=== PATIENT | female | born 1955 | race Caucasian/White ===

== ENCOUNTER 2020-07-25 12:25 | Outpatient (CLI) | payer MEDICARE, SELFPAY ==
--- NOTE | ~2020-07-25 | MM_ITS ---
EXAMINATION: MM screening [facility] BI w brodie HISTORY: Screening mammogram TECHNIQUE: Craniocaudal and mediolateral oblique 3-D tomosynthesis images were obtained and synthetic 2-D images were generated. CAD analysis was submitted and interpreted. COMPARISON: 04/14/2019, 12/02/2017, 11/19/2015 BREAST PARENCHYMAL COMPOSITION: There are scattered areas of fibroglandular density. FINDINGS: There is no evidence of suspicious mass, calcification, or architectural distortion to sugg est malignancy in either breast. There has been no suspicious interval change. IMPRESSION: 1. No mammographic evidence of malignancy. 2. Recommend routine screening mammography in one year. BI-RADS Category 1: Negative Reviewed, dictated and finalized at location A.
== END 2020-07-25 12:26 | disposition home or self-care (01) ==
LOC: ANHIMG 12:30
PROVIDERS: PCP Family Medicine; Visit Provider Family Medicine
DX: Z12.31 Encounter for screening mammogram for malignant neoplasm of breast (principal)
CPT/HCPCS: 77063; 77067

== ENCOUNTER 2020-09-10 09:03 | Outpatient (NON) | payer MEDICARE, SELFPAY ==
[2020-09-10 23:00] LABS: SARS-CoV-2 RNA PCR Negative
== END 2020-09-10 09:04 ==
LOC: ANHCOVIDDT 09:04
PROVIDERS: PCP Family Medicine; Visit Provider Family Medicine
DX: Z20.828 Contact with and (suspected) exposure to other viral communicable diseases (principal); J20.9 Acute bronchitis, unspecified
CPT/HCPCS: 87635; C9803; U0003

== ENCOUNTER 2020-10-11 10:29 | Outpatient (CLI) | payer MEDICARE, SELFPAY ==
--- NOTE | 2020-10-11 10:33 | EST_ITS ---
Patient Info Name: Shefali Wyman Age: 65 years : 1955 Gender: Female Ht: 62 in Wt: 183 lbs BSA: 1.94 m2 Exam Date: 10/11/2020 10:42 AM Exam Location: [facility] Stress Patient Status: Outpatient Admit Date: 10/11/2020 Staff Ordering Physician: En Muñiz MD Attending Provider: En Muñiz MD Exercise Technologist: Gretchen Helms RD Exercise Physician: Hong Luna DO Exam Type: CA stress test treadmill Study Info Indications R07.9 - Chest pain, unspecified A treadmill exercise stress test was performed. Summary 1. 1. Negative Darin exercise stress test for ischemic ST changes by ECG criteria. 2. 2. Poor functional capacity, achieving 4 METs of workload. 3. 3. Rapid HR response to exercise achieving 85% MPHR in first 30 seconds of exercise. 4. 4. Appropriate HR recovery at 1 minute post exercise. 5. 5. No imaging with stress testing. 6. 6. Patient informed of the above results. Protocol: Darin Stress ECG Details Stage: REST Duration (min): 4 min : 44 sec Speed (mph): 0.0 Grade (%): 0 HR (bpm): 87 SBP (mmHg): 139 DBP (mmHg): 75 METS: --- Stage: REST Duration (min): 9 min : 53 sec Speed (mph): 0.0 Grade (%): 0 HR (bpm): 83 SBP (mmHg): 139 DBP (mmHg): 75 METS: --- Stage: STAGE 1 Duration (min): 1 min : 0 sec Speed (mph): 1.7 Grade (%): 10 HR (bpm): 140 SBP (mmHg): 139 DBP (mmHg): 75 METS: --- Stage: STAGE 1 Duration (min): 2 min : 0 sec Speed (mph): 1.7 Grade (%): 10 HR (bpm): 148 SBP (mmHg): 139 DBP (mmHg): 75 METS: --- Stage: STAGE 1 Duration (min): 3 min : 0 sec Speed (mph): 1.7 Grade (%): 10 HR (bpm): 148 SBP (mmHg): 183 DBP (mmHg): 93 METS: --- Stage: RECOVERY Duration (min): 0 min : 59 sec Speed (mph): 0.0 Grade (%): 0 HR (bpm): 115 SBP (mmHg): 183 DBP (mmHg): 87 METS: --- Stage: RECOVERY Duration (min): 1 min : 59 sec Speed (mph): 0.0 Grade (%): 0 HR (bpm): 100 SBP (mmHg): 183 DBP (mmHg): 87 METS: --- Stage: RECOVERY Duration (min): 2 min : 59 sec Speed (mph): 0.0 Grade (%): 0 HR (bpm): 83 SBP (mmHg): 147 DBP (mmHg): 80 METS: --- Stage: RECOVERY Duration (min): 3 min : 59 sec Speed (mph): 0.0 Grade (%): 0 HR (bpm): 87 SBP (mmHg): 147 DBP (mmHg): 80 METS: --- Stage: RECOVERY Duration (min): 4 min : 49 sec Speed (mph): 0.0 Grade (%): 0 HR (bpm): 89 SBP (mmHg): 138 DBP (mmHg): 78 METS: --- Rest HR: 83 bpm Peak HR: 154 bpm Rest Sys BP: 139 mmHg Peak Sys BP: 183 mmHg Max Pred HR: 154 bpm % Max Pred HR: 100 % Target HR: 131 bpm Max RPP: 28,182 bpm*mmHg Carrera Score: -2 Target HR Summary: Test terminated after reaching maximum heart rate Termination Reason: Reached target heart rate or workload Cardiac Symptoms: Shortness of breath Max ST Seg Deviation: -0.90 mm Total Time: 3 min : 0 sec Rest Di
== END 2020-10-11 10:30 | disposition home or self-care (01) ==
PROVIDERS: PCP Family Medicine; Visit Provider Family Medicine
DX: R07.9 Chest pain, unspecified (principal)
CPT/HCPCS: 93017

== ENCOUNTER 2020-10-29 00:24 | Outpatient (CLI) | payer MEDICARE, SELFPAY ==
[2020-10-29 17:34] LABS: SARS-CoV-2 RNA PCR Negative
== END 2020-10-29 00:25 | disposition home or self-care (01) ==
LOC: ANHCOVIDDT 00:24
PROVIDERS: Family Provider Family Medicine; PCP Family Medicine; Visit Provider Internal Medicine Gastroenterology
DX: Z01.812 Encounter for preprocedural laboratory examination (principal); Z20.822 Contact with and (suspected) exposure to COVID-19
CPT/HCPCS: C9803; U0003; U0005

== ENCOUNTER 2020-10-30 12:17 | Outpatient (RCR) | payer MEDICARE, SELFPAY ==
--- NOTE | 2020-10-30 13:27 | PTOPEVAL ---
Thank you for referring Shefali Wyman to [facility].?Pt seen for initial evaluation today due to left shoulder pain. She is pain free without limitations since her injection on 10/18/20. She demonstrates shoulder and scapular weakness. She was provided as home exercise program at this time. She does not wish to return for additional f/u visits due to no restrictions reported. Will keep chart open for 30 days for possible change in symptoms or need to progress HEP. Please review, sign, date and return this plan of care MAGALIE. I agree with and certify that the following plan of care is medically necessary. Referring Physician Date Attending Provider: Lalo Astudillo MD Referring Provider: Lalo Astudillo MD Physical Therapy Evaluation Problem Diagnosis left shoulder pain Onset begin Oscar Cause unknown Subjective Information Reports she was having Query Text:As Reported By Patient/ shooting pain of the left Family shoulder region, but has improved significantly following the injection. Injection was on 10/18/20. Since the injection she denies any pain with reaching overhead, carrying objects or UE activities. She has mild discomfort with reaching behind her back. She is performing a leg bike 20-30 min a day, but does not perform stretching. She does not perform stretching program. X-Rays For This Problem Yes: moderate AC joint degenerative changes and mild glenohumeral arthritic emery Pain Assessment Self Report Pain Level 0/10 Upper Extremity Range of Motion Scapular/ Shoulder Range of Motion Right Shoulder Flexion - Active 165 Shoulder Extension - Active 50 Shoulder Abduction - Active 166 Shoulder Medial Rotation - Active 75 Shoulder Medial Rotation - Active T7 Query Text:Reach Behind the Back Shoulder Lateral Rotation - Active 80 Shoulder Lateral Rotation - Active T1 Query Text:Reach Behind the Head Left Shoulder Flexion - Active 165 Shoulder Extension - Active 45 Shoulder Abduction - Active 155 Shoulder Medial Rotation - Active 80 Shoulder Medial Rotation - Active T7 Query Text:Reach Behind the Back Shoulder Lateral Rotation - Active 85 Shoulder Lateral Rotation - Active T1 Query Text:Reach Behind the Head Scapular/Shoulder Range of Motion rotation measured with GH abd Comments 90 dg Upper Extremity Muscle Strength Testing Scapular/Shoulder Right Scapular Retraction - Middle Trapezius 2 Poor Shoulder Fl
== END 2021-01-14 10:30 | disposition home or self-care (01) ==
LOC: ANHPT 12:17
PROVIDERS: Family Provider Family Medicine; PCP Family Medicine; Referring Provider Orthopaedic Surgery; Visit Provider Orthopaedic Surgery
DX: M25.512 Pain in left shoulder (principal)
CPT/HCPCS: 97110

== ENCOUNTER 2021-01-03 11:12 | Outpatient (CLI) | payer MEDICARE, SELFPAY | END 2021-01-03 11:13 | disposition home or self-care (01) | LOC: ANHCOVIDVC 11:12 | PROVIDERS: PCP Family Medicine | DX: Z23 Encounter for immunization (principal) | CPT/HCPCS: 0001A; 91300 ==

== ENCOUNTER 2021-01-24 11:15 | Outpatient (CLI) | payer MEDICARE, SELFPAY | END 2021-01-24 11:16 | disposition home or self-care (01) | LOC: ANHCOVIDVC 11:16 | PROVIDERS: PCP Family Medicine | DX: Z23 Encounter for immunization (principal) | CPT/HCPCS: 0002A; 91300 ==

== ENCOUNTER 2021-02-08 14:20 | Emergency (ER) | payer MEDICARE, SELFPAY ==
[2021-02-08] VITALS (15 sets, daily range): BP systolic 154–210; BP diastolic 70–86; PULSE 58–86; RESP 10–30; TEMP 36.5; O2SAT 96–100
--- NOTE | ~2021-02-08 | XR_ITS ---
EXAMINATION: XR chest 2V EXAM DATE: 02/08/2021 15:07 INDICATION: Chest pressure, high blood pressure, lightheadedness. TECHNIQUE: Frontal and lateral projections of the chest obtained and reviewed. There is no prior alex dy for comparison. FINDINGS: The lungs are clear. There are no pleural effusions. The cardiomediastinal silhouette is within normal limits. There is no pneumothorax suspected. The bones and soft tissues are unremarkab le. There are cholecystectomy clips. IMPRESSION: No acute cardiopulmonary findings. Reviewed, dictated and finalized at location A.
--- NOTE | 2021-02-08 14:22 | ECG_ITS ---
Measurements Intervals [place] Rate: 70 P: 59 KS: 151 QRS: -4 QRSD: 103 T: 85 QT: 423 QTc: 458 Interpretive Statements SINUS RHYTHM BORDERLINE R WAVE PROGRESSION, ANTERIOR LEADS BORDERLINE T WAVE ABNORMALITY- HIGH LATERAL LEADS BASELINE ARTIFACT- V4-V5 BORDERLINE ECG Electronically Signed On 02-08-2021 17:29:01 CDT by Hong Luna D.O.
[2021-02-08 14:33] LABS: Basophils Absolute Auto 0.1 K/mm3 (0.0-0.1); Basophils Percent Auto 1.4 % (0.2-1.2); Eosinophils Absolute Auto 0.1 K/mm3 (0-0.3); Eosinophils Percent Auto 1.8 % (0-4.4); Hematocrit 47.5 % (37.0-47.0); Hemoglobin 15.8 g/dL (12.0-15.0); Immature Granulocyte Absolute 0.02 K/mm3 (0.00-0.031); Immature Granulocyte Percent A 0.3 % (0-0.5); Lymphocytes Absolute Auto 3.39 K/mm3 (0.9-3.2); Lymphocytes Percent Auto 45.9 % (18.3-44.2); Mean Corpuscular HGB Conc 33.3 g/dl (32-36); Mean Corpuscular Hemoglobin 29.3 pg (26-34); Monocytes Absolute Auto 0.7 K/mm3 (0.1-0.6); Monocytes Percent Auto 9.3 % (2.6-8.5); Neutrophils Absolute Auto 3.1 K/mm3 (1.3-6.7); Neutrophils Percent Auto 41.3 % (45.5-73.1); Platelet Count Result 235 k/mm3 (150-375); Red Cell Distribution Width 12.7 % (11.5-14.5); White Blood Count 7.4 K/mm3 (4.5-10.0)
[2021-02-08 14:42] LABS: Anion Gap 7 mmol/L (8-16); Blood Urea Nitrogen 10 mg/dL (7-17); Calcium 9.5 mg/dL (8.4-10.2); Carbon Dioxide 30 mmol/L (22-30); Chloride 105 mmol/L (98-107); Estimated CRCL calculation 54 ml/min; Estimated Glomerular Filt Rate > 60; Glucose 94 mg/dL (65-105); Sodium 142 mmol/L (137-145)
[2021-02-08 14:43] LABS: INR 0.9; Partial Thromboplastin Time 30.9 SECONDS (22.3-36.8); Prothrombin Time 12.7 Seconds (11.1-14.7)
[2021-02-08 15:01] LABS: Troponin I < 0.012 ng/mL (0.000-0.034)
--- NOTE | 2021-02-08 16:04 | ED.RECABL ---
HPI - Recheck/Abnormal Lab/Rx General Chief Complaint: Recheck/Abnormal Lab/Rx Stated Complaint: high blood pressure Time Seen by Provider: 02/08/21 16:01 History of Present Illness HPI narrative: 65 yo female w/ h/o htn presents to the ED for the same. She says that she has been having frequent frontal headaches for at least a few weeks. Because of this she has been checking her blood pressure. Today when she got the headache she checked and it was about 180 systolic. She called her PCP's office they told her to come to the ED. She continues to have a mild frontal headache. She reports that she did have a brief episode of chest pain a few days ago. Related Data Home Medications Medication Instructions Recorded Confirmed cyclobenzaprine 10 mg tablet 10 mg PO TID PRN 03/06/20 02/07/21 cholecalciferol (vitamin D3) 125 5,000 unit PO DAILY tablet 10/09/20 02/07/21 mcg (5,000 unit) tablet magnesium 250 mg PO DAILY 10/25/20 02/07/21 Allergies Allergy/AdvReac Type Severity Reaction Status Date / Time morphine Allergy Unknown Itching Verified 02/08/21 14:25 poison ifeoma extract Allergy Unknown Rash Verified 02/08/21 14:25 Review of Systems Review of Systems: All systems reviewed & are unremarkable except as noted in HPI and below Constitutional: Constitutional: Denies chills, Denies fever(s) and Denies weakness Eyes: Eyes: Reports no additional eye complaints ENT: Reports system reviewed and no additional complaints, except as documented Cardiovascular: Cardiovascular: Reports as per HPI Respiratory: Respiratory: Denies dyspnea Gastrointestinal: Gastrointestinal: Denies nausea and Denies vomiting Genitourinary: Genitourinary: Reports no additional female genitourinary complaints Neurologic: Reports as per HPI [facility] Past Medical History Medical History Acute bronchitis Acute sinusitis, unspecified BMI 33.0-33.9,adult Breast cancer screening by mammogram Chest pain Chronic bilateral low back pain with bilateral sciatica Chronic constipation Chronic depression (~10/30/20) Chronic left shoulder pain Colon cancer screening Essential (primary) hypertension Gastro-esophageal reflux disease without esophagitis Lipoma of shoulder Mixed hyperlipidemia Moderate persistent asthma, uncomplicated Vitamin B12 deficiency anemia Vitamin D insufficiency Surgical History Surgical History History of cholecystectomy Family History Family History Mother Patient's mother is , Onset Age: 79 Father Acute myocardial infarction, Onset Age: 58 Sibling Acute myocardial infarction, Onset Age: 75 Grandparent Family history of malignant neoplasm Family history of malignant neoplasm of breast Social History Social History Smoking packs per day: 2 Smoking cigarettes per day: 40.0 Years smoked: 30 Smoking pack-years: 60.00 Smoking status: Former smoker Tobacco type: cigarettes Alcohol intake: never Substance use: never Substance use type: does not use Gender identity (if verbalized by the patient): Female Spiritual care concerns: No Exam Const: General: no acute distress and alert Orientation/consciousness: patient oriented x3 HENMT: Head: normal to inspection Ears: external ears normal, TM's normal bilaterally and EAC's normal Eyes: Conjunctivae: conjunctivae normal Pupils: Equal, round and reactive pupils present EOM: EOMs intact bilaterally Resp: Effort & Inspection: normal respiratory effort Auscultation: clear to auscultation bilaterally Cardio: Rate: regular rate Rhythm: regular rhythm GI: GI Palp: Yes Soft to palpation and No Tenderness to palpation present (GI) Skin: General skin exam: normal color Neuro: Genera
[2021-02-08] MEDS: KETOROLAC 30 MG/ML VIAL (*BKC) IV PUSH (17:53)
[2021-02-08] MEDS: hydrALAZINE HCL 20 MG/ML VIAL IV PUSH (17:53)
[2021-02-08] MEDS: METOCLOPRAMIDE HCL INJ 10 MG/2 ML VIAL IV PUSH (17:54)
[2021-02-08 18:07] LABS: Troponin I < 0.012 ng/mL (0.000-0.034)
== END 2021-02-08 18:57 | disposition home or self-care (01) ==
PROVIDERS: Emergency Provider Emergency Medicine; PCP Family Medicine
DX: I10 Essential (primary) hypertension (principal); K21.9 Gastro-esophageal reflux disease without esophagitis; E78.2 Mixed hyperlipidemia; J45.40 Moderate persistent asthma, uncomplicated; D51.9 Vitamin B12 deficiency anemia, unspecified; E55.9 Vitamin D deficiency, unspecified; R94.31 Abnormal electrocardiogram [ECG] [EKG]; R07.9 Chest pain, unspecified
CPT/HCPCS: 36415; 71046; 80048; 84484; 85025; 85610; 85730; 93005; 96374; 96375; 99284; J0360; J1885; J2765

== ENCOUNTER → 2021-10-14 14:04 | Outpatient (CLI) | payer MEDICARE, SELFPAY ==
--- NOTE | ~2021-10-14 | XR_ITS ---
XR chest 2V DATE: 10/14/2021 14:22 INDICATION: Cough. Acute bronchitis. TECHNIQUE: 2 views COMPARISON: 02/08/2021 2 view chest FINDINGS: Normal heart size. Aortic arch calcification. No hilar or mediastinal enlargement. Moderate bilateral hyperinflation. No pulmonary infiltrate or consolidation, pleural effusion or pulm onary vascular congestion or pneumothorax. Status post cholecystectomy. IMPRESSION: No active cardiopulmonary disease Aortic atherosclerosis Status post cholecystectomy Reviewed, dictated and finalized at location A. 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
== END ==
PROVIDERS: PCP Family Medicine; Visit Provider Family Medicine
DX: J20.9 Acute bronchitis, unspecified (principal); I70.0 Atherosclerosis of aorta; Z90.49 Acquired absence of other specified parts of digestive tract
CPT/HCPCS: 71046

== ENCOUNTER 2022-07-17 14:47 | Outpatient (CLI) | payer MEDICARE, SELFPAY ==
--- NOTE | ~2022-07-17 | DEXA_ITS ---
Bone Density Report Name: BECCA HICKS Age: 66 Sex: Female Ethnicity: Garo Date of : 1955 Indication: postmenopausal; screening for osteoporosis; asthma or emphysema; hysterectomy; Referring Provider: ROSA, SACHI Lopez Study: Bone densitometry was performed. Exam Date: July 17, 2022 Accession number: [id number] Bone Density: Region BMD T-score Z-score Classification AP Spine(L1-L4) 0.811 -2.1 -0.2 Osteopenia Femoral Neck (Left) 0.623 -2.0 -0.4 Osteopenia Total Hip (Left) 0.745 -1.6 -0.2 Osteopenia Femoral Neck (Right) 0.655 -1.7 -0.1 Osteopenia Total Hip (Right) 0.820 -1.0 0.4 Normal Total Hip Mean 0.783 -1.3 0.1 Osteopenia World Health Organization criteria for BMD impression classify patients as: Normal (T-score at or above -1.0), Osteopenia (T-score between -1.0 and -2.5), or Osteoporosis (T-score at or below -2.5). 10-year Fracture Risk(1): Major Osteoporotic Fracture 11% Hip Fracture 1.8% Reported Risk Factors: [place] (), Neck BMD=0.623, BMI=32.7 (1) FRAX(R) Version 3.08. Fracture probability calculated for an untreated patient. Fracture probability may be lower if the patient has received treatment. Clinical Information Provided by Patient: Has used the following medications: Vitamin D Has the following medical conditions: Asthma or Emphysema, Hysterectomy Patient maximum height was 62.5 Menopause Age: 49 No regular weight bearing exercise Drinks caffeinated beverages Onset of menses at age 11 Number of children 2 Impression: The patient has low bone mass, based on the Total Spine T-score. The patient has an estimated ten-year risk of hip fracture of 1.8% and an estimated ten-year risk of major fracture of 11%, based on the WHO FRAX algorithm. Discussion: BONE DENSITY IS LOW AT ONE OR MORE SKELETAL SITES. This patient's lowest T-score is low at one or more skeletal sites. It meets the World Health Organization's (WHO) criteria for ?low bone mass? (T-score between -1.0 and -2.5). The patient's 10-year risk of fracture as calculated by FRAX is less than the threshold where pharmacological therapy is recommended by the National Osteoporosis Foundation (NOF). However, all treatment decisions require clinical judgment and consideration of individual patient factors, including patient preferences, comorbidities, previous drug use, risk factors not captured in the FRAX model (e.g., frailty, falls, vitamin D deficiency, increased bone turnover, interval significant decline in bone density) and possible under or overestimation of fracture risk by FRAX. The patient should follow a healthful lifestyle (good nutrition with adequate calcium and vitamin D, and appropriate weight-bearing exercise). Follow-Up: Consider repeating this study in 2 to 3 years
--- NOTE | ~2022-07-17 | MM_ITS ---
EXAMINATION: MM screening [facility] BI w brodie HISTORY: Screening TECHNIQUE: Craniocaudal and mediolateral oblique 3-D tomosynthesis images were obtained and synthetic 2-D images were generated. CAD analysis was submitted and interpreted. COMPARISON: Comparison to multiple prior studies sequentially, with oldest reviewed study dated 05/11. BREAST PARENCHYMAL COMPOSITION: There are scattered areas of fibroglandular density. FINDINGS: There is no evidence of suspicious mass, calcification, or architectural distortion to sugg est malignancy in either breast. There has been no suspicious interval change. IMPRESSION: 1. No mammographic evidence of malignancy. 2. Recommend routine screening mammography in one year. BI-RADS Category 1: Negative Reviewed, dictated and finalized at location A.
== END 2022-07-17 14:48 | disposition home or self-care (01) ==
PROVIDERS: PCP Family Medicine; Visit Provider Nurse Practitioner Obstetrics & Gynecology
DX: Z12.31 Encounter for screening mammogram for malignant neoplasm of breast (principal); M85.88 Other specified disorders of bone density and structure, other site; M85.852 Other specified disorders of bone density and structure, left thigh; M85.851 Other specified disorders of bone density and structure, right thigh
CPT/HCPCS: 77063; 77067; 77080

== ENCOUNTER 2022-12-09 12:16 | Day surgery (SDC) | payer MEDICARE, SELFPAY ==
[2022-08-19 14:27] VITALS: BMI 32.4
[2022-09-25 10:38] VITALS: BMI 33.0
--- NOTE | 2022-09-25 11:13 | SUR.PREOP ---
PRE-OPERATIVE [address] [address] 1. Report to the Surgery Center Waiting Room, the entrance is the first door on the right after passing through the automatic sliding doors, at time 0900_on date__10/06/21____. OR Time:____1030 . - You and your visitor will be asked to self-screen and do not enter if you have any COVID symptoms. - Two visitors over, age 16 and older, are allowed.? NO children visitors are allowed at this time. - Masking is based on community transmissions levels [facility].? When the community transmission level is HIGH, masking will be required.? Signage will be posted indicating if masking is required the day of your procedure.? 2. Patients may have clear liquids (water, carbonated beverages, clear teas, apple juice) until 3 hours prior to surgery with a maximum of 20 ounces. - No food from midnight until time of surgery. - Infants may have breast milk until 4 hours before surgery, formula 6 hours prior to surgery. - Children will be allowed to drink immediately following surgery. If applicable, please bring a bottle or sippy cup to assist with drinking. Juice, water, soda, and popsicles are readily available. For infants on formula, please bring formula the day of surgery. Pacifiers are allowed. 3. Take the following medications with a SIP of water the morning of surgery: 1. amlodipine 2. duloxetine 3. pantoprazole Medications to discontinue per physician order: 1. date to discontinue: 4. No make-up, nail ukrainian, hairspray, perfume, deodorant, or body powder the day of surgery. No jewelry (including any body piercings) or valuables the day of surgery. Please take a shower or bath the night before, or the morning of, surgery with an antibacterial soap. Wear comfortable, loose fitting clothing. Children are encouraged to wear pajamas. - Jewelry must be removed prior to entering the operating room. Rings and piercings that are not removed will be cut off. The center will not accept responsibility for valuables. Please leave all valuables, including medications, at home the day of surgery. 5. When going home after surgery, a licensed reach lift truck driver must drive you home. NO public transportation without another adult. We recommend someone to stay with you, no alcoholic beverages, driving or important decision making for 24 hours after surgery. For pediatric surgeries, we recommend two adults to accompany a child home. (Only one will be allowed into the building with the patient) 6. If you or anyone in your household have experienced Covid symptoms in the past week, please notify your surgeon or surgery center at phone number below for possible testing. 7. Follow any additional instructions given by your physician. Telephone instructions given to: patient and asked if any additional questions and then verbalized understanding. Patient advised to call surgeon office or the surgery center at [phone] if any additional questions.
[2022-12-01 13:47] VITALS: BMI 32.2
[2022-12-09 12:41] VITALS: BP 137/78; PULSE 70; RESP 15; TEMP 37.2; O2SAT 99; BMI 33.7
[2022-12-09] MEDS: LACTATED RINGERS 1,000 ML 150 ML IV CONT (12:52)
--- NOTE | 2022-12-09 13:59 | PM.HPGS ---
History of Present Illness History of Present Illness Consent: Risks, benefits, and alternatives have been discussed and questions answered. Patient agrees to proceed with procedure. Chief complaint: History of Colon Polyps Narrative: Shefali Wyman is a 67 year old female Presents for screening colonoscopy. Patient has a distant history of colon polyps in 2002. Several recent colonoscopy subsequently of revealed no evidence recurrent polyps. Patient reports her current weight appetite bowel movements are normal. Patient denies abdominal pain. She has had no bleeding. Review of Systems Review of Systems: Review of systems noncontributory. [facility] Past Medical History Medical History (Updated 11/26/22 @ 12:06 by En Muñiz MD) Acute bronchitis chest x-ray on 10/14/2021 Was negative except for hyperinflation. 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 Essential (primary) hypertension Gastro-esophageal reflux disease without esophagitis Lipoma of shoulder Mixed hyperlipidemia total cholesterol 267, triglycerides 137, HDL 70, LDL 170 on 11/19/2021 Moderate persistent asthma, uncomplicated Obesity (BMI 30.0-34.9) Seasonal allergic rhinitis UTI (urinary tract infection) Vitamin B12 deficiency anemia 940 on 11/19/2021 Vitamin D insufficiency Surgical History Surgical History History of cholecystectomy Family History Family History Mother Patient's mother is , Onset Age: 79 Father Acute myocardial infarction, Onset Age: 58 Sibling Acute myocardial infarction, Onset Age: 75 Grandparent Family history of malignant neoplasm Family history of malignant neoplasm of breast Social History Social History (Updated 11/26/22 @ 11:30 by Milvia Nolen MA) Smoking packs per day: 2 Smoking cigarettes per day: 40.0 Years smoked: 30 Smoking pack-years: 60.00 Smoking status: Former smoker Tobacco type: cigarettes Alcohol intake: never Substance use: never Substance use type: does not use Lack of Transportation: No Lack of Food: Never True Current Housing: I Do Not Have Housing Concerned About Future Housing: No Difficulty Paying Gas/Electric Bills: No Difficulty Paying for Meds: No Currently Unemployed: No Education: High School Diploma/GED Difficulty w/ Childcare or Family Care: No Living arrangements: with family Occupation/Education: retired Gender identity (if verbalized by the patient): Female Spiritual care concerns: No Meds Home Medications and Allergies Home Medications Medication Instructions Recorded Confirmed Type albuterol sulfate 90 mcg/actuation 2 inhalation inhalation Q4H PRN 03/06/20 12/09/22 Rx aerosol inhaler (ProAir HFA) shortness of breath #54 grams cyclobenzaprine 10 mg tablet 10 mg PO TID PRN muscle spasm 03/06/20 12/09/22 History budesonide-formoterol HFA 160 2 puff inhalation Q12H #30.6 grams 10/09/20 12/09/22 Rx mcg-4.5 mcg/actuation aerosol inhaler (Symbicort) cholecalciferol (vitamin D3) 125 5,000 unit PO DAILY 10/09/20 12/09/22 History mcg (5,000 unit) tablet cyanocobalamin (vitamin B-12) 2,500 mcg PO DAILY #30 tabs 10/09/20 12/09/22 Rx 2,500 mcg tablet cetirizine 10 mg tablet (Zyrtec) 10 mg PO DAILY PRN Nasal Congestion 04/08/21 12/09/22 History fluticasone propionate 50 1 spray intranasal Q12H PRN 04/08/21 12/09/22 History mcg/actuation nasal Allerg
--- NOTE | 2022-12-09 14:43 | WPDANESEPPF ---
Anes - Initial Pre Proc Eval Procedure: Operation Date: 12/09/22 14:00 Proposed Procedures p Screening Colonoscopy - Edouard Snyder MD Date/Time: 12/09/22 14:43 Surgeon: Edouard Snyder MD Pre Op Diagnosis: History of Colon Polyps Patient Data Age: 67 Gender: F Height: 1.57 m Weight: 83.7 kg Last Vital Signs Temp 37.2 C 12/09/22 12:41 Pulse 70 12/09/22 12:41 Resp 15 12/09/22 12:41 BP 137/78 12/09/22 12:41 Pulse Ox 99 12/09/22 12:41 O2 Del Method Room Air 12/09/22 12:41 Allergies Allergy/AdvReac Type Severity Reaction Status Date / Time morphine Allergy Unknown Itching Verified 12/09/22 12:35 poison ifeoma extract Allergy Unknown Rash Verified 12/09/22 12:35 Home Medications Medication Instructions Recorded Confirmed Type albuterol sulfate 90 mcg/actuation 2 inhalation inhalation Q4H PRN 03/06/20 12/09/22 Rx aerosol inhaler (ProAir HFA) shortness of breath #54 grams cyclobenzaprine 10 mg tablet 10 mg PO TID PRN muscle spasm 03/06/20 12/09/22 History budesonide-formoterol HFA 160 2 puff inhalation Q12H #30.6 grams 10/09/20 12/09/22 Rx mcg-4.5 mcg/actuation aerosol inhaler (Symbicort) cholecalciferol (vitamin D3) 125 5,000 unit PO DAILY 10/09/20 12/09/22 History mcg (5,000 unit) tablet cyanocobalamin (vitamin B-12) 2,500 mcg PO DAILY #30 tabs 10/09/20 12/09/22 Rx 2,500 mcg tablet cetirizine 10 mg tablet (Zyrtec) 10 mg PO DAILY PRN Nasal Congestion 04/08/21 12/09/22 History fluticasone propionate 50 1 spray intranasal Q12H PRN 04/08/21 12/09/22 History mcg/actuation nasal Allergy Symptoms spray,suspension ibuprofen 800 mg tablet 800 mg PO TID PRN pain #90 tabs 05/02/21 12/09/22 Rx montelukast 10 mg tablet 10 mg PO DAILY #90 tabs 05/01/22 12/09/22 Rx pantoprazole 40 mg tablet,delayed 40 mg PO QAM #90 tabs 05/01/22 12/09/22 Rx release (Protonix) sodium,potassium,mag sulfates 17.5 See Rx Instructions PO .COMPLEX 08/29/22 11/26/22 Rx gram-3.13 gram-1.6 gram oral soln #354 mL (Suprep Bowel Prep Kit) duloxetine 30 mg capsule,delayed 30 mg PO DAILY #90 caps 10/02/22 12/09/22 Rx release (Cymbalta) amlodipine 5 mg tablet 5 mg PO DAILY #90 tabs 11/07/22 12/09/22 Rx irbesartan 300 mg tablet 300 mg PO DAILY #90 tabs 11/07/22 12/09/22 Rx Patient hx anesthesia problems: none Family hx anesthesia problems: none Results Review: All pre-operative results and documents have been reviewed as part of the pre-operative evaluation. [facility] Past Medical History Medical History Acute bronchitis chest x-ray on 10/14/2021 Was negative except for hyperinflation. Acute sinusitis, unspecified BMI 32.0-32.9,adult BMI 33.0-33.9,adult BMI 34.0-34.9,adult Breast cancer screening by mammogram Chest pain Chronic bilateral low back pain with bilateral sciatica Chronic constipation Chronic depression (~10/30/20) Chronic left shoulder pain Colon cancer screening Encounter for HCV screening test for low risk patient (10/10/22) screening by house calls advanced advanced practice registered nurse 10/10/2022 was negative for hepatitis C. Essential (primary) hypertension Gastro-esophageal reflux disease without esophagitis Lipoma of shoulder Mixed hyperlipidemia total cholesterol 267, triglycerides 137, HDL 70, LDL 170 on 11/19/2021 Moderate persistent asthma, uncomplicated Obesity (BMI 30.0-34.9) Seasonal allergic rhinitis UTI (urinary tract infection) Vitamin B12 deficiency anemia 940 on 11/19/2021 Vitamin D insufficiency Surgical History Surgical History (Updated 12/09/22 @ 14:43 by Fili Robertson MD) H/O: hysterectomy History of cholecystectomy Family History Family History Mother Patient's mother is , Onset Age: 79 Father Acute myocardial infarction, Onset Age: 58 Sibling Acute myocardial infarction, Onset Age: 75 Grandp
[2022-12-09 15:22] VITALS: BP 131/69; PULSE 78; RESP 15; O2SAT 98
[2022-12-09 15:32] VITALS: BP 142/76; PULSE 78; RESP 15; O2SAT 99
--- NOTE | 2022-12-09 15:32 | WPDANESPN ---
Anes - Prog Note Post-Op Date/Time: 12/09/22 15:32 Cardiovascular status: normal Respiratory status: normal Airway patency: baseline Mental status: baseline Vital Signs: Last Vital Signs Temp 37.2 C 12/09/22 12:41 Pulse 78 12/09/22 15:22 Resp 15 12/09/22 15:22 BP 131/69 12/09/22 15:22 Pulse Ox 98 12/09/22 15:22 O2 Del Method Room Air 12/09/22 15:22 Pain Score (VAS): 0/10 I/O: Intake & Output 12/08/22 12/09/22 12/09/22 23:59 07:59 15:59 Intake Total 800 Balance 800 Patient Feedback: Patient satisfied with anesthetic care.
[2022-12-09 15:42] VITALS: BP 148/83; PULSE 66; RESP 15; O2SAT 100
== END 2022-12-09 16:06 | disposition home or self-care (01) ==
PROVIDERS: PCP Family Medicine; Visit Provider Internal Medicine Gastroenterology
PROC: 0DJD8ZZ Inspection of Lower Intestinal Tract, Via Natural or Artificial Opening Endoscopic (ICD-10-PCS; CPT 45378; principal; 2022-12-09 14:00)
DX: Z12.11 Encounter for screening for malignant neoplasm of colon (principal)
CPT/HCPCS: 45378

== ENCOUNTER 2023-04-06 13:36 | Outpatient (CLI) | payer MEDICARE, SELFPAY ==
--- NOTE | ~2023-04-06 | XR_ITS ---
EXAMINATION: XR chest 2V DATE: 04/06/2023 14:05 INDICATION: Acute bronchitis TECHNIQUE: Frontal and lateral views of the chest are obtained COMPARISON: 10/14/2021 FINDINGS: The lungs are free of acute opacities. No pleural effusion or pneumothorax. The cardiomedia stinal silhouette is normal. There is mild thoracic spondylosis. Surgical clips in the upper abdomen on the lateral view are likely from prior cholecystectomy. IMPRESSION: 1. No acute cardiopulmonary abnormality. Reviewed, dictated and finalized at location B.
== END 2023-04-06 13:37 | disposition home or self-care (01) ==
PROVIDERS: PCP Family Medicine; Visit Provider Family Medicine
DX: J20.9 Acute bronchitis, unspecified (principal)
CPT/HCPCS: 71046

== ENCOUNTER 2023-04-23 11:27 | Emergency (ER) | payer MEDICARE, SELFPAY ==
[2023-04-23 11:38] VITALS: BP 147/85; PULSE 85; RESP 16; TEMP 35.9; O2SAT 97
[2023-04-23 11:40] VITALS: BP 147/85; PULSE 85; RESP 16; TEMP 35.9; O2SAT 97
--- NOTE | 2023-04-23 11:50 | ED.SKABFB ---
HPI - Skin/Abscess/Foreign Bdy General Chief complaint: Skin/Abscess/Foreign Body Stated complaint: RASH Time Seen by Provider: 04/23/23 11:50 Source: patient Mode of arrival: ambulatory Limitations: no limitations History of Present Illness HPI narrative: 67 yo F presents with c/o itchy rash to L forearm for 2 wks. has tried benadryl cream and hydrocortisone with no relief. Pt states she set bags full of clothes on side of road in some weeds to be picked up. No one came so she carried bags into her garage. Unsure if she was exposed to posion ifeoma. No other complaints today. All systems reviewed and negative except as noted above. Related Data Home Medications Medication Instructions Recorded Confirmed fluticasone propionate 50 1 spray intranasal Q12H PRN 04/08/21 04/23/23 mcg/actuation nasal Allergy Symptoms spray,suspension Allergies Allergy/AdvReac Type Severity Reaction Status Date / Time morphine Allergy Unknown Itching Verified 04/23/23 11:38 poison ifeoma extract Allergy Unknown Rash Verified 04/23/23 11:38 Review of Systems Review of Systems: CONSTITUTIONAL: Denies fever, chills, or sweats. EYES: Denies visual changes, redness, or discharge. ENT: Denies rhinorrhea, congestion, sore throat, or otalgia. CARDIOVASCULAR: Denies chest pain, palpitations, or edema. RESPIRATORY: Denies cough or dyspnea. GASTROINTESTINAL: Denies abdominal pain, nausea, vomiting, or diarrhea. GENITOURINARY: Denies dysuria or hematuria. SKIN: Reports rash, itching. MUSCULOSKELETAL: Denies back pain, joint pain, or myalgia. NEUROLOGIC: Denies headache, numbness, or weakness. PSYCHIATRIC: Denies anxiety or depression. All other systems reviewed are negative, except as documented in HPI. [facility] Past Medical History Medical History (Updated 04/23/23 @ 11:58 by Monika Christianson NP) Acute bronchitis chest x-ray on 10/14/2021 Was negative except for hyperinflation. chest x-ray 04/06/2023 with no active lung disease. Acute sinusitis, unspecified Acute thoracic back pain (~02/2023) spondylosis of the thoracic spine on chest x-ray 04/06/2023. BMI 32.0-32.9,adult BMI 33.0-33.9,adult BMI 34.0-34.9,adult Breast cancer screening by mammogram Chest pain Chronic bilateral low back pain with bilateral sciatica Chronic constipation Chronic depression (~10/30/20) Chronic left shoulder pain Colon cancer screening history of colon polyps 2002 with normal subsequent colonoscopies. Colonoscopy 12/09/2022 was normal with recheck in 10 years. Encounter for HCV screening test for low risk patient (10/10/22) screening by house calls advanced state appellate clerk 10/10/2022 was negative for hepatitis C. Essential (primary) hypertension Gastro-esophageal reflux disease without esophagitis Lipoma of shoulder Mixed hyperlipidemia total cholesterol 267, triglycerides 137, HDL 70, LDL 170 on 11/19/2021 Moderate persistent asthma, uncomplicated Obesity (BMI 30.0-34.9) Seasonal allergic rhinitis UTI (urinary tract infection) Vitamin B12 deficiency anemia 940 on 11/19/2021 Vitamin D insufficiency Surgical History Surgical History (Updated 12/09/22 @ 14:43 by Fili Robertson MD) H/O: hysterectomy History of cholecystectomy Family History Family History Mother Patient's mother is , Onset Age: 79 Father Acute myocardial infarction, Onset Age: 58 Sibling Acute myocardial infarction, Onset Age: 75 Grandparent Family history of malignant neoplasm Family history of malignant neoplasm of breast Social History Social History Smoking packs per day: 2 Smoking cigarettes per day: 40.0 Years smoked: 30 Smoking pack-years: 60.00 Smoking status: Former smoker Tobacco type: cigarettes Alcohol intake: never Substance use: never Substance use type: does not use Lack of Transp
== END 2023-04-23 12:03 | disposition home or self-care (01) ==
PROVIDERS: Emergency Provider Nurse Practitioner Family; PCP Family Medicine
DX: L25.5 Unspecified contact dermatitis due to plants, except food (principal); Z87.891 Personal history of nicotine dependence; I10 Essential (primary) hypertension; K21.9 Gastro-esophageal reflux disease without esophagitis; E78.2 Mixed hyperlipidemia; J45.909 Unspecified asthma, uncomplicated; E66.9 Obesity, unspecified; Z68.32 Body mass index [BMI] 32.0-32.9, adult
CPT/HCPCS: 99213; G0463

== ENCOUNTER 2023-07-31 07:56 | Outpatient (CLI) | payer MEDICARE, SELFPAY ==
--- NOTE | 2023-08-01 06:07 | WPDPFTINT ---
PFT Procedure Performed PFT Procedure Performed Spirometry with Pre/Post Bronchodilator Plethysmography (Lung Vol) Diffusing Cap (DLCO) Flow Vol Loop PFT Interpretation This is a pulmonary function test with pre and post-bronchodilator spirometry, plethysmography and diffusing capacity. The test was performed and results interpreted in accordance with the 2019 and 2005 ATS/ERS Task Force guidelines respectively using the Global Lung Function Initiative-2012 reference equations. Patient demonstrated good effort and cooperation. Reproducibility criteria were met. The quality of the pre bronchodilator spirometry maneuver was Grade A and post bronchodilator spirometry maneuver was Grade A. Findings: Spirometry: There is decreased maximal expiratory airflow at all lung volumes with concave expiratory flow tracing. The contour the inspiratory flow tracing is normal. The pre bronchodilator FVC is 2.44 L, 90% predicted. The pre bronchodilator FEV1 is 1.07 L, 51% predicted. The pre bronchodilator FEV1: FVC ratio is 44%. The post bronchodilator FVC is 2.82 L, representing a 16% increase. The post bronchodilator FEV1 is 1.24 L, representing a 16% increase. The post bronchodilator FEV1: FVC ratio is 44%. Plethysmography: The total lung capacity is 5.17 L, 109% predicted. The functional residual capacity is 3.00 L, 112% predicted. The residual volume is 2.73 L, 134% predicted. Diffusing capacity: The diffusing capacity unadjusted for hemoglobin and carboxyhemoglobin is 10.0, 50% predicted. The diffusing capacity adjusted for alveolar volume is 2.81, 64% predicted. Impression: There is a moderately severe obstructive abnormality with significant improvement after inhaling a single dose of albuterol. Lung volumes are normal. The diffusing capacity unadjusted for hemoglobin and carboxyhemoglobin is moderately decreased and remains mildly decreased when adjusted for alveolar volume. There are no prior studies for comparison
== END 2023-07-31 07:57 | disposition home or self-care (01) ==
PROVIDERS: PCP Family Medicine; Visit Provider Physician Assistant
DX: J45.909 Unspecified asthma, uncomplicated (principal); R05.3 Chronic cough; R94.2 Abnormal results of pulmonary function studies
CPT/HCPCS: 94060; 94726; 94729

== ENCOUNTER 2023-10-13 13:18 | Outpatient (CLI) | payer MEDICARE, SELFPAY ==
--- NOTE | ~2023-10-13 | CT_ITS ---
EXAMINATION:CT diagnostic chest wo con DATE: 10/13/2023 13:53 INDICATION: Chronic cough. Unspecified asthma. TECHNIQUE: Computed tomography (CT) of the chest was performed without intravenous contrast. Automate d exposure control and iterative reconstruction technique were employed. The dose-length product (DLP ) was 294.39 mGy-cm. COMPARISON: Chest 2 views 04/06/2023 FINDINGS: The lungs demonstrate mild atelectasis. There is a 6 mm nodule at minor fissure, likely suzanne ign. There is moderate emphysema. No pleural effusion. The heart size is normal. There are coronary a rtery calcifications. No pericardial effusion. There is a small sliding hiatal hernia. There are emery ges of cholecystectomy. There is severe cervical and thoracic spondylosis. There is chronic height lo ss of multiple vertebral bodies. IMPRESSION: 1. Moderate emphysema. Reviewed, dictated and finalized at location E. [facility] [employer] IMPRESSION: 1. Moderate emphysema.
== END 2023-10-13 13:19 | disposition home or self-care (01) ==
PROVIDERS: PCP Family Medicine; Visit Provider Physician Assistant
DX: R94.2 Abnormal results of pulmonary function studies (principal); R05.3 Chronic cough; J45.909 Unspecified asthma, uncomplicated; J43.9 Emphysema, unspecified
CPT/HCPCS: 71250

== ENCOUNTER 2024-01-21 09:07 | Outpatient (CLI) | payer MEDICARE, SELFPAY ==
[2024-01-21 10:21] LABS: Alanine Aminotransferase 16 U/L (6-35); Albumin Level 4.4 g/dL (3.5-5.1); Alkaline Phosphatase 89 U/L (38-126); Anion Gap 4 mmol/L (4-12); Aspartate Amino Transferase 24 U/L (14-36); Bilirubin,Total 0.5 mg/dL (0.2-1.3); Blood Urea Nitrogen 14 mg/dL (7-17); Calcium 9.4 mg/dL (8.4-10.2); Carbon Dioxide 32 mmol/L (22-30); Chloride 107 mmol/L (98-107); Cholesterol 236 mg/dL (0-200); Estimated Glomerular Filt Rate > 60; Glucose 95 mg/dL (65-110); HDL Direct 54 mg/dL; Potassium 3.9 mmol/L (3.4-5.0); Sodium 143 mmol/L (137-145); Triglycerides 154 mg/dL (<150)
[2024-01-21 10:32] LABS: LDL Cholesterol Direct 140 mg/dL
== END 2024-01-21 09:08 | disposition home or self-care (01) ==
LOC: ANHLAB 09:10
PROVIDERS: PCP Family Medicine; Visit Provider Internal Medicine Cardiovascular Disease
DX: E78.2 Mixed hyperlipidemia (principal)
CPT/HCPCS: 36415; 80053; 80061

== ENCOUNTER 2024-03-25 08:29 | Outpatient (CLI) | payer MEDICARE, SELFPAY ==
[2024-03-25 09:59] LABS: Alanine Aminotransferase 18 U/L (6-35); Albumin Level 4.1 g/dL (3.5-5.1); Alkaline Phosphatase 96 U/L (38-126); Anion Gap 6 mmol/L (4-12); Aspartate Amino Transferase 29 U/L (14-36); Bilirubin,Total 0.4 mg/dL (0.2-1.3); Blood Urea Nitrogen 7 mg/dL (7-17); Calcium 8.8 mg/dL (8.4-10.2); Carbon Dioxide 27 mmol/L (22-30); Chloride 108 mmol/L (98-107); Cholesterol 161 mg/dL (0-200); Estimated Glomerular Filt Rate > 60; Glucose 93 mg/dL (65-110); HDL Direct 42 mg/dL; Potassium 3.7 mmol/L (3.4-5.0); Sodium 141 mmol/L (137-145); Triglycerides 289 mg/dL (<150)
[2024-03-25 10:10] LABS: LDL Cholesterol Direct 86 mg/dL
== END 2024-03-25 08:30 | disposition home or self-care (01) ==
PROVIDERS: PCP Family Medicine; Visit Provider Internal Medicine Cardiovascular Disease
DX: E78.2 Mixed hyperlipidemia (principal)
CPT/HCPCS: 36415; 80053; 80061

== ENCOUNTER 2024-05-25 10:54 | Emergency (ER) | payer MEDICARE, SELFPAY ==
[2024-05-25 11:04] VITALS: BP 145/89; PULSE 96; RESP 16; TEMP 36.2; O2SAT 98
--- NOTE | 2024-05-25 11:05 | ED.URI ---
HPI - URI/Sore Throat General Chief Complaint: Upper Respiratory Infection Stated Complaint: SINUS HEADACHE/L NECK/SHOULDER PAIN WITH KNOT Time Seen by Provider: 05/25/24 11:08 Source: patient and RN notes reviewed Mode of arrival: ambulatory Limitations: no limitations History of Present Illness HPI Narrative: 68 year old female who presents to [facility] care with complaints of sinus pressure and frontal headache for the past 2 days. Patient reports that she got an antibiotic from Dr Muñiz about 2 weeks ago and took it for her sinuses and cough and did seen to get better till she started with headache a couple of days ago. Patient reports that she has no fevers, chills or sweats, denies any cough or chest congestion. Patient reports that she also has some pressure to her left neck and shoulder, denies any fevers, Patient reports that she has been taking some Ibuprofen for her symptoms and did take some Sudafed. MD elicited complaint: cough, rhinorrhea, nasal congestion and other (headache) Onset (ago): day(s) (2) Severity: mild Able to tolerate fluids by mouth: Yes Treatments prior to arrival: ibuprofen and other (Sudafed) Related Data Home Medications Medication Instructions Recorded Confirmed Alpha Brain 1 cap PO DAILY 05/25/24 05/25/24 B Complex Plus Vitamin C 1 tab-cap PO DAILY 05/25/24 05/25/24 azithromycin 250 mg tablet mg 05/25/24 Allergies Allergy/AdvReac Type Severity Reaction Status Date / Time morphine Allergy Unknown Itching Verified 05/25/24 11:03 poison ifeoma extract Allergy Unknown Rash Verified 05/25/24 11:03 Review of Systems Review of Systems: CONSTITUTIONAL: Denies malaise, chills, sweats, or fever. EYES: Denies visual changes, redness, or discharge. ENT: Reports rhinorrhea, congestion, sinus pain,no otalgia and no sore throat. CARDIOVASCULAR: Denies chest pain, palpitations, or edema. RESPIRATORY: Reports no cough.? Denies dyspnea. GASTROINTESTINAL: Denies abdominal pain, nausea, vomiting, diarrhea SKIN: Denies rash or itching. MUSCULOSKELETAL: Denies myalgia. NEUROLOGIC: Reports some frontal headache. All systems reviewed & are unremarkable except as noted in HPI and below PMFSH Past Medical History Medical History Acute bronchitis chest x-ray on 10/14/2021 Was negative except for hyperinflation. chest x-ray 04/06/2023 with no active lung disease. Acute sinusitis, unspecified Acute thoracic back pain (~02/2023) spondylosis of the thoracic spine on chest x-ray 04/06/2023. At low risk for fall BMI 32.0-32.9,adult BMI 33.0-33.9,adult BMI 34.0-34.9,adult Breast cancer screening by mammogram Chest pain Chronic bilateral low back pain with bilateral sciatica Chronic bilateral thoracic back pain (07/07/17) MRI of the thoracic spine on 07/10/2023 with degenerative changes. Spondylosis of the thoracic spine on chest x-ray 07/04/2023. Chronic constipation Chronic cough CT of the chest on 10/13/2023 with moderate Emphysema, coronary artery calcifications, severe spondylosis of cervical thoracic spine. Chronic depression (~10/30/20) Chronic left shoulder pain Colon cancer screening history of colon polyps 2002 with normal subsequent colonoscopies. Colonoscopy 12/09/2022 was normal with recheck in 10 years. Coronary artery calcification seen on CAT scan (10/13/23) calcifications noted on CT of the chest 10/13/2023. Encounter for HCV screening test for low risk patient (10/10/22) screening by house calls advanced speech clinician 10/10/2022 was negative for hepatitis C. Essential (primary) hypertension Gastro-esophageal reflux disease without esophagitis Lipoma of shoulder Mixed hyperlipidemia total cholesterol 267, triglycerides 137, HDL 70, LDL 170 on 11/19/2021. Cholesterol 277, triglycerides 147, HDL excellent at 60, LDL 188 with ratio 4.6 on 06/23/2023. Cholesterol 236, triglycerides 154, HDL 54, LDL 140 on 01/21/2024.
[2024-05-25 11:08] VITALS: BP 145/89; PULSE 96; RESP 16; TEMP 36.2; O2SAT 98
== END 2024-05-25 11:26 | disposition home or self-care (01) ==
PROVIDERS: Emergency Provider Registered Nurse; PCP Family Medicine
DX: R51.9 Headache, unspecified (principal); J34.89 Other specified disorders of nose and nasal sinuses; Z87.891 Personal history of nicotine dependence; I10 Essential (primary) hypertension; K21.9 Gastro-esophageal reflux disease without esophagitis; E78.2 Mixed hyperlipidemia; J45.909 Unspecified asthma, uncomplicated; E66.9 Obesity, unspecified; Z68.32 Body mass index [BMI] 32.0-32.9, adult
CPT/HCPCS: 99213; G0463

== ENCOUNTER 2024-10-12 08:37 | Outpatient (CLI) | payer MEDICARE, SELFPAY ==
--- NOTE | ~2024-10-12 | CT_ITS ---
EXAMINATION: CT diagnostic chest wo con DATE: 10/12/2024 09:11 INDICATION: R91.1 - Solitary pulmonary nodule TECHNIQUE: Computed tomography (CT) of the chest was performed without intravenous contrast. Addition al 3D reconstructions utilizing coronal maximum intensity projection (MIP) were performed. Automated exposure control and iterative reconstruction technique were employed. The dose-length product was 10 0.19 mGy-cm. COMPARISON: 10/13/2023 FINDINGS: Moderate emphysema. Unchanged discoid atelectasis/scarring at the lingula. No interval change in a 12 x 3 x 3 mm flat triangular likely benign mairann fissural lymph node along the right minor fissure. The re is a second 3 mm triangular likely mariann fissural lymph node more caudally along the minor fissure. No pneumonia, pulmonary edema or pleural effusion. Heart size is normal. Atherosclerotic coronary ar blayne calcification is. No pericardial effusion. Thoracic aorta is normal in caliber. No pathologicall y enlarged thoracic lymphadenopathy. Cholecystectomy clips the gallbladder fossa. Small sliding-type hiatal hernia. Severe thoracic and lower cervical spondylosis. Again seen is chronic mild anterior we dging of a few thoracic and upper lumbar vertebral bodies. IMPRESSION: 1. Moderate emphysema with no interval change in the previously noted likely mariann fissural lymph node along the minor fissure. Reviewed, dictated and finalized at location B. TEACHER IMPRESSION: 1. Moderate emphysema with no interval change in the previously noted likely pe ri fissural lymph node along the minor fissure.
== END 2024-10-12 08:38 | disposition home or self-care (01) ==
PROVIDERS: PCP Family Medicine; Visit Provider Physician Assistant
DX: R91.1 Solitary pulmonary nodule (principal); J43.9 Emphysema, unspecified
CPT/HCPCS: 71250

== ENCOUNTER 2024-10-20 13:58 | Inpatient (IN) | payer MEDICARE, SELFPAY ==
[2024-10-20] VITALS (22 sets, daily range): BP systolic 114–154; BP diastolic 64–105; PULSE 77–121; RESP 12–37; TEMP 36.4; O2SAT 88–97; BMI 32.3
--- NOTE | ~2024-10-20 | CT_ITS ---
EXAMINATION: CT brain wo con DATE: 10/22/2024 11:13 INDICATION: Confusion TECHNIQUE: Computed tomography (CT) of the head was performed without intravenous contrast. Sagittal and coronal reconstructions were performed. The mA was adjusted according to patient size. Iterative reconstruction technique was employed. The dose-length product was 605.33 mGy-cm. COMPARISON: None FINDINGS: No acute intracranial hemorrhage, acute infarction or abnormal extra axial fluid collection. There is moderate to severe scattered white matter hypoattenuation consistent with chronic small vessel ische vikas disease. Symmetric prominence of the sulci consistent with mild age-appropriate diffuse cerebral volume loss. Ventricles are normal and symmetric. No mass/mass effect. The orbits, paranasal sinuses and mastoid air cells are normal. IMPRESSION: 1. No acute intracranial process. 2. Age-related changes including mild diffuse volume loss and moderate to severe scattered white hanny er hypoattenuation consistent with chronic small vessel ischemic disease. Reviewed, dictated and finalized at location A. MOTIVE ACCESSORY INSTALLER IMPRESSION: 1. No acute intracranial process. 2. Age-related changes including mild diffuse volume loss and moderate to sever e scattered white matter hypoattenuation consistent with chronic small vessel i schemic disease.
--- NOTE | ~2024-10-20 | CT_ITS ---
EXAMINATION: CT abdomen pelvis wo con DATE: 10/20/2024 14:29 INDICATION: Diarrhea. TECHNIQUE: Computed tomography (CT) of the abdomen and pelvis was performed without intravenous contr ast. Automated exposure control and iterative reconstruction technique were employed. The dose-length product was 484.49 mGy-cm. COMPARISON: CT abdomen 06/18/2004, chest CT 10/12/2024 FINDINGS: The visualized portions of lung bases demonstrate mild atelectasis. There are new centrilob ular nodules and groundglass opacities in basilar right lower lobe, consistent with mild pneumonia. N o pleural effusion. The heart size is normal. There are coronary artery calcifications. No pericardia l effusion. There is a small sliding hiatal hernia. There are changes of cholecystectomy. The liver, spleen, pancreas, adrenal glands, and kidneys are normal. There is no urolithiasis. There are no dila chandu loops of bowel. The appendix is normal. There is calcified atherosclerosis of the aorta and many of the other arteries. There are no pathologically enlarged lymph nodes. There is no free intraperito meng fluid. There is severe thoracic spondylosis and moderate lumbar spondylosis. There is a chronic compression fracture of L1. IMPRESSION: 1. Mild right lower lobe pneumonia. Reviewed, dictated and finalized at location B. SIT OPERATOR
--- NOTE | ~2024-10-20 | XR_ITS ---
EXAMINATION: XR chest 2V DATE: 10/20/2024 14:35 INDICATION: Wheezing. TECHNIQUE: Frontal and lateral views of the chest were obtained. COMPARISON: Chest 2 view 04/06/2023, CT abdomen and pelvis 10/20/2024 FINDINGS: There is mild atelectasis in lingula. No pleural effusion or pneumothorax. The heart size i s normal. Surgical clips in the right upper quadrant are likely from cholecystectomy. There is mild c hronic anterior wedging of multiple mid thoracic vertebral bodies. IMPRESSION: 1. Mild atelectasis in lingula. Reviewed, dictated and finalized at location B. ADMINISTRATIVE TECH
--- NOTE | 2024-10-20 14:06 | ED_ITS ---
HPI - Nausea/Vomiting/Diarrhea General Chief complaint: Nausea/Vomiting/Diarrhea <Gail Freed, PERSONAL INJURY LEGAL ASSISTANT - Last Filed: 10/20/24 14:08> Stated complaint: diarrhea <Gail Freed, PERSONAL INJURY LEGAL ASSISTANT - Last Filed: 10/20/24 14:08> Time Seen by Provider: 10/20/24 16:58 <Gail Freed, PERSONAL INJURY LEGAL ASSISTANT - Last Filed: 10/20/24 14:08> Focused HPI: Patient is a 69-year-old female who presents to the ER with 2 week history of diarrhea and black tarry stools. She reports she had a ?virus right after [place] and her primary care provider put her on antibiotics. Patient reports her diarrhea ?got worse after she recovered from a virus. She denies any abdominal pain, nausea, vomiting. Patient endorses decreased p.o. intake. She reports this morning she had a black tardy stool, but the color of her stool has now turned back to ?brown. Patient denies any use of blood thinners. She endorses a history COPD and high blood pressure. GENERAL: Well-appearing, well-nourished, and in no acute distress. HEAD: Normocephalic, atraumatic. CHEST: Wheezing lower bases upon auscultation. ?No respiratory distress. HEART: Regular rate and rhythm.? NEURO: ?Alert and oriented x3. Patient screened in triage and initial orders placed.? ?Additional care and disposition to be based upon?diagnostic testing and treatment. <Gail Freed, PERSONAL INJURY LEGAL ASSISTANT - Last Filed: 10/20/24 14:08> Focused HPI: Patient is a 69-year-old female who presents to the ER with 2 week history of diarrhea and black tarry stools. She reports she had a ?virus right after and her primary care provider put her on antibiotics. Patient reports her diarrhea ?got worse after she recovered from a virus. She denies any abdominal pain, nausea, vomiting. Patient endorses decreased p.o. intake. She reports this morning she had a black tardy stool, but the color of her stool has now turned back to ?brown. Patient denies any use of blood thinners. She endorses a history COPD and high blood pressure. GENERAL: Well-appearing, well-nourished, and in no acute distress. HEAD: Normocephalic, atraumatic. CHEST: Wheezing lower bases upon auscultation. ?No respiratory distress. HEART: Regular rate and rhythm.? NEURO: ?Alert and oriented x3. Patient screened in triage and initial orders placed.? ?Additional care and disposition to be based upon?diagnostic testing and treatment. <Kathya Evans PA-C - Last Filed: 10/21/24 02:11> Source: patient <Kathya Evans PA-C - Last Filed: 10/21/24 02:11> Mode of arrival: ambulatory <Kathya Evans PA-C - Last Filed: 10/21/24 02:11> Limitations: no limitations <Kathya Evans PA-C - Last Filed: 10/21/24 02:11> History of Present Illness HPI Narrative: Agree with above HPI. Patient is somewhat a poor historian. States she has had cough and SOB for past 1 month. Is bringing up phlegm. Denies CP. Reports having diarrhea intermittently over past 1-2 weeks. States she has been taking pepto bismol and has noticed dark stools. Denies fevers, ABD pain, N/V. <Kathya Evans PA-C - Last Filed: 10/21/24 02:11> Related Data Home medications: Home Medications ?Medication ?Instructions ?Recorded ?Confirmed ?Last Taken ?Type Alpha Brain 1 cap PO DAILY 05/25/24 10/20/24 10/19/24 History B Complex Plus Vitamin C 1 tab-cap PO DAILY 05/25/24 10/20/24 10/20/24 History budesonide 160 mcg-glycopyr 9 2 inh inhalation BID 09/26/24 10/20/24 10/20/24 History mcg-formot 4.8 mcg/actuation HFA inhaler (Breztri [email or web address].comphere) <Gail Freed APRN - Last Filed: 10/20/24 14:08> Allergies/Adverse reactions: Allergies Allergy/AdvReac Type Severity Reaction Status Date / Time morphine Allergy Unknown Itching Verified 07/20/24 12:53 poison ifeoma extract Allergy Unknown Rash Verified 07/20/24 12:53 doxycycline AdvReac Intermediate difficulty Verified 10/10/24 15:33 swallowing <Gail Freed APRN - Last Filed: 10/20/24 14:08> Review of Systems 2 Review of Systems: All systems reviewed & are unremarkable except as noted in HPI. <Kathya Evans PA-C - Last Filed: 10/21/24 02:11> All systems reviewed & are unremarkable except as noted in HPI and below < Kathya Evans PA-C - Last Filed: 10/21/24 02:11> [facility] Past Medical History Medical History: Medical History COPD (chronic obstructive pulmonary disease) moderate emphysema on CT of the chest 10/13/2023. diagnostic CT of the chest on 10/12/2024 with moderate emphysema. Functional memory problem (~2023) Osteopenia after menopause T-score -2.1 at the spine, -2.0 left hip, -1.7 right hip on 07/17/2022. Coronary artery calcification seen on CAT scan (10/13/23) calcifications noted on CT of the chest 10/13/2023. Asthma Chronic bilateral thoracic back pain (07/07/17) MRI of the thoracic spine on 07/10/2023 with degenerative changes. Spondylosis of the thoracic spine on chest x-ray 07/04/2023. At low risk for fall Chronic cough CT of the chest on 10/13/2023 with moderate Emphysema, coronary artery calcifications, severe spondylosis of cervical thoracic spine. Acute thoracic back pain (~02/2023) spondylosis of the thoracic spine on chest x-ray 04/06/2023. BMI 34.0-34.9,adult Obesity (BMI 30.0-34.9) Encounter for HCV screening test for low risk patient (10/10/22) screening by house calls advanced advanced practice nurse psychotherapist 10/10/2022 was negative for hepatitis C. UTI (urinary tract infection) BMI 32.0-32.9,adult Seasonal allergic rhinitis Chronic depression (~10/30/20) Breast cancer screening by mammogram mammogram normal on 07/17/2022. Colon cancer screening history of colon polyps 2002 with normal subsequent colonoscopies. Colonoscopy 12/09/2022 was normal with recheck in 10 years. Chronic left shoulder pain Lipoma of shoulder BMI 33.0-33.9,adult Chest pain Acute bronchitis chest x-ray on 10/14/2021 Was negative except for hyperinflation. chest x- ray 04/06/2023 with no active lung disease. Vitamin D insufficiency Level normal at 50 on 06/23/2023. Vitamin B12 deficiency anemia 940 on 11/19/2021. Level normal at 562 with hemoglobin 15.4 on 06/23/2023. Mixed hyperlipidemia total cholesterol 267, triglycerides 137, HDL 70, LDL 170 on 11/19/2021. Cholesterol 277, triglycerides 147, HDL excellent at 60, LDL 188 with ratio 4.6 on 06/23/2023. Cholesterol 236, triglycerides 154, HDL 54, LDL 140 on 01/21/2024. Cholesterol 161, triglycerides 289, HDL 62, LDL 86 on 03/25/2024. Gastro-esophageal reflux disease without esophagitis Essential (primary) hypertension Chronic bilateral low back pain with bilateral sciatica Chronic constipation Moderate persistent asthma, uncomplicated PFT on 07/31/2023 with moderate to severe obstructive defect with response to bronchodilator therapy. Acute sinusitis, unspecified <Gail Freed, PERSONAL INJURY LEGAL ASSISTANT - Last Filed: 10/20/24 14:08> Surgical History Surgical History: Surgical History H/O: hysterectomy History of cholecystectomy <Gail Freed APRN - Last Filed: 10/20/24 14:08> Family History Family History: Family History Mother Patient's mother is , Onset Age: 79 Father Acute myocardial infarction, Onset Age: 58 Sibling Acute myocardial infarction, Onset Age: 75 Grandparent Family history of malignant neoplasm Family history of malignant neoplasm of breast <Gail Freed APRN - Last Filed: 10/20/24 14:08> Social History Social History: Social History Smoking packs per day: 2 Smoking cigarettes per day: 40.0 Years smoked: 30 Smoking pack-years: 60.00 Smoking status: Former smoker Tobacco type: cigarettes Alcohol intake: never Substance use: never Substance use type: does not use Do You Feel Safe in your Home?: Yes Lack of Transportation: No Lack of Food: Never True Current Housing: I Have Housing Concerned About Future Housing: No Difficulty Paying Gas/Electric Bills: No Difficulty Paying for Meds: No Currently Unemployed: No Education: High School Diploma/GED Difficulty w/ Childcare or Family Care: No Living arrangements: with family Occupation/Education: retired Gender identity (if verbalized by the patient): Female Spiritual care concerns: No <Gail Freed APRN - Last Filed: 10/20/24 14:08> Exam 2 Narrative: GENERAL: Elderly but well appearing, obese with BMI of 32.3, non-toxic, in no acute distress. HEAD: Normocephalic, atraumatic. RESPIRATORY: Airway patent, respirations nonlabored. Frequent coughing on exam. Diffuse expiratory wheezing bilaterally, rhonchi in right middle to lower lung zones. No tachypnea or distress. CARDIOVASCULAR: Regular rate and rhythm without murmurs, rubs, or gallops. ABDOMINAL: Soft, no tenderness throughout abdomen. Nondistended. Normoactive BS. MUSCULOSKELETAL: Moves all extremities. No gross deformities. No edema or calf tenderness. SKIN: Warm, dry, normal color. NEURO: A&O X3. Speech clear. Cranial nerves II-XII grossly intact. Steady gait. No ataxic movements. PSYCHIATRIC: Appropriate mood and affect. Normal interaction. <Kathya Evans PA-C - Last Filed: 10/21/24 02:11> Course DIRECTOR OF ADVERTISING SALES/PA Physician Supervision For this patient encounter, I reviewed the DIRECTOR OF ADVERTISING SALES or PA documentation, treatment plan, and medical decision making and had [id number] time with this patient. I performed all aspects of the MDM as documented. <Anny Kearns MD - Last Filed: 10/21/24 06:11> Vital Signs Vital signs: Vital Signs Temperature 97.5 F L 10/20/24 13:59 Pulse Rate 106 H 10/20/24 13:59 Respiratory Rate 20 10/20/24 13:59 Blood Pressure 154/90 H 10/20/24 13:59 Pulse Oximetry 97 10/20/24 13:59 Oxygen Delivery Room Air 10/20/24 13:59 Temperature 97.9 F 10/21/24 05:36 Pulse Rate 106 H 10/21/24 05:36 Respiratory Rate 16 10/21/24 05:36 Blood Pressure 143/80 H 10/21/24 05:36 Pulse Oximetry 92 10/21/24 05:36 Oxygen Delivery Room Air 10/20/24 22:12 <Gail Freed APRN - Last Filed: 10/20/24 14:08> Vital Signs Temperature 97.5 F L 10/20/24 13:59 Pulse Rate 106 H 10/20/24 13:59 Respiratory Rate 20 10/20/24 13:59 Blood Pressure 154/90 H 10/20/24 13:59 Pulse Oximetry 97 10/20/24 13:59 Oxygen Delivery Room Air 10/20/24 13:59 Temperature 97.9 F 10/21/24 05:36 Pulse Rate 106 H 10/21/24 05:36 Respiratory Rate 16 10/21/24 05:36 Blood Pressure 143/80 H 10/21/24 05:36 Pulse Oximetry 92 10/21/24 05:36 Oxygen Delivery Room Air 10/20/24 22:12 <Kathya Evans PA-C - Last Filed: 10/21/24 02:11> Vital Signs Temperature 97.5 F L 10/20/24 13:59 Pulse Rate 106 H 10/20/24 13:59 Respiratory Rate 20 10/20/24 13:59 Blood Pressure 154/90 H 10/20/24 13:59 Pulse Oximetry 97 10/20/24 13:59 Oxygen Delivery Room Air 10/20/24 13:59 Temperature 97.9 F 10/21/24 05:36 Pulse Rate 106 H 10/21/24 05:36 Respiratory Rate 16 10/21/24 05:36 Blood Pressure 143/80 H 10/21/24 05:36 Pulse Oximetry 92 10/21/24 05:36 Oxygen Delivery Room Air 10/20/24 22:12 <Anny Kearns MD - Last Filed: 10/21/24 06:11> MDM - Nausea/Vomiting/Diarrhea MDM Narrative Medical decision making narrative: Patient presented to ED with multiple complaints, 1 month history of cough, upper respiratory symptoms, 1-2 week history of diarrhea. Patient was initially tachycardic upon arrival. This was resolved by the time of my evaluation. She is afebrile here. Cbc is unremarkable. Normal white blood cell count. H&H is stable. CMP with potassium 3.2. Oral replacement given. Otherwise stable electrolytes. Stable kidney function. UA with possible infection, 2+ leuk esterase, 6-10 white blood cell count. Moderate squamous cells noted. Sent for culture. Initial chest x-ray is clear. CT scan of abdomen/pelvis was obtained and without intra-abdominal findings. Does show a right lower lobe pneumonia. Given prolonged nature of symptoms with underlying asthma/COPD, will treat for pneumonia with antibiotics. Patient's influenza testing did result positive. Consistent with clinical picture. Patient given hour long nebulizer in the ED in addition to K replacement and dose of steroids. Patient was ambulated throughout the ED and unfortunately did drop her oxygen saturation down to 87%. No previous oxygen requirement. Given this, will admit for further evaluation and management of influenza, pneumonia, continue nebulizer treatments. Blood cultures were obtained. Will start antibiotics for community-acquired pneumonia. Discussed case with Hawk Salmeron NP hospitalist, accepted patient for admission. Recommended to start tamiflu. Patient and family in agreement with plan and need for admission. <Kathya Evans PA-C - Last Filed: 10/21/24 02:11> Medical Records Attestation: I reviewed the patient's medical records. <Kathya Evans PA-C - Last Filed: 10/21/24 02:11> Lab Data Attestation: I reviewed the patient's lab results. <Kathya Evans PA-C - Last Filed: 10/21/24 02:11> Result diagrams: 10/20/24 15:15 10/20/24 15:15 <Gail Freed APRN - Last Filed: 10/20/24 14:08> Labs: Lab Results 10/20/24 Range/Units 15:15 WBC 6.9 (4.5-10.0) K/mm3 RBC 5.54 H (4.2-5.4) M/mm3 Hgb 16.1 H (12.0-15.0) g/dL Hct 48.0 H (37.0-47.0) % MCV 86.6 (80-100) fl MCH 29.1 (26-34) pg MCHC 33.5 (32-36) g/dl RDW 13.2 (11.5-14.5) % Plt Count 199 (150-375) k/mm3 MPV 11.7 H (7.4-10.4) fl Immature Gran % (Auto) 0.3 (0-0.5) % Neut % (Auto) 51.1 (45.5-73.1) % Lymph % (Auto) 40.1 (18.3-44.2) % Hood % (Auto) 6.9 (2.6-8.5) % Eos % (Auto) 1.2 (0-4.4) % Baso % (Auto) 0.4 (0.2-1.2) % Lymph # (Auto) 2.77 (0.9-3.2) K/mm3 Hood # (Auto) 0.5 (0.1-0.6) K/mm3 Eos # (Auto) 0.1 (0-0.3) K/mm3 Baso # (Auto) 0.0 (0.0-0.1) K/mm3 Abs Immat Gran (auto) 0.02 (0.00-0.031) K/mm3 Absolute Neuts (auto) 3.5 (1.3-6.7) K/mm3 Absolute Nucleated RBC 0.000 (0.0-0.012) K/mm3 Nucleated RBC % 0.0 (0.0-0.2) % Sodium 136 L (137-145) mmol/L Potassium 3.2 L (3.4-5.0) mmol/L Chloride 96 L (98-107) mmol/L Carbon Dioxide 30 (22-30) mmol/L Anion Gap 10 (4-12) mmol/L BUN 3 L (7-17) mg/dL Creatinine 0.69 L (0.7-1.0) mg/dL Estim Creat Clear Calc 61 ml/min Estimated GFR > 60 (59 - ) Glucose 110 (65-110) mg/dL Calcium 9.0 (8.4-10.2) mg/dL Magnesium 2.1 (1.6-2.3) mg/dL Total Bilirubin 0.6 (0.2-1.3) mg/dL AST 35 (14-36) U/L ALT 25 (6-35) U/L Alkaline Phosphatase 109 (38-126) U/L Total Protein 8.0 (6.3-8.2) g/dL Albumin 4.2 (3.5-5.1) g/dL Lipase 113 (23-300) U/L Urine Color Yellow (Yellow) Urine Appearance Clear (Clear) Urine pH 6.5 (5.0-9.0) Ur Specific Zephyr 1.003 (1.001-1.035) Urine Protein Negative (Negative) mg/dL Urine Glucose (UA) Negative (Negative) mg/dL Urine Ketones Negative (Negative) mg/dL Ur Blood (Man) 1+ H (Negative) Urine Nitrate Negative (Negative) Urine Bilirubin Negative (Negative) Urine Urobilinogen 0.2 (<2.0) mg/dL Add Ur Microanalysis Reviewed Leukocyte Esterase Rfl 2+ H (Negative) HAILY/UL Urine RBC 0-2 (0-2) /hpf Urine WBC 6-10 H (0-3) /hpf Ur Squamous Epith Cells Moderate (Few) /hpf Ur Transition Epith Cell Moderate H (None Seen) /hpf Urine Bacteria None seen /hpf Urine Casts 0-2 Influenza A (RT-PCR) Positive A (Negative) Influenza B (RT-PCR) Negative (Negative) RSV (RT-PCR) Negative (Negative) SARS-CoV-2 RNA (RT-PCR) Negative (Negative) <Gail Freed, PERSONAL INJURY LEGAL ASSISTANT - Last Filed: 10/20/24 14:08> Lab Results 10/20/24 Range/Units 15:15 WBC 6.9 (4.5-10.0) K/mm3 RBC 5.54 H (4.2-5.4) M/mm3 Hgb 16.1 H (12.0-15.0) g/dL Hct 48.0 H (37.0-47.0) % MCV 86.6 (80-100) fl MCH 29.1 (26-34) pg MCHC 33.5 (32-36) g/dl RDW 13.2 (11.5-14.5) % Plt Count 199 (150-375) k/mm3 MPV 11.7 H (7.4-10.4) fl Immature Gran % (Auto) 0.3 (0-0.5) % Neut % (Auto) 51.1 (45.5-73.1) % Lymph % (Auto) 40.1 (18.3-44.2) % Hood % (Auto) 6.9 (2.6-8.5) % Eos % (Auto) 1.2 (0-4.4) % Baso % (Auto) 0.4 (0.2-1.2) % Lymph # (Auto) 2.77 (0.9-3.2) K/mm3 Hood # (Auto) 0.5 (0.1-0.6) K/mm3 Eos # (Auto) 0.1 (0-0.3) K/mm3 Baso # (Auto) 0.0 (0.0-0.1) K/mm3 Abs Immat Gran (auto) 0.02 (0.00-0.031) K/mm3 Absolute Neuts (auto) 3.5 (1.3-6.7) K/mm3 Absolute Nucleated RBC 0.000 (0.0-0.012) K/mm3 Nucleated RBC % 0.0 (0.0-0.2) % Sodium 136 L (137-145) mmol/L Potassium 3.2 L (3.4-5.0) mmol/L Chloride 96 L (98-107) mmol/L Carbon Dioxide 30 (22-30) mmol/L Anion Gap 10 (4-12) mmol/L BUN 3 L (7-17) mg/dL Creatinine 0.69 L (0.7-1.0) mg/dL Estim Creat Clear Calc 61 ml/min Estimated GFR > 60 (59 - ) Glucose 110 (65-110) mg/dL Calcium 9.0 (8.4-10.2) mg/dL Magnesium 2.1 (1.6-2.3) mg/dL Total Bilirubin 0.6 (0.2-1.3) mg/dL AST 35 (14-36) U/L ALT 25 (6-35) U/L Alkaline Phosphatase 109 (38-126) U/L Total Protein 8.0 (6.3-8.2) g/dL Albumin 4.2 (3.5-5.1) g/dL Lipase 113 (23-300) U/L Urine Color Yellow (Yellow) Urine Appearance Clear (Clear) Urine pH 6.5 (5.0-9.0) Ur Specific Zeph[place] 1.003 (1.001-1.035) Urine Protein Negative (Negative) mg/dL Urine Glucose (UA) Negative (Negative) mg/dL Urine Ketones Negative (Negative) mg/dL Ur Blood (Man) 1+ H (Negative) Urine Nitrate Negative (Negative) Urine Bilirubin Negative (Negative) Urine Urobilinogen 0.2 (<2.0) mg/dL Add Ur Microanalysis Reviewed Leukocyte Esterase Rfl 2+ H (Negative) HAILY/UL Urine RBC 0-2 (0-2) /hpf Urine WBC 6-10 H (0-3) /hpf Ur Squamous Epith Cells Moderate (Few) /hpf Ur Transition Epith Cell Moderate H (None Seen) /hpf Urine Bacteria None seen /hpf Urine Casts 0-2 Influenza A (RT-PCR) Positive A (Negative) Influenza B (RT-PCR) Negative (Negative) RSV (RT-PCR) Negative (Negative) SARS-CoV-2 RNA (RT-PCR) Negative (Negative) <Kathya Evans PA-C - Last Filed: 10/21/24 02:11> Lab Results 10/20/24 Range/Units 15:15 WBC 6.9 (4.5-10.0) K/mm3 RBC 5.54 H (4.2-5.4) M/mm3 Hgb 16.1 H (12.0-15.0) g/dL Hct 48.0 H (37.0-47.0) % MCV 86.6 (80-100) fl MCH 29.1 (26-34) pg MCHC 33.5 (32-36) g/dl RDW 13.2 (11.5-14.5) % Plt Count 199 (150-375) k/mm3 MPV 11.7 H (7.4-10.4) fl Immature Gran % (Auto) 0.3 (0-0.5) % Neut % (Auto) 51.1 (45.5-73.1) % Lymph % (Auto) 40.1 (18.3-44.2) % Hood % (Auto) 6.9 (2.6-8.5) % Eos % (Auto) 1.2 (0-4.4) % Baso % (Auto) 0.4 (0.2-1.2) % Lymph # (Auto) 2.77 (0.9-3.2) K/mm3 Hood # (Auto) 0.5 (0.1-0.6) K/mm3 Eos # (Auto) 0.1 (0-0.3) K/mm3 Baso # (Auto) 0.0 (0.0-0.1) K/mm3 Abs Immat Gran (auto) 0.02 (0.00-0.031) K/mm3 Absolute Neuts (auto) 3.5 (1.3-6.7) K/mm3 Absolute Nucleated RBC 0.000 (0.0-0.012) K/mm3 Nucleated RBC % 0.0 (0.0-0.2) % Sodium 136 L (137-145) mmol/L Potassium 3.2 L (3.4-5.0) mmol/L Chloride 96 L (98-107) mmol/L Carbon Dioxide 30 (22-30) mmol/L Anion Gap 10 (4-12) mmol/L BUN 3 L (7-17) mg/dL Creatinine 0.69 L (0.7-1.0) mg/dL Estim Creat Clear Calc 61 ml/min Estimated GFR > 60 (59 - ) Glucose 110 (65-110) mg/dL Calcium 9.0 (8.4-10.2) mg/dL Magnesium 2.1 (1.6-2.3) mg/dL Total Bilirubin 0.6 (0.2-1.3) mg/dL AST 35 (14-36) U/L ALT 25 (6-35) U/L Alkaline Phosphatase 109 (38-126) U/L Total Protein 8.0 (6.3-8.2) g/dL Albumin 4.2 (3.5-5.1) g/dL Lipase 113 (23-300) U/L Urine Color Yellow (Yellow) Urine Appearance Clear (Clear) Urine pH 6.5 (5.0-9.0) Ur Specific Zephyr 1.003 (1.001-1.035) Urine Protein Negative (Negative) mg/dL Urine Glucose (UA) Negative (Negative) mg/dL Urine Ketones Negative (Negative) mg/dL Ur Blood (Man) 1+ H (Negative) Urine Nitrate Negative (Negative) Urine Bilirubin Negative (Negative) Urine Urobilinogen 0.2 (<2.0) mg/dL Add Ur Microanalysis Reviewed Leukocyte Esterase Rfl 2+ H (Negative) HAILY/UL Urine RBC 0-2 (0-2) /hpf Urine WBC 6-10 H (0-3) /hpf Ur Squamous Epith Cells Moderate (Few) /hpf Ur Transition Epith Cell Moderate H (None Seen) /hpf Urine Bacteria None seen /hpf Urine Casts 0-2 Influenza A (RT-PCR) Positive A (Negative) Influenza B (RT-PCR) Negative (Negative) RSV (RT-PCR) Negative (Negative) SARS-CoV-2 RNA (RT-PCR) Negative (Negative) <Anny Kearns MD - Last Filed: 10/21/24 06:11> Imaging Data Attestation: I personally reviewed and interpreted this imaging study as follows: < Kathya Evans PA-C - Last Filed: 10/21/24 02:11> Radiologist's impression: ITS Impressions Abdomen/Pelvis CT 10/20/24 14:31 IMPRESSION: 1. Mild right lower lobe pneumonia. Chest X-Ray 10/20/24 14:35 IMPRESSION: 1. Mild atelectasis in lingula. <Kathya Evans PA-C - Last Filed: 10/21/24 02:11> Discharge Plan Discharge Clinical Impression: Influenza A, Acute hypoxic respiratory failure, Abnormal urinalysis Right lower lobe pneumonia Qualifiers: Pneumonia type: due to unspecified organism Qualified Code(s): J18.9 - Pneumonia, unspecified organism Asthma exacerbation Qualifiers: Asthma severity: unspecified severity Asthma persistence: unspecified Qualified Code(s): J45.901 - Unspecified asthma with (acute) exacerbation Diarrhea Qualifiers: Diarrhea type: unspecified type Qualified Code(s): R19.7 - Diarrhea, unspecified <Gail Freed APRN - Last Filed: 10/20/24 14:08> Patient Disposition: Still a Patient <Gail Freed APRN - Last Filed: 10/20/24 14:08> Condition: Stable <Gail Freed APRN - Last Filed: 10/20/24 14:08>
[2024-10-20] MEDS: IPRATROPIUM 0.5 MG/ALBUTEROL SULFATE 2.5 MG AMPUL.NEB 3 ML INHALATION (14:53)
[2024-10-20 15:23] LABS: Basophils Percent Auto 0.4 % (0.2-1.2); Eosinophils Absolute Auto 0.1 K/mm3 (0-0.3); Eosinophils Percent Auto 1.2 % (0-4.4); Hemoglobin 16.1 g/dL (12.0-15.0); Immature Granulocyte Absolute 0.02 K/mm3 (0.00-0.031); Immature Granulocyte Percent A 0.3 % (0-0.5); Lymphocytes Absolute Auto 2.77 K/mm3 (0.9-3.2); Lymphocytes Percent Auto 40.1 % (18.3-44.2); Mean Corpuscular HGB Conc 33.5 g/dl (32-36); Mean Corpuscular Hemoglobin 29.1 pg (26-34); Mean Corpuscular Volume 86.6 fl (80-100); Mean Platelet Volume 11.7 fl (7.4-10.4); Monocytes Absolute Auto 0.5 K/mm3 (0.1-0.6); Monocytes Percent Auto 6.9 % (2.6-8.5); Neutrophils Absolute Auto 3.5 K/mm3 (1.3-6.7); Neutrophils Percent Auto 51.1 % (45.5-73.1); Platelet Count Result 199 k/mm3 (150-375); Red Blood Count 5.54 M/mm3 (4.2-5.4); Red Cell Distribution Width 13.2 % (11.5-14.5); White Blood Count 6.9 K/mm3 (4.5-10.0)
[2024-10-20 15:34] LABS: Alanine Aminotransferase 25 U/L (6-35); Albumin Level 4.2 g/dL (3.5-5.1); Alkaline Phosphatase 109 U/L (38-126); Anion Gap 10 mmol/L (4-12); Aspartate Amino Transferase 35 U/L (14-36); Bilirubin,Total 0.6 mg/dL (0.2-1.3); Blood Urea Nitrogen 3 mg/dL (7-17); Carbon Dioxide 30 mmol/L (22-30); Chloride 96 mmol/L (98-107); Estimated CRCL calculation 61 ml/min; Estimated Glomerular Filt Rate > 60; Glucose 110 mg/dL (65-110); Lipase 113 U/L (23-300); Potassium 3.2 mmol/L (3.4-5.0); Sodium 136 mmol/L (137-145)
[2024-10-20 15:48] LABS: Add Urine Microscopic? YES; Appearance Urine Clear (Clear); Bacteria Urine None Seen /hpf; Bilirubin Urine Negative (Negative); Blood Urine 1+ (Negative); Color Urine Yellow (Yellow); Glucose Urine UA Negative (Negative); Ketones Urine Negative (Negative); Leukocyte Esterase Ur 2+ LEU/UL (Negative); Need Manual Microscopic Reviewed; Nitrate Urine Negative (Negative); Non Pathogenic Casts 0-2; Protein Urine Negative (Negative); RBC Urine 0-2 /hpf (0-2); Specific Grav Ur 1.003 (1.001-1.035); Squamous Epithelial Cell Urine Moderate /hpf (Few); Urobilinogen Urine 0.2 mg/dL (<2.0); pH Urine 6.5 (5.0-9.0)
[2024-10-20 15:50] LABS: Transitional Epi Cells Urine Moderate /hpf (None Seen)
[2024-10-20 16:00] LABS: Influenza A QL RT-PCR Positive (Negative); Influenza B QL RT-PCR Negative (Negative); RSV RNA, RT-PCR Negative (Negative); SARS-CoV-2 RNA PCR Negative (Negative)
[2024-10-20] MEDS: SODIUM CHLORIDE 0.9% IV 1,000 ML 999 ML IV CONT (16:25)
[2024-10-20] MEDS: LEVALBUTEROL NEB 1.25 MG/3 ML 2.5 MG INHALATION (17:50)
[2024-10-20] MEDS: IPRATROPIUM BR 0.02% INH SOLN 0.5 MG/2.5 ML VIAL 1.5 MG INHALATION (17:51)
[2024-10-20 19:03] LABS: Magnesium 2.1 mg/dL (1.6-2.3)
[2024-10-20] MEDS: methylPREDNISolone SOD SUCC 125 MG VIAL IV PUSH (19:40)
[2024-10-20] MEDS: POTASSIUM CHLORIDE 20 MEQ ER TABLET 40 MEQ PO (19:40)
--- NOTE | 2024-10-20 19:47 | PC.NURSE ---
pt walking pulse ox did drop to 88% at the 20ft amadeo. Pt took 2 minutes of sitting back on the stretcher before bouncing back up into the 90% range.
[2024-10-20] MEDS: AZITHROMYCIN 500 MG/NS 250 ML 500 MG/250 ML BAG 250 MG IVPB (21:23)
[2024-10-20] MEDS: OSELTAMIVIR PHOSPHATE 75 MG CAPSULE PO (21:24)
--- NOTE | 2024-10-20 22:12 | ADMGEN ---
This patient, Shefali Wyman, was admitted to Medical Room 241-01. Patient/family oriented to hospital policies and general routines including ID bracelet, bed and alarms, visiting hours, pain management, procedures, bathroom and other care routines, personal items, smoking policy, room service/diet, and visiting hours. Information on how to activate the Rapid Response Team has been discussed. Patient/Family are encouraged to report perceived risks to care and to ask questions if they do not understand what they are told or what they should do.
[2024-10-21] VITALS (17 sets, daily range): BP systolic 139–150; BP diastolic 63–80; PULSE 78–115; RESP 16–20; TEMP 36.3–36.6; O2SAT 92–93
[2024-10-21 00:32] LABS: Glucose Point of Care 179 mg/dl (65-105)
[2024-10-21] MEDS: IPRATROPIUM 0.5 MG/ALBUTEROL SULFATE 2.5 MG AMPUL.NEB 3 ML INHALATION ×4 (03:17→19:46)
--- OUTSIDE RECORDS SUMMARY | 2024-10-21 05:27 | XMS_ITS | Data Portability ---
Author Organization [facility] Address [address] [place] [place] [address] [place] [address] Care Team Providers Care Radio Communications Superintendent Name Role Phone ROSENDA LYNN Primary Care Provider Assessment Encounter Date Assessment Date Assessment LastModified by Organization Details LastModified Time 05/01/2022 05/01/2022 Annual gynecological exam performed. Patient will come back in a year unless there are new symptoms. Not available 05/01/2022 14:43:55 05/05/2023 05/05/2023 Annual gynecological exam performed. Patient will come back in a year unless there are new symptoms. Not available 05/05/2023 12:18:34 Plan of Treatment Reminders Order Date Submit Date Provider Last Modified By Organization Details Last Modified Time Details Appointments None recorded. Lab None recorded. Referral gastroenter ologist referral - Screening Colonoscopy Please refer this patient to Gastroenter ology in the patients insurance network.Att ached are the patients demographic s and most recent office visit notes.If you have any questions, please contact me at [phone].Thank you,Monika, Referral's 2021 022 sheila [email or web address] [facility], [address], [address], [place], [address], 13:13:47 Procedures None recorded. Surgeries None recorded. Imaging DEXA, axial skeleton + vertebral fracture assessment 2021 022 oss8 [facility], [address], [address], [place], [address], 2 14:43:22 MAMMO, screening, bilateral [address], [address], [address], [place], [address], 3 12:36:50 DEXA, axial skeleton + vertebral fracture assessment [address], [address], [address], [place], [address], 4 10:32:00 Medication Orders None recorded. Patient TargetsNo targets recorded. Patient InstructionsNo instructions recorded. Reason for Referral Groutman Referral for Screening for malignant neoplasm of colon This patient has an HMO insurance and our office can not refer her to specialists. Screening ColonoscopyPlease refer this patient to Gastroenterology in the patients insurance network.Attached are the patients demographics and most recent office visit notes.If you have any questions, please contact me at [phone].Thank you,Rosario Frank's Referring Physician: Riana Colon, ELECTRICAL AND INSTRUMENT MECHANIC, Encounter Date: 05/01/2022 Results Created Date Observation Date Name Description Value Unit Range Abnormal Flag Note LastModifiedBy Organization Detail LastModifiedTime 07/18/20 22 07/17/2022 MAMMO , scree vikas, bilat eral No observ ation record ed. [address], [place], [address], 07/23/2022 21:43:53 Result Notes None recorded. Problems Name Problem SNOMED Code Status Onset Date Resolution Date Notes Provider Name and Address Organization Details Recorded Time Screenin g for malignan t neoplasm of rectum Completed 201804/18/2022 Encounter for screening for malignant neoplasm of rectum;Pr actice ID: 0001 Mari Angelo [facility] 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 2 13:05:[address] Concept Completed 201704/18/2022 Encntr for general adult medical exam w/o abnormal findings; Practice ID: 0001 Mari betancourt [facility] 2 13:05:29 Vaginola bial hernia Completed 201604/18/2022 Other specified noninflam matory disorders of vagina;Pr actice ID: 0001 Mari betancourt [facility] 2 13:05:29 Elevated blood-pr essure reading without diagnosi s of hyperten ruma [id number] Completed 201604/18/2022 Elevated blood-pre ssure reading, w/o diagnosis of htn;Pract ice ID: 0001 Mari betancourt [facility] 2 13:05:29 Acute vaginiti s [id number] Completed 201604/18/2022 Acute vaginitis ;Practice ID: 0001 Mari betancourt [facility] 2 13:05:29 Screenin g for malignan t neoplasm of cervix Completed 201104/18/2022 Pap Smear;Pra ctice ID: 0001 Mari betancourt [facility] 2 13:05:29 Adult health examinat ion Completed 201204/18/2022 Routine general medical examinati on at a health care facility; Practice ID: 0001 Mari betancourt [facility] 2 13:05:29 Speciali zed medical examinat ion Completed 201204/18/2022 Routine gynecolog ical examinati on;Practi ce ID: 0001 Mari betancourt [facility] 2 13:05:29 Vaginiti s and vulvovag initis Completed 201404/18/2022 Vaginitis and vulvovagi nitis, unspecifi ed;Practi ce ID: 0001 Mari Angelo [facility] 2 13:05:29 Menopaus al symptom [id number] Completed 201404/18/2022 Menopausa l or female climacter ic states;Pr actice ID: 0001 Mari Angelo [facility] 2 13:05:29 Spasm [id number] Completed 201404/18/2022 Spasm of muscle;Pr actice ID: 0001 Mari Angelo [facility] 2 13:05:29 Carbuncl e of groin [id number] Completed 201504/18/2022 Carbuncle of groin;Pra ctice ID: 0001 Mari Angelo [facility] 2 13:05:[address] Concept Completed 201504/18/2022 Well woman check w/ abnormal finding;R ecorded Elsewhere : No Locati on: [facility] So urce: EHR Chron ic: N Practic e ID: 0001 Bill able Time: 01:00:00 PM Mari Angelo [facility] 2 13:05:29 Carbuncl e [id number] Completed 201504/18/2022 Carbuncle ;Recorded Elsewhere : No Locati on: [facility] So urce: EHR Chron ic: N Practic e ID: 0001 Bill able Time: 01:00:00 PM Mari Angelo [facility] 2 13:05:29 Screenin g for malignan t neoplasm of colon Completed 201004/18/2022 Special screening for malignant neoplasms , colon;Pra ctice ID: 0001 Mari Angelo [facility] 13:05:29 Problem Notes None recorded. Procedures Surgical History Date Name Laterality Status Provider Name and Address Organization Details Recorded Time 022 Date of Last Mammogram completed [facility] 05/05/2023 12:20:47 018 Date of Last Pap Smear completed [facility] 05/05/2023 12:20:01 016 Colonoscopy completed [facility] 05/01/2022 14:51:41 010 Colonoscopy completed Riana Colon [facility]- [address], [place], [address], [facility] 05/05/2023 12:42:59 009 [facility] 05/01/2022 14:51:25 008 [facility] 05/01/2022 14:51:14 Imaging Results Imaging Date Name Status LastModified by Organiz ation Details LastModified Time 07/17/2022 MAMMO, screening, bilateral completed [address], [place], [address], 07/23/2022 21:43:53 Procedure Notes None recorded. Medical Equipment None Reported. Allergies Allergen ID Allergen Name Allergen Category Reaction Reaction Severity Criticality Documentation Date Start Date Code Code System Note Provider Name and Address Organization Details Recorded Time 83031 morphine medicatio n Not available Not available Not available 09/14/2020 7052 RxNorm Comme nt: Locat [facility]: [facility]; Not Available [facility] 0 14:14:53 Medications Name Sig Start Date Stop Date Status Note LastModified by Organization Details LastModified Time cyclobenz aprine 10 mg tablet TAKE 1 TABLET BY MOUTH THREE TIMES DAILY NEEDED FOR MUSCLE SPASM 05/05 completed Not Available Not Available Not Available azithromy yosvany 250 mg tablet TAKE 2 TABLETS BY MOUTH FOR 1 DAY THEN TAKE 1 TABLET BY MOUTH DAILY FOR 4 DAYS 05/05 completed Not Available Not Available Not Available ibuprofen 800 mg tablet TAKE 1 TABLET BY MOUTH THREE TIMES DAILY NEEDED FOR PAIN active Not Available Not Available No t Available Claritin 10 mg tablet take 1 tablet by oral route every day 05/01 completed Prescrib ed Elsewher e: Yes [facility] odify By: maritza Maria ncounter DateTime : 04/13/20 01:30:00 PM Not Available Not Available Not Available prednison e 20 mg tablet TAKE 1 TABLET BY MOUTH DAILY. HOLD ALL NSAIDS WHILE TAKING PREDNISO NE 05/05 completed Not Available Not Available Not Available Diflucan 150 mg tablet take 1 tablet (150MG) by oral route once daily 11/16 completed Prescrib ed Elsewher e: No [facility]at [facility]: [facility] odify By: emmett colunga DateTime : 05/11/20 13 01:30:00 PM Not Available Not Available Not Available amlodipin e 5 mg tablet active Not Available Not Available Not Available triamcino lone acetonide 0.1 % topical cream APPLY TOPICALL Y TO THE AFFECTED AREA TWICE DAILY FOR POISON THEODORE 05/05 completed Not Available Not Available Not Available pantopraz ole 20 mg tablet,de layed release take 2 tablet by oral route every day 05/01 completed Prescrib ed Elsewher e: Yes [facility]oca [facility] odify By: maritza chaconunter DateTime : 04/13/20 19 01:30:00 PM Not Available Not Available Not Available Vitamin B-12 50 mcg tablet 05/05 completed Prescrib ed Elsewher e: Yes Loca [facility]ion: [facility] odify By: maritza chaconunter DateTime : 04/13/20 19 01:30:00 PM Not Available Not Available Not Available Metrogel Vaginal 0.75 % (37.5 mg/5 gram) insert 1 applicat orful by vaginal route every day at bedtime for 5 nights 06/24 completed Prescrib ed Elsewher e: No Locat ion: [facility] odify By: lani Smith r DateTime : 10/23/19 17 09:01:39 AM Not Available Not Available Not Available Prilosec 10 mg capsule,d elayed release take 2 capsule by oral route every day before a meal 04/13 completed Prescrib ed Elsewher e: Yes Loca tion: [facility] odify By: maritza Maria ncounter DateTime : 06/24/20 17 03:30:00 PM Not Available Not Available Not Available betametha sone valerate 0.1 % topical cream apply by topical route every day a thin layer to the affected area(s) 05/30 completed Prescrib ed Elsewher e: No Locat ion: [facility] odify By: talisha Chaney nter DateTime : 12/03/19 18 01:00:00 PM Not Available Not Available Not Available pantopraz ole 40 mg tablet,de layed release active Not Available Not Available Not Available Cipro 500 mg tablet take 1 tablet by oral route every 12 hours 10/21 completed Prescrib ed Elsewher e: No Locat ion: [facility] odify By: lani Smith r DateTime : 11/19/19 16 01:00:00 PM Not Available Not Available Not Available Neurontin 100 mg capsule take 1 capsule by oral route 3 times every day 11/19 completed Prescrib ed Elsewher e: No Locat ion: [facility] odify By: abeba Maria ncounter DateTime : 05/24/20 15 11:15:00 AM Not Available Not Available Not Available monteluka st 10 mg tablet active Not Available Not Available Not Available irbesarta n 150 mg tablet take 1 tablet by oral route every day 05/01 completed Prescrib ed Elsewher e: Yes Loca tion: [facility] odify By: maritza Maria ncounter DateTime : 04/13/20 19 01:30:00 PM Not Available Not Available Not Available levofloxa yosvany 500 mg tablet TAKE 1 TABLET BY MOUTH DAILY 05/05 completed Not Available Not Available Not Available Vitamin D2 1,250 mcg (50,000 unit) capsule take 1 capsule ([id number] ITS) by oral route every week 11/16 completed Prescrib ed Elsewher e: No Locat ion: [facility] odify By: emmett colunga DateTime : 06/07/20 13 03:47:17 PM Not Available Not Available Not Available cefdinir 300 mg capsule TAKE 1 CAPSULE BY MOUTH EVERY 12 HOURS 05/05 completed Not Available Not Available Not Available irbesarta n 300 mg tablet active Not Available Not Available Not Available Bactrim DS 800 mg-160 mg tablet take 1 tablet by oral route every 12 hours 11/19 completed Prescrib ed Elsewher e: No Locat ion: [facility] odify By: abeba bryan DateTime : 06/13/20 15 08:20:53 AM Not Available Not Available Not Available magnesium 200 mg tablet 05/05 completed Prescrib ed Elsewher e: Yes Loca tion: [facility] odify By: maritza bryan DateTime : 04/13/20 19 01:30:00 PM Not Available Not Available Not Available Singulair 4 mg oral granules in packet 10/21 completed Prescrib ed Elsewher e: Yes Loca tion: [facility] odify By: lani schuler DateTime : 05/11/20 13 01:30:00 PM Not Available Not Available Not Available duloxetin e 30 mg capsule,d elayed release active Not Available Not Available Not Available Acid Relief (cimetidi ne) 200 mg tablet take 1 tablet by oral route 2 times every day 30 minutes before meals 05/11 completed Prescrib ed Elsewher e: Yes Loca tion: [facility] odify By: nicolás chaconuntjaleel DateTime : 02/11/20 12 03:00:00 PM Not Available Not Available Not Available Symbicort 160 mcg-4.5 mcg/actua tion HFA aerosol inhaler inhale 2 puff by inhalati on route 2 times every day in the morning and evening 2018 active Prescrib rober Retana e: Yes Loca tion: [facility] odify By: maritza chaconunter DateTime : 04/13/20 01:30:00 PM Not Available Not Available Not Available ProChambe r USE FOUR TIMES DAILY WITH INHALER 05/05 completed Not Available Not Available Not Available sodium,po tassium,m ag sulfates 17.5 gram-3.13 gram-1.6 gram oral soln MIX AND DRINK DIRECTED 05/05 completed Not Available Not Available Not Available Diurex 162.5 mg-50 mg tablet Take by oral route. 05/05 completed Not Available Not Available Not Available vitamin B12 2,500 mcg-folic acid 400 mcg disintegr ating tablet Take by oral route. 05/05 completed Not Available Not Available Not Available vitamin D3 1,250 mcg (50,000 unit)-vit mortensen K2 200 mcg capsule Take by oral route. active Not Available Not Available No t Available Vitals Date Recorded Body height Body mass index (BMI) Body weight Provider Name and Address Organization Details Last Updated DateTime 05/01/2022 157.48 cm 32.4 kg/m2 98955.85 g Mari Angelo [facility] 05/01/2022 14:44:53 Date Recorded Systolic blood pressure Diastolic blood pressure Provider Name and Address Organization Details Last Updated DateTime 05/01/2022 132 mm[Hg] 80 mm[Hg] Riana Colon, [facility]- [address], [place], [address], [facility] 05/01/2022 15:09:23 Date Recorded Body height Body mass index (BMI) Body weight Systolic blood pressure Diastolic blood pressure Provider Name and Address Organization Details Last Updated DateTime 05/05/2023 157.48 cm 33.8 kg/m2 28557.59 g 119 mm[Hg] 75 mm[Hg] Rosette Matute [facility] 12:18:55 Social History Question Answer Notes LastModified by Organizat ion Details LastModified Time Tobacco Smoking Status Former Smoker Mari Angelo [facility] 05/01/2022 14:50:46 What Is Your Level Of Alcohol Consumption? Occasional Information not available 05/01/2022 Are You Blind Or Do You Have Difficulty Seeing? No Information not available 05/01/2022 What Is Your Level Of Caffeine Consumption? Occasional Information not available 05/01/2022 In The 14 Days Before Symptom Onset, Have You Had Close Contact With A Laboratory-confir med COVID-19 While That Case Was Ill? No Information not available 05/05/2023 In The 14 Days Before Symptom Onset, Have You Had Close Contact With A Person Who Is Under Investigation For COVID-19 While That Person Was Ill? No Information not available 05/05/2023 Have You Been To An Area Known To Be High Risk For COVID-19? No Information not available 05/05/2023 Are You Deaf Or Do You Have Serious Difficulty Hearing? No Information not available 05/01/2022 What Type Of Diet Are You Following? REGULAR Information not available 05/01/2022 Do You Use Your Seat Belt Or Car Seat Routinely? Yes Information not available 05/01/2022 Do You Have Smoke And Carbon Monoxide Detectors In Your Home? Yes Information not available 05/01/2022 Do You Feel Stressed (tense, Restless, Nervous, Or Anxious, Or Unable To Sleep At Night)? [id number] Information not available 05/01/2022 Do You Use Any Illicit Or Recreational Drugs? No Information not available 05/01/2022 Do You Use Sunscreen Routinely? Yes Information not available 05/01/2022 Sex: Unknown Functional Status Question Answer Note LastModified by Organizat ion Details LastModified Time Do you have difficulty walking or climbing stairs? No Information not available 05/01/2022 Are you able to walk? YESWOREST Information not available 05/01/2022 Are you able to care for yourself? Yes Information not available 05/01/2022 Do you have difficulty dressing or bathing? No Information not available 05/01/2022 What is your exercise level? Occasional Information not available 05/01/2022 Mental Status None recorded. Family History Relationship Description Onset Age of this Age Resolved Age Notes LastModified by Organization Details LastModified Time Maternal Aunt Diabetes mellitus Not available 2021 14:49:09 Paternal Grandmother Malignant tumor of breast Not available 2021 14:49:18 Paternal Grandfather Metastatic malignant neoplasm Not available 2021 14:49:46 Father Heart disease Not available 2021 14:50:14 Father Hypertensive disorder Not available 2021 14:50:21 Brother Heart disease Not available 2021 14:50:14 Paternal Aunt Heart disease Not available 2021 14:50:14 Paternal Uncle Heart disease Not available 2021 14:50:14 Medical History Condition Response Acid Reflux (GERD) Y Hypertension Y Asthma Y Gynecological History Statement/Question Response Abnormal Pap N Date of Last Mammogram 07/17/2022 STIs/STDs N HPV Vaccine Y Current Control Method Hysterectom y Sexually Active? N Menses Monthly N Date of DEXA bone scan 05/13/2013 Age of first menstrual cycle 13 Date of Last Pap Smear 12/02/2017 Sexual Problems? N Desired Control Method Hysterectom y LMP Unknown Obstetrics History GPAL:G 2 P 0 0 0 2 Type Value Living 2 Total 2 Past Encounters Encounter ID Performer Location Encounter Start Date Encounter Closed Date Diagnosis/Indication Diagnosis SNOMED-CT Code Diagnosis ICD10 Code Diagnosis Note [id number] Riana Colon , [facility] [address] [address] 05/01/2022 14:25:42 05/01/2022 15:13:55 Gynecologic examination 26740446 Z01.419 Take Calcium with Vitamin D 12-1500mg daily. Do monthly self breast exams. It is advised to get annual flu shot in the fall and she could obtain at [facility] or [facility] clinic. If you haven't received the Tdap vaccine in the last 10 years you should obtain one as well. Have mammogram yearly, bone density every 2-3 years and colonoscop y every 5-10 years depending on findings and history. Engage in daily exercise of low impact aerobic exercise 45-60 minutes 4-5 times weekly. Avoid tobacco and illicit drugs as well as using moderation with alcohol intake less than 1-2 8 oz beverages daily. This lifestyle behavior pattern will lead to less health conditions and longer life span. If BMI greater than 25 weight watchers or dietary consult advised. Questions have been answered. Patient appears to understand instructio ns, but if you have any further questions call or respond to this email Pap/hpv USPSTF recommends against screening for cervical cancer in women older than 65yo, those who've had a hysterecto my for non-cancer indication s, & who have had adequate prior screening & are not otherwise at high risk for cervical cancer. STD Screen declined Genetic Screen discussed Colon Screen ordered screening Dexa Screen ordered Routine Labs UTD PCPMammo ordered Postmenopa usal osteopenia [id number] M85.80 Screening for malignant neoplasm of colon 154258495 Z12.11 [id number] Riana Colon [facility] [address] [address] 05/05/2023 11:48:09 05/05/2023 12:44:39 Gynecologic examination 64336235 Z01.419 Take Calcium with Vitamin D 12-1500mg daily. Do monthly self breast exams. It is advised to get annual flu shot in the fall and she could obtain at [facility] or [facility] care clinic. If you haven't received the Tdap vaccine in the last 10 years you should obtain one as well. Have mammogram yearly, bone density every 2-3 years and colonoscop y every 5-10 years depending on findings and history. Engage in daily exercise of low impact aerobic exercise 45-60 minutes 4-5 times weekly. Avoid tobacco and illicit drugs as well as using moderation with alcohol intake less than 1-2 8 oz beverages daily. This lifestyle behavior pattern will lead to less health conditions and longer life span. If BMI greater than 25 weight watchers or dietary consult advised. Questions have been answered. Patient appears to understand instructio ns, but if you have any further questions call or respond to this email Pap/hpv USPSTF recommends against screening for cervical cancer in women older than 65yo, those who've had a hysterecto my for non-cancer indication s, & who have had adequate prior screening & are not otherwise at high risk for cervical cancer. STD Screen declinedGe netic Screen discussedC olon Screen PCP exa Screen orderedRou rip Labs UTD PCPMammo ordered Screening mammography 24 831389 Z12.31 Postmenopa usal osteopenia 916296511 M85.80 Health Concerns Section Related Observation LastModified by Organization Detai ls LastModified Time None Recorded Concern Status LastModified by Organization Details LastModified Time None Recorded Advance Directives Directive None Recorded Payers Encounter Date Sequence Insurance Name Policy Number Policy [place] Covered Member ID [place] Member ID Guarantor Name 05/01/2022 1 [facility] (MEDICARE REPLACEMENT/A DVANTAGE - HMO) [id number] Shefali Wyman [id number] Shefali Wyman 05/05/2023 1 [facility] (MEDICARE REPLACEMENT/A DVANTAGE - HMO) [id number] Shefali Wyman [id number] Shefali Wyman Notes Date Note Type Note Provider Name and Address Organization Details Recorded Time 05/01/2022 text/html 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 Post-MenopausalRe ported bypatient.Menopau josefina Symptoms:no menopausal symptoms; normal vaginal lubrication Vaginal Bleeding:history of menopause having occurred; no history of post menopausal bleeding Urinary Symptoms:no hematuria; no incontinence; no nocturia; no urinary frequency Vulva:no genital lesion; no vulvar atrophy Vagina:normal vaginal discharge; no vaginal atrophy Breast:no breast lump; no nipple discharge; no breast pain Sexual Complaints:no sexual complaints Psychological Symptoms:no depression; no anxiety Preventive Measures:encourag e regular mammograms starting age 40; encourage self breast examination; encourage regular exercise; encourage no tobacco use; needs to schedule mammogram; needs to schedule colonoscopy; needs to schedule bone density Riana Colon LAZ- [address], [place], [address], [facility] 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 Post-MenopausalRe ported bypatient.Menopau josefina Symptoms:no menopausal symptoms; normal vaginal lubrication Vaginal Bleeding:history of menopause having occurred; no history of post menopausal bleeding Urinary Symptoms:no hematuria; no incontinence; no nocturia; no urinary frequency Vulva:no genital lesion; no vulvar atrophy Vagina:normal vaginal discharge; no vaginal atrophy Breast:no breast lump; no nipple discharge; no breast pain Sexual Complaints:no sexual complaints Psychological Symptoms:no depression; no anxiety Preventive Measures:encourag e regular mammograms starting age 40; encourage self breast examination; encourage regular exercise; encourage no tobacco use; needs to schedule mammogram; history of recent colonoscopy; needs to schedule bone density Riana Colon [facility]- [address], [place], [address], [place] [facility] 05/05/2023 12:44:31 OBGyn Episode Ob Episode Information Episode Created Date Number of Fetuses Patient Bloodtype Patient rh Status Prepregnancy Weight lbs Domestic Partner Domestic Partner Phone Father Name Furniture Technician Status 05/01/20 22 1 CLOSED Fetus Data First Name Last Name Admitted to NICU Weight (g) Sex Living Outcome Pediatric Complications Fetus ID Race Codes Race Delivery Type F [id number] Vaginal Delivery Bipin Calculation Initial Bipin Date Initial Exam Date Initial Exam Provider Initial Ultrasound Date Last Menstrual Period Date Ultra Sound Weeks Gestation 0 Eighteen To Twenty Week Bipin Update Ultra Sound Date Fundal Height At Umbil Quickening Date Ultra Sound Latest Weeks Gestation Final Bipin Confirmed By Final Bipin Confirmed Date Final Bipin Date Ultra Sound Latest Days Gestation 0 0 Menstrual History Last Menstrual Date Menses Monthly On Bcp Conception Prior Menses Frequency Hcg Plus Date Menarche Onset Age Delivery Information Delivery Date Delivery Type Labor Anesthesia Weeks Gestation Incision Type Labor Labor Length Hrs Delivered By Post Complications Tubal Sterilization Discharge Date Comments 5 Discharge Information Feeding Method Contraceptive Method Maternal HG B and HCT Levels Ob Episode Information Episode Created Date Number of Fetuses Patient Bloodtype Patient rh Status Prepregnancy Weight lbs Domestic Partner Domestic Partner Phone Father Name Furniture Technician Status 05/01/20 22 1 CLOSED Fetus Data First Name Last Name Admitted to NICU Weight (g) Sex Living Outcome Pediatric Complications Fetus ID Race Codes Race Delivery Type M [id number] Vaginal Delivery Bipin Calculation Initial Bipin Date Initial Exam Date Initial Exam Provider Initial Ultrasound Date Last Menstrual Period Date Ultra Sound Weeks Gestation 0 Eighteen To Twenty Week Bipin Update Ultra Sound Date Fundal Height At Umbil Quickening Date Ultra Sound Latest Weeks Gestation Final Bipin Confirmed By Final Bipin Confirmed Date Final Bipin Date Ultra Sound Latest Days Gestation 0 0 Menstrual History Last Menstrual Date Menses Monthly On Bcp Conception Prior Menses Frequency Hcg Plus Date Menarche Onset Age Delivery Information Delivery Date Delivery Type Labor Anesthesia Weeks Gestation Incision Type Labor Labor Length Hrs Delivered By Post Complications Tubal Sterilization Discharge Date Comments 2 Discharge Information Feeding Method Contraceptive Method Maternal HG B and HCT Levels
--- OUTSIDE RECORDS SUMMARY | 2024-10-21 05:27 | XMS_ITS | Patient Health Summary ---
Author Organization [facility] Address [address] [place] [address] Care Team Providers Care Security Developer Name Role Phone En Muñiz MD Primary Care Provider [phone] [facility],non-owned Affiliates and Associated Physician Practices is amultiple site organization consisting of ambulatory clinics and hospital sitesin [place], [place], [place] and [place]. This disclosure is being madepursuant to the Care Everywhere program and may not contain all information available regarding this patient. Last updated 18.[facility] Allergies * Morphine(Urticaria) -Medium Criticality Medications * Be aware that medications may not be up to date on this document. Alwaysverify current medications with the patient. * irbesartan (AVAPRO) 150 MG tablet Take 150 mg by mouth once daily * montelukast (SINGULAIR) 10 MG tablet Take 10 mg by mouth at bedtime * pantoprazole EC (PROTONIX) 20 MG tablet Take 20 mg by mouth once daily * Pyridoxine HCl (VITAMIN B-6 PO) * Cyanocobalamin (VITAMIN B12) 100 MCG * budesonide-formoterol (SYMBICORT) 160-4.5 MCG/ACT inhaler Inhale 2 puffs by mouth 2 times daily * docusate sodium (COLACE) 100 MG capsule Take 100 mg by mouth once daily * cetirizine (ZYRTEC) 10 MG tablet Take 10 mg by mouth once daily * Ohwrikatnhego-CU-EH-APAP (MUCINEX SINUS-MAX) 2-22-798-325 MG Social History Tobacco Use Types Packs/Day Years Used Date Smoking Tobacco: Former Cigarettes Q uit: 2003 Smokeless Tobacco: Never Sex and Gender Information Value Date Recorded Sex Assigned at Not on file Gender Identity Not on file Sexual Orientation Not on file Last Filed Vital Signs Vital Sign Reading Time Taken Comments Blood Pressure 130/72 06/14/2019 12:15 PM CDT Pulse 62 06/14/2019 12:15 PM CDT Temperature 36.5 ??C (97.7 ??F) 06/14/2019 12:15 PM C DT Respiratory Rate 16 06/14/2019 12:15 PM CDT Oxygen Saturation 95% 06/14/2019 12:15 PM CDT Inhaled Oxygen Concentration - - Weight 69.9 kg (154 lb) 06/14/2019 12:15 PM CDT Height 158.8 cm (5' 2.5 ) 06/14/2019 12:15 PM CD T Body Mass Index 27.72 06/14/2019 12:15 PM CDT Care Teams Security Developer Relationship Specialty Start Date End Date En Muñiz MD PCP - General Family Medicine 06/14/19
--- OUTSIDE RECORDS SUMMARY | 2024-10-21 05:27 | XMS_ITS | Referral Summary ---
Author Organization [facility] Address [address] [place] [address] Care Team Providers Care Translator Name Role Phone En Muñiz MD Primary Care Provider [phone] Source Comments [facility],non-owned Affiliates and Associated Physician Practices is amultiple site organization consisting of ambulatory clinics and hospital sitesin [place], [place], [place] and [place]. This disclosure is being madepursuant to the Care Everywhere program and may not contain all information available regarding this patient. Last updated 18.[facility] Allergies Active Allergy Reactions Criticality Noted Date Comments Morphine Urticaria Medium 06/14/2019 Medications * Be aware that medications may not be up to date on this document. Alwaysverify current medications with the patient. Medication Sig Dispensed Refills Start Date End Date Status irbesartan (AVAPRO) 150 MG tablet Take 150 mg by mouth once daily Active montelukast (SINGULAIR) 10 MG tablet Take 10 mg by mouth at bedtime Active pantoprazole EC (PROTONIX) 20 MG tablet Take 20 mg by mouth once daily Active Pyridoxine HCl (VITAMIN B-6 PO) Active Cyanocobalamin (VITAMIN B12) 100 MCG Act osmar budesonide-formoterol (SYMBICORT) 160-4.5 MCG/ACT inhaler Inhale 2 puffs by mouth 2 times daily Active docusate sodium (COLACE) 100 MG capsule Take 100 mg by mouth once daily Active cetirizine (ZYRTEC) 10 MG tablet Take 10 mg by mouth once daily Active Ayreikdfpyern-LK-FV-AP AP (MUCINEX SINUS-MAX) 9-59-209-325 MG Active Social History Tobacco Use Types Packs/Day Years [...] Mass Index 27.72 06/14/2019 12:15 PM CDT Plan of Treatment Not on file Care Teams Translator Relationship Specialty Start Date End Date En Muñiz MD PCP - General Family Medicine 06/14/19
--- OUTSIDE RECORDS SUMMARY | 2024-10-21 05:27 | XMS_ITS | Clinical Summary ---
Author Organization [facility] Address [address] [place] [address] Care Team Providers Care Brick Burner Head Name Role Phone En Muñiz MD Primary Care Provider [phone] Source Comments [facility],non-owned Affiliates and Associated Physician Practices is amultiple site organization consisting of ambulatory clinics and hospital sitesin [place], [place], [place] and [place]. This disclosure is being madepursuant to the Care Everywhere program and may not contain all information available regarding this patient. Last updated 18.[facility] Allergies Active Allergy Reactions Criticality Noted Date [...] 10 mg by mouth once daily Active Zdlydjmyoyqzd-MA-VT-AP AP (MUCINEX SINUS-MAX) 3-14-619-325 MG Active Social History Tobacco Use Types [...] 06/14/2019 12:15 PM CDT Plan of Treatment Health Maintenance Due Date Last Done Comments BONE DENSITY TESTING 1954 COLOGUARD (AGES 45-75) - COL ON CA SCREENING 1954 COLON MONITORING 1954 COLONOSCOPY - COLON CA SCREENING 1954 CT COLONOGRAPHY - COLON CA SCREENING 1954 Colorectal Cancer Screening 1954 FIT - COLON CA SCREENING 1954 FLEX SIG - COLON CA SCREENING 1954 LIPID TESTING 1954 MAMMOGRAM 1954 HEPATITIS C SCREENING 07/31/1972 DTAP/TDAP/TD VACCINES (1 - Tdap) 1973 PNEUMOCOCCAL VACCINE 50+ (1 of 1 - PCV) 2004 ZOSTER VACCINE (1 of 2) 2004 SCREENING FOR DIABETES 06/14/2019 COVID-19 VACCINE ( - 2023-2 5 season) 2024 INFLUENZA VACCINE (#1) 2024 DEPRESSION SCREENING 09/28/2024 Respiratory Syncytial Virus (RSV) Vaccine Pt: or over 60 yrs (1 - 1-dose 75+ series) 2029 HEPATITIS B VACCINE Aged Out No longe r eligible based on patient's age to complete this topic HIB VACCINE Aged Out No longer eligi ble based on patient's age to complete this topic HPV VACCINE Aged Out No longer eligi ble based on patient's age to complete this topic MENINGOCOCCAL (Group B) VACCINE Aged Out No longer eligible based on patient's age to complete this topic MENINGOCOCCAL VACCINE Aged Out No ignacio alaina eligible based on patient's age to complete this topic Care Teams Brick Burner Head Relationship Specialty Start Date End Date En Muñiz MD PCP - General Family Medicine 06/14/19
--- OUTSIDE RECORDS SUMMARY | 2024-10-21 05:27 | XMS_ITS | Continuity of Care Document ---
Author Organization [facility] Address [address] [place] [address] Phone Care Team Providers Care Maitre D' Name Role Phone Tai Eli MD, FACS Unavailable Unavailab le Advance Directives Directive Yes / No Effective Date File Name No Information Encounters Encounter Description Practice Location Reason(s) For Visit Diagnoses Date Provider Providers Copied on Encounter [facility], [address], [place], [place], [id number], [place] tel:[phone] No Information Sep- 4-200 0 Sreedhar Lujan. [address], [address], [place], [place], [id number], [place]. tel:[phone] Family History Family Member Type Diagnosis Age At Onset No Information Payers Payer name Insurance type Covered alliance party ID Authoriza tinilam(s) [facility] CI [id number] Social History Type Description Quantity Date Captured Comments Sex Female Smoking Status No Information Chief Complaint And Reason For Visit No Information Reason For Referral Reason For Referral No Information History Of Present Illness Encounter Date Complaint History Of Prese nt Illness No Information Functional Status Date Functional Assessmen t No Information Instructions Date Instruction Additional Infor mation No Information Assessments Type Assessment Date No Information Patient Care Teams Name Effective Dates (start - stop) Status Members No Information
--- OUTSIDE RECORDS SUMMARY | 2024-10-21 05:35 | XMS_ITS | Continuity of Care Document ---
Author Organization [facility] Address [address] [place] [address] Phone Care Team Providers Care Pot Washer Name Role Phone Tai Eli MD, FACS Unavailable Unavailab le Advance Directives Directive Yes / No Effective Date File Name No Information Encounters Encounter Description Practice Location Reason(s) For Visit Diagnoses Date Provider Providers Copied on Encounter [facility], [address], [place], [place], [id number], [place] tel:[phone] [address] [facility] [address] [address] No Information Sep- 4-200 0 Sreedhar Lujan. [address], [address], [place], [place], [id number], [place]. tel:[phone] Family History Family Member Type Diagnosis Age At Onset No Information Payers Payer name Insurance type Covered alliance party ID Authoriza tinilam(s) [facility] CI [id number] Social History Type Description Quantity Date Captured [...]
[2024-10-21 06:20] LABS: Hematocrit 41.5 % (37.0-47.0); Immature Granulocyte Absolute 0.01 K/mm3 (0.00-0.031); Immature Granulocyte Percent A 0.5 % (0-0.5); Lymphocytes Absolute Auto 0.69 K/mm3 (0.9-3.2); Lymphocytes Percent Auto 33.2 % (18.3-44.2); Mean Corpuscular HGB Conc 33.7 g/dl (32-36); Mean Corpuscular Volume 85.9 fl (80-100); Mean Platelet Volume 11.9 fl (7.4-10.4); Monocytes Absolute Auto 0.1 K/mm3 (0.1-0.6); Monocytes Percent Auto 2.4 % (2.6-8.5); Neutrophils Absolute Auto 1.3 K/mm3 (1.3-6.7); Neutrophils Percent Auto 63.9 % (45.5-73.1); Platelet Count Result 181 k/mm3 (150-375); Red Blood Count 4.83 M/mm3 (4.2-5.4); White Blood Count 2.1 K/mm3 (4.5-10.0)
[2024-10-21 06:34] LABS: Alanine Aminotransferase 20 U/L (6-35); Albumin Level 3.8 g/dL (3.5-5.1); Alkaline Phosphatase 86 U/L (38-126); Anion Gap 8 mmol/L (4-12); Aspartate Amino Transferase 28 U/L (14-36); Bilirubin,Total 0.4 mg/dL (0.2-1.3); Calcium 8.8 mg/dL (8.4-10.2); Carbon Dioxide 28 mmol/L (22-30); Chloride 104 mmol/L (98-107); Estimated CRCL calculation 87 ml/min; Estimated Glomerular Filt Rate > 60; Glucose 179 mg/dL (65-110); Potassium 3.4 mmol/L (3.4-5.0); Sodium 140 mmol/L (137-145)
[2024-10-21 06:52] LABS: Blood Urea Nitrogen < 2 mg/dL (7-17); Procalcitonin 0.1 ng/mL
[2024-10-21 06:56] LABS: Atypical Lymphocytes Present; Platelet Estimate Adequate (Adequate); Schistocytes None Seen
[2024-10-21] MEDS: FLUTICASONE/UMECLIDIN/VILANTER 100-62.5-25 MCG ELLIPTA 1 PUFF INHALATION (07:53)
--- NOTE | 2024-10-21 07:59 | P.HP_ITS ---
H&P: HPI History of Present Illness Date/Time: 10/21/24 07:59 Chief Complaint: Nausea, vomiting, diarrhea Narrative: This is a 69 year old female with a past medical history of COPD, osteopenia, asthma, depression, hyperlipidemia, hypertension, GERD, former smoker who presented to the hospital with nausea, vomiting, diarrhea. Patient states she started feeling bad the Thursday after [place] with sinus infection. She called her PCP who prescribed her Doxycycline which caused her to have nausea and vomiting. She called back and they switched her to Cefdinir which she finished the entire course. Her symptoms were still not relieved and she presented to the hospital for further evaluation of her symptoms. She denies any fever, chills, nausea, vomiting, chest pain or shortness of breath. She endorses a sore throat, tight raspy cough, and wheezing. Work up in the hospital included an abdomen/pelvis CT which shown mild right lower lobe pneumonia. Chest x-ray shown mild atelectasis in lingula. Initial labs shown a WBC 6.9, Na+ 136, K+ 3.2, Chl 96, BG ranging 110-179, Lipase and procalcitonin were WNL. UA shown 1+ blood, 2+ leukocytes, 6-10 urine WBC. Respiratory panel was positive for Influenza A. C-di ff and Norovirus PCR still pending. Stool culture pending. Patient was given 1L NS, duo-neb, potassium, Solu-Medrol, Rocephin, Azithromycin, and Zofran while in the ER. Review of Systems Review of Systems: All systems reviewed & are unremarkable except as noted in HPI and below Constitutional: Constitutional: Reports as per HPI and Reports no additional constitutional complaints Eyes: Eyes: Reports as per HPI and Reports no additional eye complaints ENT: Reports system reviewed and no additional complaints, except as documented and Reports as per HPI Cardiovascular: Cardiovascular: Reports as per HPI and Reports no additional cardiovascular complaints Respiratory: Respiratory: Reports as per HPI and Reports no additional respiratory complaints Gastrointestinal: Gastrointestinal: Reports as per HPI and Reports no additional gastrointestinal complaints Genitourinary: Genitourinary: Reports no additional female genitourinary complaints and Reports as per HPI Musculoskeletal: Musculoskeletal: Reports no additional musculoskeletal complaints and Reports as per HPI Integumentary/Breasts: Skin/Breast: Reports system reviewed and no additional complaints, except as docu and Reports as per HPI Neurologic: Reports system reviewed and no additional complaints, except as documented and Reports as per HPI Psychiatric: Psychiatric: Reports no additional psychiatric complaints and Reports as per HPI [facility] Past Medical History Medical History COPD (chronic obstructive pulmonary disease) moderate emphysema on CT of the chest 10/13/2023. diagnostic CT of the chest on 10/12/2024 with moderate emphysema. Functional memory problem (~2023) Osteopenia after menopause T-score -2.1 at the spine, -2.0 left hip, -1.7 right hip on 07/17/2022. Coronary artery calcification seen on CAT scan (10/13/23) calcifications noted on CT of the chest 10/13/2023. Asthma Chronic bilateral thoracic back pain (07/07/17) MRI of the thoracic spine on 07/10/2023 with degenerative changes. Spondylosis of the thoracic spine on chest x-ray 07/04/2023. At low risk for fall Chronic cough CT of the chest on 10/13/2023 with moderate Emphysema, coronary artery calcifications, severe spondylosis of cervical thoracic spine. Acute thoracic back pain (~02/2023) spondylosis of the thoracic spine on chest x-ray 04/06/2023. BMI 34.0-34.9,adult Obesity (BMI 30.0-34.9) Encounter for HCV screening test for low risk patient (10/10/22) screening by house calls advanced physician general practice 10/10/2022 was negative for hepatitis C. UTI (urinary tract infection) BMI 32.0-32.9,adult Seasonal allergic rhinitis Chronic depression (~10/30/20) Breast cancer screening by mammogram mammogram normal on 07/17/2022. Colon cancer screening history of colon polyps 2002 with normal subsequent colonoscopies. Colonoscopy 12/09/2022 was normal with recheck in 10 years. Chronic left shoulder pain Lipoma of shoulder BMI 33.0-33.9,adult Chest pain Acute bronchitis chest x-ray on 10/14/2021 Was negative except for hyperinflation. chest x-ray 04/06/2023 with no active lung disease. Vitamin D insufficiency Level normal at 50 on 06/23/2023. Vitamin B12 deficiency anemia 940 on 11/19/2021. Level normal at 562 with hemoglobin 15.4 on 06/23/2023. Mixed hyperlipidemia total cholesterol 267, triglycerides 137, HDL 70, LDL 170 on 11/19/2021. Cholesterol 277, triglycerides 147, HDL excellent at 60, LDL 188 with ratio 4.6 on 06/23/2023. Cholesterol 236, triglycerides 154, HDL 54, LDL 140 on 01/21/2024. Cholesterol 161, triglycerides 289, HDL 62, LDL 86 on 03/25/2024. Gastro-esophageal reflux disease without esophagitis Essential (primary) hypertension Chronic bilateral low back pain with bilateral sciatica Chronic constipation Moderate persistent asthma, uncomplicated PFT on 07/31/2023 with moderate to severe obstructive defect with response to bronchodilator therapy. Acute sinusitis, unspecified Surgical History Surgical History H/O: hysterectomy History of cholecystectomy Family History Family History Mother Patient's mother is , Onset Age: 79 Father Acute myocardial infarction, Onset Age: 58 Sibling Acute myocardial infarction, Onset Age: 75 Grandparent Family history of malignant neoplasm Family history of malignant neoplasm of breast Social History Social History Smoking packs per day: 2 Smoking cigarettes per day: 40.0 Years smoked: 30 Smoking pack-years: 60.00 Smoking status: Former smoker Tobacco type: cigarettes Alcohol intake: never Substance use: never Substance use type: does not use Do You Feel Safe in your Home?: Yes Lack of Transportation: No Lack of Food: Never True Current Housing: I Have Housing Concerned About Future Housing: No Difficulty Paying Gas/Electric Bills: No Difficulty Paying for Meds: No Currently Unemployed: No Education: High School Diploma/GED Difficulty w/ Childcare or Family Care: No Living arrangements: with family Occupation/Education: retired Gender identity (if verbalized by the patient): Female Spiritual care concerns: No Meds Home Medications and Allergies Home Medications ?Medication ?Instructions ?Recorded ?Confirmed ?Type atorvastatin 40 mg tablet 40 mg PO DAILY #30 tabs 01/21/24 10/20/24 Rx Alpha Brain 1 cap PO DAILY 05/25/24 10/20/24 History B Complex Plus Vitamin C 1 tab-cap PO DAILY 05/25/24 10/20/24 History fluticasone propionate 50 1 spray intranasal DAILY #16 grams 05/25/24 10/20/24 Rx mcg/actuation nasal spray,suspension (Flonase Allergy Relief) montelukast 10 mg tablet 10 mg PO DAILY #90 tabs 07/26/24 10/20/24 Rx amlodipine 5 mg tablet 5 mg PO DAILY #100 tabs 07/29/24 10/20/24 Rx duloxetine 30 mg capsule,delayed 30 mg PO DAILY #100 caps 07/29/24 10/20/24 Rx release (Cymbalta) irbesartan 300 mg tablet 300 mg PO DAILY #100 tabs 07/29/24 10/20/24 Rx pantoprazole 40 mg tablet,delayed 40 mg PO QAM #90 tabs 08/24/24 10/20/24 Rx release (Protonix) budesonide 160 mcg-glycopyr 9 2 inh inhalation BID 09/26/24 10/20/24 History mcg-formot 4.8 mcg/actuation HFA inhaler (Breztri Aerosphere) amoxicillin 500 mg-potassium 1 tablet PO Q12H #20 tabs 10/10/24 10/20/24 Rx clavulanate 125 mg tablet (Augmentin) Allergies Allergy/AdvReac Type Severity Reaction Status Date / Time morphine Allergy Unknown Itching Verified 07/20/24 12:53 poison ifeoma extract Allergy Unknown Rash Verified 07/20/24 12:53 doxycycline AdvReac Intermediate difficulty Verified 10/10/24 15:33 swallowing Vital Signs Vital Signs - 24 hr 10/20/24 13:59 10/20/24 14:53 10/20/24 16:12 Temperature 97.5 F L Pulse Rate 106 H 80 85 Respiratory Rate 20 20 19 Blood Pressure 154/90 H Pulse Oximetry 97 96 Oxygen Delivery Room Air 10/20/24 16:15 10/20/24 16:16 10/20/24 16:30 Temperature Pulse Rate 88 90 77 Respiratory Rate 12 18 14 Blood Pressure 127/72 Pulse Oximetry 90 97 Oxygen Delivery 10/20/24 16:31 10/20/24 17:10 10/20/24 17:15 Temperature Pulse Rate 79 85 86 Respiratory Rate 15 16 16 Blood Pressure 151/64 H Pulse Oximetry 94 97 91 Oxygen Delivery 10/20/24 17:16 10/20/24 17:50 10/20/24 19:31 Temperature Pulse Rate 83 85 120 H Respiratory Rate 22 H 16 19 Blood Pressure 146/105 H Pulse Oximetry 94 Oxygen Delivery 10/20/24 19:46 10/20/24 20:00 10/20/24 20:15 Temperature Pulse Rate 121 H 120 H Respiratory Rate 37 H 19 19 Blood Pressure Pulse Oximetry 88 L 93 92 Oxygen Delivery 10/20/24 20:30 10/20/24 20:43 10/20/24 20:45 Temperature Pulse Rate 119 H 115 H 118 H Respiratory Rate 20 17 24 H Blood Pressure Pulse Oximetry 94 94 94 Oxygen Delivery 10/20/24 21:00 10/20/24 21:15 10/20/24 21:30 Temperature Pulse Rate 112 H 112 H Respiratory Rate 16 21 H Blood Pressure Pulse Oximetry 94 94 Oxygen Delivery 10/20/24 21:45 10/20/24 21:45 10/20/24 22:12 Temperature Pulse Rate 108 H Respiratory Rate 22 H Blood Pressure 114/68 Pulse Oximetry 93 93 Oxygen Delivery Room Air 10/21/24 00:00 10/21/24 03:18 10/21/24 03:27 Temperature Pulse Rate 107 H 78 Respiratory Rate 20 18 Blood Pressure Pulse Oximetry Oxygen Delivery 10/21/24 04:00 10/21/24 05:36 10/21/24 07:47 Temperature 97.9 F Pulse Rate 103 H 106 H 98 Respiratory Rate 16 20 Blood Pressure 143/80 H Pulse Oximetry 92 92 Oxygen Delivery Room Air 10/21/24 07:47 10/21/24 07:57 Temperature Pulse Rate 98 95 Respiratory Rate 20 20 Blood Pressure Pulse Oximetry Oxygen Delivery Exam Narrative: General: In no acute distress, well nourished Head: atraumatic, no encephalopathy Eyes: PERRLA, sclera clear ENT: moist mucous membranes, nasal passages clear, reports sore throat today Neck: supple, no JVD, no adenopathy, trachea midline Cardiac: Normal S1 and S2. tachycardia, No murmur, gallops or friction rubs, peripheral pulses intact. Respiratory:Wheezing noted bilaterally with raspy tight cough, currently on room air Gastrointestinal: soft, non-distended, non-tender, normoactive bowel sounds. Reports diarrhea again today : voiding without difficulty. Extremities: moves all extremities well, no edema Skin: clean, dry, intact. No wounds or lesions. Neuro: Alert and oriented x4, cranial nerves intact, no neuro deficits. Psych: normal mood, normal affect, interactive H&P: Results Labs Labs: Short CBC 10/20/24 10/21/24 Range/Units 15:15 05:42 WBC 6.9 2.1 L (4.5-10.0) K/mm3 Hgb 16.1 H 14.0 (12.0-15.0) g/dL Hct 48.0 H 41.5 (37.0-47.0) % Plt Count 199 181 (150-375) k/mm3 BMP 10/20/24 10/21/24 15:15 05:42 Sodium 136 L 140 Potassium 3.2 L 3.4 Chloride 96 L 104 Carbon Dioxide 30 28 BUN 3 L < 2 L Creatinine 0.69 L 0.49 L Glucose 110 179 H Calcium 9.0 8.8 Liver Function 10/20/24 10/21/24 Range/Units 15:15 05:42 Total Bilirubin 0.6 0.4 (0.2-1.3) mg/dL AST 35 28 (14-36) U/L ALT 25 20 (6-35) U/L Alkaline Phosphatase 109 86 (38-126) U/L Albumin 4.2 3.8 (3.5-5.1) g/dL Urine 10/20/24 Range/Units 15:15 Urine Color Yellow (Yellow) Urine Appearance Clear (Clear) Urine pH 6.5 (5.0-9.0) Ur Specific [place] 1.003 (1.001-1.035) Urine Protein Negative (Negative) mg/dL Urine Glucose (UA) Negative (Negative) mg/dL Imaging abdomen/pelvis CT: Radiologist's impression: EXAMINATION: CT abdomen pelvis wo con DATE: 10/20/2024 14:29 INDICATION: Diarrhea. TECHNIQUE: Computed tomography (CT) of the abdomen and pelvis was performed without intravenous contrast. Automated exposure control and iterative reconstruction technique were employed. The dose-length product was 484.49 mGy- cm. COMPARISON: CT abdomen 06/18/2004, chest CT 10/12/2024 FINDINGS: The visualized portions of lung bases demonstrate mild atelectasis. There are new centrilobular nodules and groundglass opacities in basilar right lower lobe, consistent with mild pneumonia. No pleural effusion. The heart size is normal. There are coronary artery calcifications. No pericardial effusion. There is a small sliding hiatal hernia. There are changes of cholecystectomy. The liver, spleen, pancreas, adrenal glands, and kidneys are normal. There is no urolithiasis. There are no dilated loops of bowel. The appendix is normal. There is calcified atherosclerosis of the aorta and many of the other arteries. There are no pathologically enlarged lymph nodes. There is no free intraperitoneal fluid. There is severe thoracic spondylosis and moderate lumbar spondylosis. There is a chronic compression fracture of L1. IMPRESSION: 1. Mild right lower lobe pneumonia. Reviewed, dictated and finalized at location [facility] Chest x-ray: Radiologist's impression: EXAMINATION: XR chest 2V DATE: 10/20/2024 14:35 INDICATION: Wheezing. TECHNIQUE: Frontal and lateral views of the chest were obtained. COMPARISON: Chest 2 view 04/06/2023, CT abdomen and pelvis 10/20/2024 FINDINGS: There is mild atelectasis in lingula. No pleural effusion or pneumothorax. The heart size is normal. Surgical clips in the right upper quadrant are likely from cholecystectomy. There is mild chronic anterior wedging of multiple mid thoracic vertebral bodies. IMPRESSION: 1. Mild atelectasis in lingula. Reviewed, dictated and finalized at location [facility] Assessment and Plan Assessment and plan (1) Influenza A: Code(s): J10.1 - Influenza due to other identified influenza virus with other respiratory manifestations Status: Acute Assessment and Plan: * abdomen / pelvis CT showed mild right lower lobe pneumonia * chest x-ray showed mild atelectasis in lingula * respiratory panel positive for influenza A * continue Tamiflu (2) Pneumonia: Code(s): J18.9 - Pneumonia, unspecified organism Status: Acute Assessment and Plan: * continue Rocephin and azithromycin * abdomen/pelvis CT showed mild right lower lobe pneumonia Likely secondary to influenza A * new DuoNebs * continue prednisone * MRSA negative (3) UTI (urinary tract infection): Code(s): N39.0 - Urinary tract infection, site not specified Status: Acute Assessment and Plan: * UA showing 2+ leukocyte, 6-10 urine WBC, moderate epithelial cells, no bacteria * currently on Rocephin * urine culture ordered (4) Diarrhea: Qualifiers: Diarrhea type: unspecified type Qualified Code(s): R19.7 - Diarrhea, unspecified Code(s): R19.7 - Diarrhea, unspecified Status: Acute Assessment and Plan: likely secondary to influenza A * stool culture pending * C diff and norovirus pending (5) Hypokalemia: Code(s): E87.6 - Hypokalemia Status: Acute Assessment and Plan: likely secondary to diarrhea from influenza A * potassium initially 3.2 and was given 40 mEq of potassium in the ED * currently at 3.4 * will give an additional 40 mEq today * continue to trend (6) Essential (primary) hypertension: Code(s): I10 - Essential (primary) hypertension Status: Acute Assessment and Plan: * blood pressure ranging 114/68 to 143/80 * continue amlodipine and Irbesartan (7) Coronary artery calcification seen on CAT scan: Onset Date: 10/13/23 Code(s): I25.10 - Atherosclerotic heart disease of [place] coronary artery without angina pectoris Status: Acute Assessment and Plan: * continue atorvastatin (8) Gastro-esophageal reflux disease without esophagitis: Code(s): K21.9 - Gastro-esophageal reflux disease without esophagitis Status: Acute Assessment and Plan: * continue Protonix Quality VTE Prophylaxis VTE prophylaxis: pharmacologic ordered Hospitalist MIPS Advance Care Plan I have confirmed that the patient's Advanced Care Plan is present, code status is documented, or surrogate decision maker is listed in patient medical record.: Yes Medication Reconciliation I have utilized all available resources to obtain, update and review the patients current medications (includes all prescriptions, OTC, herbals, cannabis, and nutritional supplements).: Yes
[2024-10-21] MEDS: FLUTICASONE PROPIONATE 0.05% NA SPR 16 GM BTL (*BKC) 1 SPRAY NASAL (08:39)
[2024-10-21] MEDS: ENOXAPARIN 40 MG/0.4 ML SYRINGE SUB-Q (08:39)
[2024-10-21] MEDS: POTASSIUM CHLORIDE 20 MEQ ER TABLET 40 MEQ PO (08:39)
[2024-10-21] MEDS: predniSONE 20 MG TABLET 60 MG PO (08:40)
[2024-10-21] MEDS: DULoxetine HCL 30 MG CAPSULE.DR PO (08:40)
[2024-10-21] MEDS: ATORVASTATIN 40 MG TABLET PO (08:40)
[2024-10-21] MEDS: IRBESARTAN 150 MG TABLET 300 MG PO (08:40)
[2024-10-21] MEDS: MONTELUKAST SODIUM 10 MG TABLET PO (08:40)
[2024-10-21] MEDS: amLODIPine BESYLATE 5 MG TABLET PO (08:40)
[2024-10-21] MEDS: PANTOPRAZOLE 40 MG TABLET PO (08:40)
[2024-10-21] MEDS: OSELTAMIVIR PHOSPHATE 75 MG CAPSULE PO ×2 (08:40→20:21)
[2024-10-21] MEDS: AZITHROMYCIN 250 MG TABLET 500 MG PO (08:48)
[2024-10-21 08:57] LABS: Toxigenic C. Diff NEGATIVE (NEGATIVE)
[2024-10-21 11:50] LABS: MRSA (PCR) NOT DETECTED (NOT DETECTE)
[2024-10-22] VITALS (14 sets, daily range): BP systolic 131–148; BP diastolic 57–73; PULSE 78–136; RESP 16–20; TEMP 36.5–36.7; O2SAT 91–95
[2024-10-22] MEDS: IPRATROPIUM 0.5 MG/ALBUTEROL SULFATE 2.5 MG AMPUL.NEB 3 ML INHALATION ×4 (01:40→20:06)
[2024-10-22 05:20] LABS: Basophils Percent Auto 0.1 % (0.2-1.2); Eosinophils Percent Auto 0.1 % (0-4.4); Hematocrit 39.8 % (37.0-47.0); Hemoglobin 12.9 g/dL (12.0-15.0); Immature Granulocyte Absolute 0.02 K/mm3 (0.00-0.031); Immature Granulocyte Percent A 0.3 % (0-0.5); Lymphocytes Absolute Auto 1.76 K/mm3 (0.9-3.2); Lymphocytes Percent Auto 23.2 % (18.3-44.2); Mean Corpuscular HGB Conc 32.4 g/dl (32-36); Mean Corpuscular Hemoglobin 28.9 pg (26-34); Mean Corpuscular Volume 89.2 fl (80-100); Mean Platelet Volume 11.7 fl (7.4-10.4); Monocytes Absolute Auto 0.7 K/mm3 (0.1-0.6); Monocytes Percent Auto 9.2 % (2.6-8.5); Neutrophils Absolute Auto 5.1 K/mm3 (1.3-6.7); Neutrophils Percent Auto 67.1 % (45.5-73.1); Platelet Count Result 200 k/mm3 (150-375); Red Blood Count 4.46 M/mm3 (4.2-5.4); Red Cell Distribution Width 13.3 % (11.5-14.5); White Blood Count 7.6 K/mm3 (4.5-10.0)
[2024-10-22 05:35] LABS: Alanine Aminotransferase 19 U/L (6-35); Albumin Level 3.6 g/dL (3.5-5.1); Alkaline Phosphatase 70 U/L (38-126); Anion Gap 7 mmol/L (4-12); Aspartate Amino Transferase 32 U/L (14-36); Bilirubin,Total 0.5 mg/dL (0.2-1.3); Blood Urea Nitrogen 4 mg/dL (7-17); Calcium 8.6 mg/dL (8.4-10.2); Carbon Dioxide 25 mmol/L (22-30); Chloride 107 mmol/L (98-107); Estimated CRCL calculation 81 ml/min; Estimated Glomerular Filt Rate > 60; Glucose 111 mg/dL (65-110); Magnesium 2.3 mg/dL (1.6-2.3); Potassium 3.4 mmol/L (3.4-5.0); Sodium 139 mmol/L (137-145)
[2024-10-22 05:49] LABS: Procalcitonin 0.1 ng/mL
--- NOTE | 2024-10-22 07:26 | P.PNIM_ITS ---
Progress Note: A&P Assessment and Plan (1) Influenza A: Code(s): J10.1 - Influenza due to other identified influenza virus with other respiratory manifestations Status: Acute Assessment and Plan: * abdomen / pelvis CT showed mild right lower lobe pneumonia * chest x-ray showed mild atelectasis in lingula * respiratory panel positive for influenza A * continue Tamiflu 10/22 * Patient more confused today, will stop Tamiflu * Continue with Duo-nebs * Decrease prednisone to 50 mg today (2) Pneumonia: Code(s): J18.9 - Pneumonia, unspecified organism Status: Acute Assessment and Plan: * continue Rocephin and azithromycin * abdomen/pelvis CT showed mild right lower lobe pneumonia Likely secondary to influenza A * new DuoNebs * continue prednisone * MRSA negative 10/22 * No change to current treatment plan (3) UTI (urinary tract infection): Code(s): N39.0 - Urinary tract infection, site not specified Status: Acute Assessment and Plan: * UA showing 2+ leukocyte, 6-10 urine WBC, moderate epithelial cells, no bacteria * currently on Rocephin * urine culture ordered 10/22 * Urine culture showing gram negative bacilli isolated on preliminary read * Continue Rocephin (4) Diarrhea: Qualifiers: Diarrhea type: unspecified type Qualified Code(s): R19.7 - Diarrhea, unspecified Code(s): R19.7 - Diarrhea, unspecified Status: Acute Assessment and Plan: likely secondary to influenza A * stool culture pending * C diff and norovirus pending 10/22 * stool culture still pending * C diff negative * Norovirus pending (5) Hypokalemia: Code(s): E87.6 - Hypokalemia Status: Acute Assessment and Plan: likely secondary to diarrhea from influenza A * potassium initially 3.2 and was given 40 mEq of potassium in the ED * currently at 3.4 * will give an additional 40 mEq today * continue to trend 10/22 * K+ 3.4 * Will give 40 meq today (6) Essential (primary) hypertension: Code(s): I10 - Essential (primary) hypertension Status: Acute Assessment and Plan: * blood pressure ranging 114/68 to 143/80 * continue amlodipine and Irbesartan 10/22 * No change (7) Coronary artery calcification seen on CAT scan: Onset Date: 10/13/23 Code(s): I25.10 - Atherosclerotic heart disease of [place] coronary artery without angina pectoris Status: Acute Assessment and Plan: * continue atorvastatin 10/22 * No change (8) Gastro-esophageal reflux disease without esophagitis: Code(s): K21.9 - Gastro-esophageal reflux disease without esophagitis Status: Acute Assessment and Plan: * continue Protonix 10/22 * No change (9) Confusion: Code(s): R41.0 - Disorientation, unspecified Status: Acute Assessment and Plan: Reported confusion overnight and unable to recall events from yesterday. * Will check Apnea link tonight to assess for HUMBLE * CT of the head ordered * Tamiflu stopped Time Spent With Patient Time with patient: 25 - 35 minutes Subjective Date/time seen: 10/22/24 07:26 Interval history: Interval History: This is a 69 year old female with a past medical history of COPD, osteopenia, asthma, depression, hyperlipidemia, hypertension, GERD, former smoker who presented to the hospital with nausea, vomiting, diarrhea. Patient states she started feeling bad the Thursday after [place] with sinus infection. She called her PCP who prescribed her Doxycycline which caused her to have nausea and vomiting. She called back and they switched her to Cefdinir which she finished the entire course. Her symptoms were still not relieved and she presented to the hospital for further evaluation of her symptoms. She denies any fever, chills, nausea, vomiting, chest pain or shortness of breath. She endorses a sore throat, tight raspy cough, and wheezing. Work up in the hospital included an abd omen/pelvis CT which shown mild right lower lobe pneumonia. Chest x-ray shown mild atelectasis in lingula. Initial labs shown a WBC 6.9, Na+ 136, K+ 3.2, Chl 96, BG ranging 110-179, Lipase and procalcitonin were WNL. UA shown 1+ blood, 2+ leukocytes, 6-10 urine WBC. Respiratory panel was positive for Influenza A. C- diff and Norovirus PCR still pending. Stool culture pending. Patient was given 1L NS, duo-neb, potassium, Solu-Medrol, Rocephin, Azithromycin, and Zofran while in the ER. Subjective: Nursing called and said patient has been slightly confused overnight and this morning she couldn't remember past events from yesterday. She also is complaining of headache today. Labs and cultures reviewed. Review of Systems Review of Systems: All systems reviewed & are unremarkable except as noted in HPI and below Constitutional: Constitutional: Reports as per HPI and Reports no additional constitutional complaints Eyes: Eyes: Reports as per HPI and Reports no additional eye complaints ENT: Reports system reviewed and no additional complaints, except as documented and Reports as per HPI Cardiovascular: Cardiovascular: Reports as per HPI and Reports no additional cardiovascular complaints Respiratory: Respiratory: Reports as per HPI and Reports no additional respiratory complaints Gastrointestinal: Gastrointestinal: Reports as per HPI and Reports no additional gastrointestinal complaints Genitourinary: Genitourinary: Reports no additional female genitourinary complaints and Reports as per HPI Musculoskeletal: Musculoskeletal: Reports no additional musculoskeletal complaints and Reports as per HPI Integumentary/Breasts: Skin/Breast: Reports system reviewed and no additional complaints, except as docu and Reports as per HPI Neurologic: Reports system reviewed and no additional complaints, except as documented and Reports as per HPI Psychiatric: Psychiatric: Reports no additional psychiatric complaints and Reports as per HPI Exam Narrative: General: In no acute distress, well nourished Cardiac: Normal S1 and S2. tachycardia, No murmur, gallops or friction rubs, peripheral pulses intact. Respiratory:Wheezing noted bilaterally with raspy tight cough, currently on room air Gastrointestinal: soft, non-distended, non-tender, normoactive bowel sounds. Reports diarrhea again today : voiding without difficulty. Neuro: Alert and oriented x4 Objective Data Vital Signs Vital Signs: Vital Signs - 24 hr 10/21/24 07:47 10/21/24 07:47 10/21/24 07:57 Temperature Pulse Rate 98 98 95 Respiratory Rate 20 20 20 Blood Pressure Pulse Oximetry 92 Oxygen Delivery Room Air Fraction of Inspired Oxygen 10/21/24 08:00 10/21/24 12:00 10/21/24 14:05 Temperature Pulse Rate 105 H 115 H 87 Respiratory Rate 20 Blood Pressure Pulse Oximetry 92 Oxygen Delivery Room Air Fraction of Inspired Oxygen 10/21/24 14:05 10/21/24 14:17 10/21/24 15:53 Temperature 97.3 F L Pulse Rate 87 100 105 H Respiratory Rate 20 20 20 Blood Pressure 139/63 Pulse Oximetry 92 Oxygen Delivery Fraction of Inspired Oxygen 10/21/24 16:00 10/21/24 19:49 10/21/24 19:49 Temperature Pulse Rate 105 H 99 Respiratory Rate 20 Blood Pressure Pulse Oximetry 92 Oxygen Delivery Room Air Fraction of Inspired Oxygen 10/21/24 19:59 10/21/24 20:00 10/21/24 20:00 Temperature Pulse Rate 102 H 95 Respiratory Rate 20 Blood Pressure Pulse Oximetry Oxygen Delivery Room Air Fraction of Inspired Oxygen 10/21/24 21:02 10/22/24 00:00 10/22/24 01:40 Temperature 97.6 F Pulse Rate 94 86 80 Respiratory Rate 16 16 Blood Pressure 150/68 H Pulse Oximetry 93 Oxygen Delivery Fraction of Inspired Oxygen 10/22/24 01:50 10/22/24 04:00 10/22/24 07:24 Temperature Pulse Rate 83 78 Respiratory Rate 16 Blood Pressure Pulse Oximetry 91 Oxygen Delivery Room Air Fraction of Inspired Oxygen 10/22/24 07:24 Temperature Pulse Rate 98 Respiratory Rate 18 Blood Pressure Pulse Oximetry Oxygen Delivery Fraction of Inspired Oxygen Intake/Output Intake/Output: Intake & Output 10/19/24 10/20/24 10/21/24 10/22/24 23:59 23:59 23:59 23:59 Intake Total 1050 1170 500 Balance 1050 1170 500 Meds/Results Medications: Active Medications Generic Name Dose Route Start Last Admin Trade Name Freq PRN Reason Stop Dose Admin Acetaminophen 650 mg 10/21/24 08:36 Acetaminophen 325 Mg Tablet PO Q4H PRN Mild Pain (1-3) or Fever Albuterol/Ipratropium 3 ml 10/21/24 02:00 10/22/24 07:24 Ipratropium 0.5 Mg/Albuterol Sulfate 2.5 Mg Ampul.Neb 3 Ml INHALATION 3 ml Q6HRT [place] Administration Amlodipine Besylate 5 mg 10/21/24 09:00 10/21/24 08:40 Amlodipine Besylate 5 Mg Tablet PO 5 mg DAILY [place] Administration Atorvastatin Calcium 40 mg 10/21/24 09:00 10/21/24 08:40 Atorvastatin 40 Mg Tablet PO 40 mg DAILY [place] Administration Azithromycin 500 mg 10/21/24 09:00 10/21/24 08:48 Azithromycin 250 Mg Tablet PO 500 mg DAILY [place] Administration Benzocaine 1 lozenge 10/21/24 12:44 Benzocaine/Menthol (*Bkc) 18 Ea Lozenge PO PRN PRN Sore Throat Dextrose 12.5 gm 10/20/24 20:23 Dextrose 50% 25 Gm/50 Ml Syringe IV PUSH PRN PRN Hypoglycemia Protocol Duloxetine HCl 30 mg 10/21/24 09:00 10/21/24 08:40 Duloxetine Hcl 30 Mg Capsule.Dr PO 30 mg DAILY [place] Administration Enoxaparin Sodium 40 mg 10/21/24 09:00 10/21/24 08:39 Enoxaparin 40 Mg/0.4 Ml Syringe SUB-Q 40 mg DAILY [place] Administration Fluticasone Propionate 1 spray 10/21/24 09:00 10/21/24 08:39 Fluticasone Propionate 0.05% Na Spr 16 Gm Btl (*Bk) NASAL 1 spray DAILY [place] Administration Fluticasone/Umeclidinium/Vilanterol 1 puff 10/21/24 08:00 10/21/24 07:53 Fluticasone/Umeclidin/Vilanter 100-62.5-25 Mcg Ellipta INHALATION 1 puff DAILYRT [place] Administration Glucagon 1 mg 10/20/24 20:23 Glucagon For Inj 1 Mg Vial IM PRN PRN Hypoglycemia Protocol Glucose 15 gm 10/20/24 20:23 Glucose Oral Gel 15 Gm Of Glucse In 37.5 Gm Tube PO PRN PRN Hypoglycemia Protocol Ceftriaxone Sodium 1 gm in 50 mls @ 100 mls/hr 10/21/24 21:00 10/21/24 20:21 Rocephin 1 Gm/Ns 50 Ml IVPB 100 mls/hr Q24H [place] Administration Dextrose 1,000 mls @ 100 mls/hr 10/20/24 20:23 Dextrose 5% 1,000 Ml IVPB PRN PRN Hypoglycemia Protocol Irbesartan 300 mg 10/21/24 09:00 10/21/24 08:40 Irbesartan 150 Mg Tablet PO 300 mg DAILY [place] Administration Montelukast Sodium 10 mg 10/21/24 09:00 10/21/24 08:40 Montelukast Sodium 10 Mg Tablet PO 10 mg DAILY [place] Administration Ondansetron HCl 4 mg 10/20/24 23:12 Ondansetron Inj 4 Mg/2 Ml Vial IV PUSH Q6H PRN Nausea And Vomiting Pantoprazole Sodium 40 mg 10/21/24 09:00 10/21/24 08:40 Pantoprazole 40 Mg Tablet PO 40 mg QAM [place] Administration Prednisone 60 mg 10/21/24 08:00 10/21/24 08:40 Prednisone 20 Mg Tablet PO 60 mg DAILY@0800 [place] Administration Radiology Results: ITS Impressions Abdomen/Pelvis CT 10/20/24 14:31 IMPRESSION: 1. Mild right lower lobe pneumonia. Chest X-Ray 10/20/24 14:35 IMPRESSION: 1. Mild atelectasis in lingula. Labs Labs: Laboratory Results - last 24 hr 10/21/24 10/21/24 10/22/24 07:53 10:32 04:43 WBC 7.6 RBC 4.46 Hgb 12.9 Hct 39.8 MCV 89.2 MCH 28.9 MCHC 32.4 RDW 13.3 Plt Count 200 MPV 11.7 H Immature Gran % (Auto) 0.3 Neut % (Auto) 67.1 Lymph % (Auto) 23.2 [place] % (Auto) 9.2 H Eos % (Auto) 0.1 Baso % (Auto) 0.1 L Lymph # (Auto) 1.76 [place] # (Auto) 0.7 H Eos # (Auto) 0.0 Baso # (Auto) 0.0 Abs Immat Gran (auto) 0.02 Absolute Neuts (auto) 5.1 Absolute Nucleated RBC 0.000 Nucleated RBC % 0.0 Sodium 139 Potassium 3.4 Chloride 107 Carbon Dioxide 25 Anion Gap 7 BUN 4 L Creatinine 0.53 L Estim Creat Clear Calc 81 Estimated GFR > 60 Glucose 111 H Calcium 8.6 Magnesium 2.3 Total Bilirubin 0.5 AST 32 ALT 19 Alkaline Phosphatase 70 Total Protein 6.0 L Albumin 3.6 Procalcitonin 0.1 Nasal MRSA (PCR) Not detected C. difficile (PCR) Negative Quality VTE Prophylaxis VTE prophylaxis: pharmacologic ordered
[2024-10-22] MEDS: FLUTICASONE/UMECLIDIN/VILANTER 100-62.5-25 MCG ELLIPTA 1 PUFF INHALATION (07:30)
[2024-10-22] MEDS: IRBESARTAN 150 MG TABLET 300 MG PO (08:24)
[2024-10-22] MEDS: POTASSIUM CHLORIDE 20 MEQ ER TABLET 40 MEQ PO (08:25)
[2024-10-22] MEDS: amLODIPine BESYLATE 5 MG TABLET PO (08:25)
[2024-10-22] MEDS: AZITHROMYCIN 250 MG TABLET 500 MG PO (08:25)
[2024-10-22] MEDS: ATORVASTATIN 40 MG TABLET PO (08:25)
[2024-10-22] MEDS: MONTELUKAST SODIUM 10 MG TABLET PO (08:25)
[2024-10-22] MEDS: ENOXAPARIN 40 MG/0.4 ML SYRINGE SUB-Q (08:25)
[2024-10-22] MEDS: predniSONE 20 MG TABLET 60 MG PO (08:25)
[2024-10-22] MEDS: DULoxetine HCL 30 MG CAPSULE.DR PO (08:25)
[2024-10-22] MEDS: PANTOPRAZOLE 40 MG TABLET PO (08:25)
[2024-10-22] MEDS: FLUTICASONE PROPIONATE 0.05% NA SPR 16 GM BTL (*BKC) 1 SPRAY NASAL (08:26)
[2024-10-22] MEDS: guaiFENesin/DEXTROMETHORPHAN 10 ML UDC PO ×2 (18:41→23:15)
[2024-10-22] MEDS: BENZONATATE 100 MG CAPSULE 200 MG PO (18:41)
[2024-10-23] VITALS: BP 152/79; PULSE 88; PULSE 92; RESP 18; TEMP 36.7; O2SAT 95
[2024-10-23 04:00] VITALS: PULSE 90
[2024-10-23 05:26] LABS: Basophils Percent Auto 0.1 % (0.2-1.2); Eosinophils Percent Auto 0.1 % (0-4.4); Hematocrit 39.9 % (37.0-47.0); Hemoglobin 13.3 g/dL (12.0-15.0); Immature Granulocyte Absolute 0.09 K/mm3 (0.00-0.031); Lymphocytes Absolute Auto 2.55 K/mm3 (0.9-3.2); Lymphocytes Percent Auto 28.1 % (18.3-44.2); Mean Corpuscular HGB Conc 33.3 g/dl (32-36); Mean Corpuscular Hemoglobin 28.5 pg (26-34); Mean Corpuscular Volume 85.6 fl (80-100); Mean Platelet Volume 11.6 fl (7.4-10.4); Monocytes Absolute Auto 0.7 K/mm3 (0.1-0.6); Monocytes Percent Auto 7.8 % (2.6-8.5); Neutrophils Absolute Auto 5.7 K/mm3 (1.3-6.7); Neutrophils Percent Auto 62.9 % (45.5-73.1); Platelet Count Result 242 k/mm3 (150-375); Red Blood Count 4.66 M/mm3 (4.2-5.4); Red Cell Distribution Width 13.4 % (11.5-14.5); White Blood Count 9.1 K/mm3 (4.5-10.0)
[2024-10-23 05:46] LABS: Alanine Aminotransferase 23 U/L (6-35); Albumin Level 3.6 g/dL (3.5-5.1); Alkaline Phosphatase 77 U/L (38-126); Anion Gap 10 mmol/L (4-12); Aspartate Amino Transferase 37 U/L (14-36); Bilirubin,Total 0.5 mg/dL (0.2-1.3); Blood Urea Nitrogen 4 mg/dL (7-17); Calcium 8.5 mg/dL (8.4-10.2); Carbon Dioxide 25 mmol/L (22-30); Chloride 106 mmol/L (98-107); Estimated CRCL calculation 74 ml/min; Estimated Glomerular Filt Rate > 60; Glucose 91 mg/dL (65-110); Magnesium 2.4 mg/dL (1.6-2.3); Potassium 3.3 mmol/L (3.4-5.0); Sodium 141 mmol/L (137-145)
[2024-10-23 05:56] LABS: Procalcitonin 0.1 ng/mL
[2024-10-23] MEDS: guaiFENesin/DEXTROMETHORPHAN 10 ML UDC PO ×2 (06:25→11:45)
[2024-10-23 08:04] VITALS: BP 151/72; PULSE 82; RESP 16; TEMP 36.3; O2SAT 95
[2024-10-23 08:06] VITALS: PULSE 83
[2024-10-23] MEDS: amLODIPine BESYLATE 5 MG TABLET PO (08:06)
[2024-10-23] MEDS: DULoxetine HCL 30 MG CAPSULE.DR PO (08:06)
[2024-10-23] MEDS: IRBESARTAN 150 MG TABLET 300 MG PO (08:06)
[2024-10-23] MEDS: BENZONATATE 100 MG CAPSULE 200 MG PO (08:06)
[2024-10-23] MEDS: MONTELUKAST SODIUM 10 MG TABLET PO (08:06)
[2024-10-23] MEDS: AZITHROMYCIN 250 MG TABLET 500 MG PO (08:06)
[2024-10-23] MEDS: FLUTICASONE PROPIONATE 0.05% NA SPR 16 GM BTL (*BKC) 1 SPRAY NASAL (08:07)
[2024-10-23] MEDS: PANTOPRAZOLE 40 MG TABLET PO (08:07)
[2024-10-23] MEDS: ATORVASTATIN 40 MG TABLET PO (08:07)
[2024-10-23] MEDS: ENOXAPARIN 40 MG/0.4 ML SYRINGE SUB-Q (08:08)
[2024-10-23] MEDS: predniSONE 10 MG TABLET 50 MG PO (08:11)
[2024-10-23 08:49] VITALS: PULSE 91; RESP 20
[2024-10-23] MEDS: FLUTICASONE/UMECLIDIN/VILANTER 100-62.5-25 MCG ELLIPTA 1 PUFF INHALATION (08:49)
[2024-10-23] MEDS: IPRATROPIUM 0.5 MG/ALBUTEROL SULFATE 2.5 MG AMPUL.NEB 3 ML INHALATION (08:49)
--- NOTE | 2024-10-23 09:22 | P.DS_ITS ---
DS: Admitting Diagnosis Discharge Date 10/23/24 Admitting Diagnosis Influenza A Pneumonia UTI Diarrhea hypokalemia HTN coronary artery calcification seen on CAT scan GERD DS: Discharge Diagnosis Discharge Diagnosis (1) Influenza A: Code(s): J10.1 - Influenza due to other identified influenza virus with other respiratory manifestations Status: Acute (2) Pneumonia: Code(s): J18.9 - Pneumonia, unspecified organism Status: Acute (3) UTI (urinary tract infection): Code(s): N39.0 - Urinary tract infection, site not specified Status: Acute (4) Diarrhea: Qualifiers: Diarrhea type: unspecified type Qualified Code(s): R19.7 - Diarrhea, unspecified Code(s): R19.7 - Diarrhea, unspecified Status: Acute (5) Hypokalemia: Code(s): E87.6 - Hypokalemia Status: Acute (6) Essential (primary) hypertension: Code(s): I10 - Essential (primary) hypertension Status: Acute (7) Coronary artery calcification seen on CAT scan: Onset Date: 10/13/23 Code(s): I25.10 - Atherosclerotic heart disease of [place] coronary artery without angina pectoris Status: Acute (8) Gastro-esophageal reflux disease without esophagitis: Code(s): K21.9 - Gastro-esophageal reflux disease without esophagitis Status: Acute (9) Confusion: Code(s): R41.0 - Disorientation, unspecified Status: Acute DS: Summary Hospital Course Reason for hospitalization: Influenza A Pneumonia UTI Diarrhea hypokalemia HTN coronary artery calcification seen on CAT scan GERD Hospital Course: This is a 69 year old female with a past medical history of COPD, osteopenia, asthma, depression, hyperlipidemia, hypertension, GERD, former smoker who presented to the hospital with nausea, vomiting, diarrhea. Patient states she started feeling bad the Thursday after [place] with sinus infection. She called her PCP who prescribed her Doxycycline which caused her to have nausea and vomiting. She called back and they switched her to Cefdinir which she finished the entire course. Her symptoms were still not relieved and she presented to the hospital for further evaluation of her symptoms. She denies any fever, chills, nausea, vomiting, chest pain or shortness of breath. She endorses a sore throat, tight raspy cough, and wheezing. Work up in the hospital included an abdomen/pelvis CT which shown mild right lower lobe pneumonia. Chest x-ray shown mild atelectasis in lingula. Initial labs shown a WBC 6.9, Na+ 136, K+ 3.2, Chl 96, BG ranging 110-179, Lipase and procalcitonin were WNL. UA shown 1+ blood, 2+ leukocytes, 6-10 urine WBC. Respiratory panel was positive for Influenza A. C- diff and Norovirus PCR still pending. Stool culture pending. Patient was given 1L NS, duo-neb, potassium, Solu-Medrol, Rocephin, Azithromycin, and Zofran while in the ER. Stool cultures are still pending however diarrhea subsided. Urine culture showing Klebs aerogenes. She was transitioned over to Levofloxacin to cover both the UTI and the Pneumonia. She is stable for discharge at this time. I did send her home with RX for nebulizer and Duoneb breathing treatments and prednisone taper. Tamiflu was discontinued due to confusion/AMS. Final diagnosis: Influenza A, Pneumonia, acute UTI, hypokalemia Status at Discharge Cognitive/behavioral status at discharge: Alert and oriented x3 Functional status at discharge: independent ambulation Time Spent with Patient Time attestation: Total time spent providing and/or coordinating discharge services: Time spent: Greater than 30 minutes Exam Narrative: General: In no acute distress, well nourished Cardiac: Normal S1 and S2. tachycardia, No murmur, gallops or friction rubs, peripheral pulses intact. Respiratory:Lungs mild wheezing bilaterally, productive cough, currently on room air Gastrointestinal: soft, non-distended, non-tender, normoactive bowel sounds. : voiding without difficulty. Neuro: Alert and oriented x4 DS: Data Data Completed and Pending Completed studies during hospitalization: Head CT Chest x-ray Abdomen/pelvis CT Pending studies at discharge: Stool culture Labs on day of discharge: Labs from last 24 hours 10/23/24 04:37 WBC 9.1 RBC 4.66 Hgb 13.3 Hct 39.9 MCV 85.6 MCH 28.5 MCHC 33.3 RDW 13.4 Plt Count 242 MPV 11.6 H Immature Gran % (Auto) 1.0 H Neut % (Auto) 62.9 Lymph % (Auto) 28.1 [place] % (Auto) 7.8 Eos % (Auto) 0.1 Baso % (Auto) 0.1 L Lymph # (Auto) 2.55 [place] # (Auto) 0.7 H Eos # (Auto) 0.0 Baso # (Auto) 0.0 Abs Immat Gran (auto) 0.09 H Absolute Neuts (auto) 5.7 Absolute Nucleated RBC 0.000 Nucleated RBC % 0.0 Sodium 141 Potassium 3.3 L Chloride 106 Carbon Dioxide 25 Anion Gap 10 BUN 4 L Creatinine 0.59 L Estim Creat Clear Calc 74 Estimated GFR > 60 Glucose 91 Calcium 8.5 Magnesium 2.4 H Total Bilirubin 0.5 AST 37 H ALT 23 Alkaline Phosphatase 77 Total Protein 6.0 L Albumin 3.6 Procalcitonin 0.1 Procedures/Treatments: none Discharge Plan Discharge Attending physician on discharge: Rajwinder Summers Discharging Clinician: Mari Howe Anticipated Discharge Date/Time: 10/23/24 09:13 Patient Disposition: Home, Self-Care Activity: as tolerated Diet: as tolerated Discharge Instructions: * Finish all of your antibiotic as prescribed even if you are feeling better * Finish Steroid taper * Follow up with PCP in 1 week * You have been prescribed a nebulizer with accessories along with Duo-neb breathing treatments. You can continue to use this as needed for shortness of breath or Wheezing Patient Instructions: Antibiotic Form Patient Language: [place] Stand Alone Forms: General Discharge Information Follow-up/Referrals: En Muñiz MD [Primary Care Provider] - 1 Week Discharge Medications: New (DME) nebulizer and compressor Device See Rx Instructions .Route Qty: 1 0RF Rx Instructions: As directed (DME) nebulizer accessories Kit See Rx Instructions .Route Qty: 1 0RF Rx Instructions: As directed levofloxacin 750 mg tablet 750 mg PO DAILY Qty: 5 0RF prednisone 10 mg tablet 10 mg PO DIRECTED Qty: 30 0RF Rx Instructions: see taper instructions Take 40 mg (4 tabs) for next 3 days starting tomorrow, Then decrease to 30 mg (3 tabs) for 3 days, Then decrease to 20mg (2 tabs) for 3 days, Then decrease to 10 mg ( 1 tablet) for next 3 days, Then discontinue use benzonatate 100 mg Capsule 200 mg PO TID Qty: 30 0RF ipratropium-albuterol 0.5 mg-3 mg(2.5 mg base)/3 mL solution for nebulization 3 ml inhalation Q6H PRN (Reason: shortness of breath) Qty: 90 0RF Continued Alpha Brain 1 cap PO DAILY B Complex Plus Vitamin C 1 tab-cap PO DAILY fluticasone propionate [Flonase Allergy Relief] 50 mcg/actuation spray,suspension 1 spray intranasal DAILY Qty: 16 0RF Rx Instructions: administer into each nostril Breztri Aerosphere 160-9-4.8 mcg/actuation HFA aerosol inhaler 2 inh inhalation BID Patient Comments: Samples given 09/26/2024. atorvastatin 40 mg tablet 40 mg PO DAILY Qty: 30 5RF montelukast 10 mg tablet 10 mg PO DAILY Qty: 90 3RF amlodipine 5 mg tablet 5 mg PO DAILY Qty: 100 3RF duloxetine [Cymbalta] 30 mg capsule,delayed release(DR/EC) 30 mg PO DAILY Qty: 100 3RF irbesartan 300 mg tablet 300 mg PO DAILY Qty: 100 3RF pantoprazole [Protonix] 40 mg tablet,delayed release (DR/EC) 40 mg PO QAM Qty: 90 3RF Discontinued amoxicillin-pot clavulanate [Augmentin] 500-125 mg tablet 1 tablet PO Q12H Qty: 20 0RF Date of admission: 10/22/24 11:57 Primary Care Provider: En Muñiz Admitting Provider: Rajwinder Summers Attending physician on admission: Mari Howe Condition: Improved Quality VTE Prophylaxis VTE prophylaxis: pharmacologic ordered Hospitalist MIPS Heart Failure (Exclusion) Patient has history of Heart Transplant or Left Ventricular Assistive Device?: No IF YES, STOP HERE Heart Failure (Qualifier) Patient has current or prior documentation of LVEF less than or equal to 40%, or mod/servere depressed LVSF?: No IF NO, STOP HERE
[2024-10-23] MEDS: POTASSIUM CHLORIDE 20 MEQ ER TABLET 40 MEQ PO (09:52)
[2024-10-23] MEDS: levoFLOXacin 750 MG TABLET PO (09:53)
[2024-10-23 12:00] VITALS: PULSE 94
[2024-10-28 15:13] LABS: Norovirus RNA PCR, Stool NOT DETECTED
== END 2024-10-23 14:13 | disposition home or self-care (01) | DRG 194 ==
LOC: ANHED 17:58 → ANH2MED 21:28
PROVIDERS: Nurse Practitioner; Registered Nurse; Admitting Provider Internal Medicine; Emergency Provider Physician Assistant; PCP Family Medicine; Visit Provider Nurse Practitioner Acute Care
DX: J10.00 Influenza due to other identified influenza virus with unspecified type of pneumonia (principal); J44.0 Chronic obstructive pulmonary disease with (acute) lower respiratory infection; N39.0 Urinary tract infection, site not specified; E87.6 Hypokalemia; I10 Essential (primary) hypertension; I25.10 Atherosclerotic heart disease of native coronary artery without angina pectoris; K21.9 Gastro-esophageal reflux disease without esophagitis; M85.80 Other specified disorders of bone density and structure, unspecified site; E78.5 Hyperlipidemia, unspecified; B96.89 Other specified bacterial agents as the cause of diseases classified elsewhere; E66.9 Obesity, unspecified; E78.2 Mixed hyperlipidemia; Z87.891 Personal history of nicotine dependence; Z90.49 Acquired absence of other specified parts of digestive tract; Z90.710 Acquired absence of both cervix and uterus
CPT/HCPCS: 36415; 70450; 71046; 74176; 80053; 81001; 82948; 83690; 83735; 84145; 85025; 87045; 87086; 87186; 87427; 87449; 87493; 87637; 87641; 87798; 94640; 96361; 96365; 96367; 96375; 96376; 99285; A9270; G0378; J0456; J0696; J1650; J2919; J7030; J7512

== ENCOUNTER 2024-12-22 10:41 | Outpatient (CLI) | payer MEDICARE, SELFPAY ==
[2024-12-22 11:21] LABS: Basophils Absolute Auto 0.1 K/mm3 (0.0-0.1); Basophils Percent Auto 1.3 % (0.2-1.2); Eosinophils Absolute Auto 0.1 K/mm3 (0-0.3); Hemoglobin 15.9 g/dL (12.0-15.0); Immature Granulocyte Absolute 0.02 K/mm3 (0.00-0.031); Immature Granulocyte Percent A 0.3 % (0-0.5); Lymphocytes Absolute Auto 2.76 K/mm3 (0.9-3.2); Mean Corpuscular HGB Conc 33.1 g/dl (32-36); Mean Corpuscular Volume 87.4 fl (80-100); Mean Platelet Volume 11.5 fl (7.4-10.4); Monocytes Absolute Auto 0.6 K/mm3 (0.1-0.6); Monocytes Percent Auto 8.1 % (2.6-8.5); Neutrophils Absolute Auto 3.6 K/mm3 (1.3-6.7); Neutrophils Percent Auto 50.3 % (45.5-73.1); Platelet Count Result 269 k/mm3 (150-375); Red Blood Count 5.49 M/mm3 (4.2-5.4); White Blood Count 7.1 K/mm3 (4.5-10.0)
[2024-12-22 11:38] LABS: Alanine Aminotransferase 16 U/L (6-35); Albumin Level 4.2 g/dL (3.5-5.1); Alkaline Phosphatase 86 U/L (38-126); Anion Gap 7 mmol/L (4-12); Aspartate Amino Transferase 21 U/L (14-36); Bilirubin,Total 0.6 mg/dL (0.2-1.3); Blood Urea Nitrogen 14 mg/dL (7-17); Calcium 9.4 mg/dL (8.4-10.2); Carbon Dioxide 30 mmol/L (22-30); Chloride 104 mmol/L (98-107); Cholesterol 236 mg/dL (0-200); Estimated Glomerular Filt Rate > 60; Glucose 100 mg/dL (65-110); HDL Direct 59 mg/dL; Potassium 3.7 mmol/L (3.4-5.0); Sodium 141 mmol/L (137-145); Triglycerides 137 mg/dL (<150)
[2024-12-22 11:49] LABS: LDL Cholesterol Direct 132 mg/dL
--- OUTSIDE RECORDS SUMMARY | 2024-12-22 11:49 | XMS_ITS | Continuity of Care Document ---
Author Organization [facility] Address [address] [place] [address] Phone Care Team Providers Care Corporate Tutor Name Role Phone Tai Eli MD, FACS Unavailable Unavailab le Advance Directives Directive Yes / No Effective Date File Name No Information Encounters Encounter Description Practice Location Reason(s) For Visit Diagnoses Date Provider Providers Copied on Encounter Merged with [facility], [address] [place], [place], [id number], [place] tel:[phone] [address] [facility] [address] No Information Sep- 4-200 0 Sreedhar Lujan. [address] [address], [address], [place], [place], [id number], [place]. tel:[phone] Family History Family Member Type Diagnosis Age At Onset No Information Payers Payer name Insurance type Covered republican ID Authoriza tinilam(s) [employer] CI [id number] Social History Type Description Quantity Date Captured [...]
--- OUTSIDE RECORDS SUMMARY | 2024-12-22 11:49 | XMS_ITS | Data Portability ---
Author Organization [facility] Address [address] [place] [address] [place] [address] Care Team Providers Care Travel Money Advisor Name Role Phone ROSENDA LYNN Primary Care [...] have any questions, please contact me at [phone].Thank you,Monika, Referral's 2021 022 sheila [email or web address] [facility], [address], [address], [place], [address], 13:13:47 Procedures None recorded. Surgeries None recorded. Imaging MAMMO, screening, bilateral [address] [facility], [address], [address], [place], [address], 3 12:36:50 DEXA, axial skeleton + vertebral fracture assessment 2022 023 [facility], [address], [address], [place], [address], 4 10:32:00 DEXA, axial skeleton + vertebral fracture assessment 2021 022 [facility], [address], [address], [place], [address], 2 14:43:22 Medication Orders None recorded. Patient TargetsNo targets recorded. Patient InstructionsNo instructions recorded. 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 Screening ColonoscopyPlease refer this patient to Gastroenterology in the patients insurance network.Attached are the patients demographics and most recent office visit notes.If you have any questions, please contact me at [phone].Thank you,Rosario Frank's Referring Physician: Riana Colon, TANK OFFICER, Encounter Date: 05/01/2022 Results Created Date Observation Date Name Description Value Unit Range Abnormal Flag Note LastModifiedBy Organization Detail LastModifiedTime 07/18/2007/17/2022 MAMMO , scree vikas, bilat eral No observ ation record ed. [address], [place], [address], 07/23/2022 21:43:53 Result Notes None recorded. Problems Name Problem SNOMED Code Status Onset Date Resolution Date Notes Provider Name and Address Organization Details Recorded Time Screenin g for malignan t neoplasm of rectum Completed 201804/18/2022 Encounter for screening for malignant neoplasm of rectum;Pr actice ID: 0001 Mari Angelo [facility] 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 2 13:05:[address] Concept Completed 201704/18/2022 Encntr for general adult medical exam w/o abnormal findings; Practice ID: 0001 Mari betancourt [facility] 2 13:05:29 Vaginola bial hernia Completed 201604/18/2022 Other specified noninflam matory disorders of vagina;Pr actice ID: 0001 Mari betancourt [facility] 2 13:05:29 Elevated blood-pr essure reading without diagnosi s of hyperten ruma [id number] Completed 201604/18/2022 Elevated blood-pre ssure reading, w/o diagnosis of htn;Pract ice ID: 0001 Mari betancourt [facility] 2 13:05:29 Acute vaginiti s [id number] Completed 201604/18/2022 Acute vaginitis ;Practice ID: 0001 Mari betancourt [facility] 2 13:05:29 Screenin g for malignan t neoplasm of cervix Completed 201104/18/2022 Pap Smear;Pra ctice ID: 0001 Mari betancourt [facility] 2 13:05:29 Adult health examinat ion Completed 201204/18/2022 Routine general medical examinati on at a health care facility; Practice ID: 0001 Mari betancourt [facility] 2 13:05:29 Speciali zed medical examinat ion Completed 201204/18/2022 Routine gynecolog ical examinati on;Practi ce ID: 0001 Mari betancourt [facility] 2 13:05:29 Vaginiti s and vulvovag initis Completed 201404/18/2022 Vaginitis and vulvovagi nitis, unspecifi ed;Practi ce ID: 0001 Mari Angelo [facility] 2 13:05:29 Menopaus al symptom [id number] Completed 201404/18/2022 Menopausa l or female climacter ic states;Pr actice ID: 0001 Mari Angelo [facility] 2 13:05:29 Spasm [id number] Completed 201404/18/2022 Spasm of muscle;Pr actice ID: 0001 Mari Angelo [facility] 2 13:05:29 Carbuncl e of groin [id number] Completed 201504/18/2022 Carbuncle of groin;Pra ctice ID: 0001 Mari Angelo [facility] 2 13:05:[address] Concept Completed 201504/18/2022 Well woman check w/ abnormal finding;R ecorded Elsewhere : No Locati on: [facility] So urce: EHR Chron ic: N Practic e ID: 0001 Bill able Time: 01:00:00 PM Mari Angelo [facility] 2 13:05:29 Carbuncl e [id number] Completed 201504/18/2022 Carbuncle ;Recorded Elsewhere : No Locati on: [facility] So urce: EHR Chron ic: N Practic e ID: 0001 Bill able Time: 01:00:00 PM Mari Angelo [facility] 2 13:05:29 Screenin g for malignan t neoplasm of colon Completed 201004/18/2022 Special screening for malignant neoplasms , colon;Pra ctice ID: 0001 Mari Angelo [facility] 13:05:29 Problem Notes None recorded. Procedures Surgical History Date Name Laterality Status Provider Name and Address Organization Details Recorded Time 022 Date of Last Mammogram completed [facility] 05/05/2023 12:20:47 018 Date of Last Pap Smear completed [facility] 05/05/2023 12:20:01 016 Colonoscopy completed [facility] 05/01/2022 14:51:41 010 Colonoscopy completed Riana Colon [facility]- [address], [place], [address], [facility] 05/05/2023 12:42:59 009 [facility] 05/01/2022 14:51:25 008 [facility] 05/01/2022 14:51:14 Imaging Results Imaging Date Name Status LastModified by Organiz ation Details LastModified Time 07/17/2022 MAMMO, screening, bilateral completed [address], [place], [address], 07/23/2022 21:43:53 Procedure Notes None recorded. Medical Equipment None Reported. Allergies Allergen ID Allergen Name Allergen Category Reaction Reaction Severity Criticality Documentation Date Start Date Code Code System Note Provider Name and Address Organization Details Recorded Time 36523 morphine medicatio n Not available Not available [...] Prescrib ed Elsewher e: Yes [facility] By: maritza Maria ncounter DateTime : [...] Prescrib ed Elsewher e: No [facility]at [facility] By: emmett colunga DateTime : [...] Prescrib ed Elsewher e: Yes [facility] By: maritza chaconunter DateTime : 04/13/20 19 01:30:00 PM Not Available Not Available Not Available Vitamin B-12 50 mcg tablet 05/05 completed Prescrib ed Elsewher e: Yes Loca [facility]ion: [facility] By: maritza chaconunter DateTime : 04/13/20 19 01:30:00 PM Not Available Not Available Not Available Metrogel Vaginal 0.75 % (37.5 mg/5 gram) insert 1 applicat orful by vaginal route every day at bedtime for 5 nights 06/24 completed Prescrib ed Elsewher e: No Locat ion: Bernadette maria [facility] odify By: lani Smith r DateTime : 10/23/19 17 09:01:39 AM Not Available Not Available Not Available Prilosec 10 mg capsule,d elayed release take 2 capsule by oral route every day before a meal 04/13 completed Prescrib ed Elsewher e: Yes Loca tion: Bernadette maria [facility] odify By: maritza Maria ncounter DateTime : 06/24/20 17 03:30:00 PM Not Available Not Available Not Available betametha sone valerate 0.1 % topical cream apply by topical route every day a thin layer to the affected area(s) 05/30 completed Prescrib ed Elsewher e: No Locat ion: Bernadette maria [facility] odify By: talisha Chaney nter DateTime : 12/03/19 18 01:00:00 PM Not Available Not Available Not Available pantopraz ole 40 mg tablet,de layed release active Not Available Not Available Not Available Cipro 500 mg tablet take 1 tablet by oral route every 12 hours 10/21 completed Prescrib ed Elsewher e: No Locat ion: Bernadette maria [facility] odify By: lani Smith r DateTime : 11/19/19 16 01:00:00 PM Not Available Not Available Not Available Neurontin 100 mg capsule take 1 capsule by oral route 3 times every day 11/19 completed Prescrib ed Elsewher e: No Locat ion: Bernadette maria [facility] odify By: abeba Maria ncounter DateTime : 05/24/20 15 11:15:00 AM Not Available Not Available Not Available monteluka st 10 mg tablet active Not Available Not Available Not Available irbesarta n 150 mg tablet take 1 tablet by oral route every day 05/01 completed Prescrib ed Elsewher e: Yes Loca tion: Bernadette maria [facility] odify By: maritza Maria ncounter DateTime : 04/13/20 19 01:30:00 PM Not Available Not Available Not Available levofloxa yosvany 500 mg tablet TAKE 1 TABLET BY MOUTH DAILY 05/05 completed Not Available Not Available Not Available Vitamin D2 1,250 mcg (50,000 unit) capsule take 1 capsule (68185GP ITS) by oral route every week 11/16 completed Prescrib ed Elsewher e: No Locat ion: [facility] odify By: emmett colunga DateTime : 06/07/20 [...] Prescrib ed Elsewher e: No Locat ion: [facility] odify By: abeba bryan DateTime : 06/13/20 15 08:20:53 AM Not Available Not Available Not Available magnesium 200 mg tablet 05/05 completed Prescrib ed Elsewher e: Yes Loca tion: [facility] odify By: maritza bryan DateTime : 04/13/20 19 01:30:00 PM Not Available Not Available Not Available Singulair 4 mg oral granules in packet 10/21 completed Prescrib ed Elsewher e: Yes Loca tion: [facility] odify By: lani schuler DateTime : 05/11/20 13 01:30:00 PM Not Available Not Available Not Available duloxetin e 30 mg capsule,d elayed release active Not Available Not Available Not Available Acid Relief (cimetidi ne) 200 mg tablet take 1 tablet by oral route 2 times every day 30 minutes before meals 05/11 completed Prescrib ed Elsewher e: Yes Loca tion: [facility] odify By: nicolás chaconuntjaleel DateTime : 02/11/20 12 03:00:00 PM Not Available Not Available Not Available Symbicort 160 mcg-4.5 mcg/actua tion HFA aerosol inhaler inhale 2 puff by inhalati on route 2 times every day in the morning and evening 2018 active Prescrib rober Retana e: Yes Loca tion: Bernadette maria [facility] odify By: maritza chaconunter DateTime [...] Updated DateTime 05/01/2022 157.48 cm 32.4 kg/m2 26141.85 g aMri Angelo [facility] 05/01/2022 14:44:53 Date Recorded Systolic blood pressure Diastolic blood pressure Provider Name and Address Organization Details Last Updated DateTime 05/01/2022 132 mm[Hg] 80 mm[Hg] Riana Colon, [facility]- [address], [place], [address], [facility] 05/01/2022 15:09:23 Date Recorded Body height Body mass index (BMI) Body weight Systolic blood pressure Diastolic blood pressure Provider Name and Address Organization Details Last Updated DateTime 05/05/2023 157.48 cm 33.8 kg/m2 99205.59 g 119 mm[Hg] 75 mm[Hg] Rosette Matute [facility] 12:18:55 Social History Question Answer Notes LastModified by Organizat ion Details LastModified Time Tobacco Smoking Status Former Smoker Mari Angelo [facility] 05/01/2022 14:50:46 What Is Your [...] Anxious, Or Unable To Sleep At Night)? [id number] Information not available 05/01/2022 Do You Use [...] SNOMED-CT Code Diagnosis ICD10 Code Diagnosis Note [id number] Riana Colon , [facility] [address] [address] 05/01/2022 14:25:42 05/01/2022 15:13:55 Gynecologic examination 31356865 Z01.419 Take Calcium with Vitamin D 12-1500mg daily. Do monthly self breast exams. It is advised to get annual flu shot in the fall and she could obtain at [facility] or [facility] clinic. If you haven't received the Tdap [...] Labs UTD PCPMammo ordered Postmenopa usal osteopenia 882504940 M85.80 Screening for malignant neoplasm of colon 935950231 Z12.11 [id number] Riana Colon [facility] [address] [address] 05/05/2023 11:48:09 05/05/2023 12:44:39 Gynecologic examination 01527973 Z01.419 Take Calcium with Vitamin D 12-1500mg daily. Do monthly self breast exams. It is advised to get annual flu shot in the fall and she could obtain at [facility] or [facility] care clinic. If you haven't [...] Labs UTD PCPMammo ordered Screening mammography 24 676164 Z12.31 Postmenopa usal osteopenia 335612579 M85.80 Health Concerns Section Related Observation LastModified by Organization Detai ls LastModified Time None Recorded Concern Status LastModified by Organization Details LastModified Time None Recorded Advance Directives Directive None Recorded Payers Encounter Date Sequence Insurance Name Policy Number Policy Small[place] Covered Member ID Smallwood Member ID Guarantor Name 05/01/2022 1 [facility] (MEDICARE REPLACEMENT/A DVANTAGE - HMO) [id number] Shefali Wyman [id number] Shefali Wyman 05/05/2023 1 [facility] (MEDICARE REPLACEMENT/A DVANTAGE - HMO) [id number] Shefali Wyman [id number] Shefali Wyman Notes Date Note Type Note Provider Name and Address Organization Details Recorded Time 05/01/2022 text/html 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 05/05/2023 12:44:31 OBGyn Episode Ob Episode Information Episode Created Date Number of Fetuses Patient Bloodtype Patient rh Status Prepregnancy Weight lbs Domestic Partner Domestic Partner Phone Father Name Coupon Manifest Clerk Status 05/01/20 22 1 CLOSED Fetus Data First Name Last Name Admitted to NICU Weight (g) Sex Living Outcome Pediatric Complications Fetus ID Race Codes Race Delivery Type F [id number] Vaginal Delivery Bipin Calculation Initial Bipin Date [...] Domestic Partner Domestic Partner Phone Father Name Coupon Manifest Clerk Status 05/01/20 22 1 CLOSED Fetus Data First Name Last Name Admitted to NICU Weight (g) Sex Living Outcome Pediatric Complications Fetus ID Race Codes Race Delivery Type M [id number] Vaginal Delivery Bipin Calculation Initial Bipin Date [...]
--- OUTSIDE RECORDS SUMMARY | 2024-12-22 11:49 | XMS_ITS | Clinical Summary ---
Author Organization [facility] Address [address] [place] [address] Care Team Providers Care Grocery Specialist Name Role Phone En Muñiz MD Primary Care Provider [phone] Source Comments [facility],non-owned Affiliates and Associated Physician Practices is amultiple site organization consisting of ambulatory clinics and hospital sitesin [place], [place], [place] and [place]. This disclosure is being madepursuant to the Care Everywhere program and may not contain all information available regarding this patient. Last updated 18.[facility] Allergies Active Allergy Reactions Criticality Noted Date [...] 10 mg by mouth once daily Active Uzrqtbmepsxqd-AT-LP-AP AP (MUCINEX SINUS-MAX) 1-65-675-325 MG Active Social History Tobacco Use Types [...] 62 06/14/2019 12:15 PM CDT Temperature 36.5 C (97.7 F) 06/14/2019 12:15 PM CDT Respiratory Rate 16 06/14/2019 12:15 PM CDT [...] to complete this topic MENINGOCOCCAL (Group B) VACC INE SHARED DECISION-MAKING Aged Out No longer eligibl e based on patient's age to complete this topic MENINGOCOCCAL GROUPS A/C/Y/W VACCINE Aged Out No longer eligible b ased on patient's age to complete this topic Care Teams Grocery Specialist Relationship Specialty Start Date End Date En Muñiz MD PCP - General Family Medicine 06/14/19
[2024-12-22 12:08] LABS: Thyroid Stimulating Hormone 0.983 uIU/mL (0.465-4.680)
[2024-12-26 14:23] LABS: Vitamin D 1,25 (OH)2 Total 71 pg/mL (18-72); Vitamin D2 1,25 (OH)2 <8 pg/mL; Vitamin D3 1,25 (OH)2 71 pg/mL
== END 2024-12-22 10:42 | disposition home or self-care (01) ==
LOC: ANHLAB 10:42
PROVIDERS: PCP Family Medicine; Visit Provider Family Medicine
DX: D51.9 Vitamin B12 deficiency anemia, unspecified (principal); E55.9 Vitamin D deficiency, unspecified; I10 Essential (primary) hypertension; E78.2 Mixed hyperlipidemia
CPT/HCPCS: 36415; 80048; 80061; 80076; 82607; 82652; 84443; 85025

== ENCOUNTER 2025-07-05 14:40 | Outpatient (CLI) | payer MEDICARE, SELFPAY ==
--- NOTE | ~2025-07-05 | XR_ITS ---
EXAMINATION: XR abdomen/kub 1V, 07/05/2025 14:53 CDT HISTORY: R19.7 - Diarrhea, unspecified COMPARISON: No comparisons available. Technique: 3 view. Findings: Moderate fecal content, no dilated bowel loops No free air. No abnormal calcifications No acute osseous abnormality. Impression: 1. No acute abnormality. Reviewed, dictated and finalized at location P. Impression: 1. No acute abnormality.
== END 2025-07-05 14:41 | disposition home or self-care (01) ==
PROVIDERS: PCP Family Medicine; Visit Provider Nurse Practitioner Family
DX: R19.7 Diarrhea, unspecified (principal); R19.4 Change in bowel habit
CPT/HCPCS: 74018

== ENCOUNTER 2025-08-31 00:41 | Day surgery (SDC) | payer MEDICARE, SELFPAY ==
[2025-08-15 09:01] VITALS: BMI 29.2
--- OUTSIDE RECORDS SUMMARY | 2025-08-31 00:44 | XMS_ITS | Data Portability ---
Author Organization [facility] Address [address] [place] [address] Care Team Providers Care Maintenance Tech Name Role Phone ROSENDA LYNN Primary Care Provider [phone] Assessment Encounter Date Assessment Date Assessment LastModified by Organization Details LastModified Time 05/01/2022 05/01/2022 Annual gynecological exam performed. Patient will come back in a year unless there are new symptoms. Not available 05/01/2022 14:43:55 05/05/2023 05/05/2023 Annual gynecological exam performed. Patient will come back in a year unless there are new symptoms. Not available 05/05/2023 12:18:34 05/08/2025 05/08/2025 Annual gynecological exam performed. Patient will come back in a year unless there are new symptoms. [email or web address] Not available 05/08/2025 11:03:20 Plan of Treatment Reminders Order Date Submit Date Provider Last Modified By Organization Details Last Modified Time Details Appointments None recorded. Lab pap, IG + HR HPV - HPV regardless but if HPV is positive need subtyping 16,18/45 2024 025 [facility] (Lab), [address], [place], [address], 5 13:53:34 Referral gastroenter ologist referral 2024 025 [facility] - Gastroenterol ogharinder, [address], [address], [place], [address], 5 04:04:57 gastroenter ologist referral - Screening Colonoscopy Please refer this patient to Gastroenter ology in the patients insurance network. Attached are the patients demographic s and most recent office visit notes. If you have any questions, please contact me at [phone]. Thank you, Monika, Referral's [address] - Gastroenterol ogy, [address], [address], [place], [address], 2 13:13:47 Procedures None recorded. Surgeries None recorded. Imaging DEXA, axial skeleton + vertebral fracture assessment 2024 025 [facility], [address], [address], [place], [address], 5 04:04:54 MAMMO, screening, digital, bilateral 2024 025 [facility], [address], [address], [place], [address], 5 04:13:29 MAMMO, screening, bilateral [address], [address], [address], [place], [address], 3 12:36:50 DEXA, axial skeleton + vertebral fracture assessment [address], [address], [address], [place], [address], 4 10:32:00 DEXA, axial skeleton + vertebral fracture assessment [address], [address], [address], [place], [address], 2 14:43:22 Medication Orders None recorded. Patient TargetsNo targets recorded. Patient InstructionsNo instructions recorded. 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 Screening ColonoscopyPlease refer this patient to Gastroenterology in the patients insurance network.Attached are the patients demographics and most recent office visit notes.If you have any questions, please contact me at [phone].Thank you,Monika Referral's Referring Physician: Riana Colon, CRIMINAL INTELLIGENCE ANALYST, Encounter Date: 05/01/2022 Electrical Design Engineer Referral for Diarrhea Referring Physician: Alyson Roca, CRIMINAL INTELLIGENCE ANALYST, Encounter Date: 05/08/2025 Results Created Date Observation Date Name Description Value Unit Range Abnormal Flag Note LastModifiedBy Organization Detail LastModifiedTime 05/08/20 25 05/08/2025 IMAGE GUIDE D PAP AND HPV REGAR DLESS image guided Pap, HPV regardless of Pap result SEE RESULT S BELOW CASE REPOR T: Cytol ogy Gynec ologi dougie Repor t Case: [id number] Autho solitario Provi valentin: Alyson Roca, LAZ Gomez cted: 05/08 1316 Order ing Locat ion: [place] [facility] Recei carmelo: 05/09 0331 First Scree n: Peggy David, CT Speci men: Screcrow diamondg Pap - Image d, Vagin a STATE MENT OF ADEQU ACY: Satis facto ry for evalu ation ----- ----- ----- ----- ----- ----- ----- ----- ----- ----- ----- ----- ----- ----- ----- ----- ----- ---- FINAL DIAGN OSIS: Negat osmar for Intra epith johnnie buitrago or Roland liu (NIL) . Atrop hic shaan hooper rn. Elect gertrudis lee d by Peggy David, CT on 2024 at 1249 CDT ----- ----- ----- ----- ----- ----- ----- ----- ----- ----- ----- ----- ----- ----- ----- ----- ----- ---- HPV RESUL TS: HPV mRNA E6/E7 : No HPV mRNA Detec chandu NOTE: This high risk HPV mRNA assay detec ts fourt een high- risk HPV types (16, 18, 31, 33, 35, 39, 45, 51, 52, 56, 58, 59, 66, 68) witho ut diffe renti ation . COMME NT: This speci men was revie wed by a Cytot echno logis t and/o r Patho logis t (as indic ated in this repor t) after evalu ation using the Thinp rep Imagi ng Syste m. CLINI DOUGIE INFOR MATIO N: Menst rual Statu s: LMP (if appli cable ): Clini dougie Histo ry/Pr eviou s Pap: Type of Neopl kevin (if appli cable ): Signi fican t Clini dougie Findi ngs: Other Histo ry: Hormo yani (if appli cable ): PAP EDUCA ABIMBOLA L NOTE: The Pap Test is a scree vikas test with an inher ent false negat osmar rate. Liqui d-bas ed sampl ing may decre ase, but will not elimi jose angel, false negat osmar resul ts. A negat osmar resul t does not precl ude the prese nce and/o r devel opmen t of disea se, since the prese nce of abnor mal cells in the sampl e depen ds on the locat ion of the lesio n and sampl ing techn ique. Osvaldo nued regul ar scree vikas is the best metho d of cance r preve ntion . If repor chandu cytol ogic findi ng do not corre late with physi dougie and/o r histo rical findi ngs, formerly [facility] er inves tigat ion is recom kevin d, as clini kelly gore nted. Not Available [facility] (Lab) [address], [place], [address], 05/10/2025 13:53:34 07/18/2007/17/2022 MAMMO , scree vikas, bilat eral No observ ation record ed. [address], [place], [address], 07/23/2022 21:43:53 Result Notes None recorded. Problems Name Problem SNOMED Code Status Onset Date Resolution Date Notes Provider Name and Address Organization Details Recorded Time Screenin g for malignan t neoplasm of colon Completed 201004/18/2022 Special screening for malignant neoplasms , colon;Pra ctice ID: 0001 Mari Angelo [facility] 2 13:05:29 Screenin g for malignan t neoplasm of cervix Completed 201104/18/2022 Pap Smear;Pra ctice ID: 0001 Mari Angelo [facility] 2 13:05:29 Adult health examinat ion Completed 201204/18/2022 Routine general medical examinati on at a health care facility; Practice ID: 0001 Mari Angelo [facility] 2 13:05:29 Speciali zed medical examinat ion Completed 201204/18/2022 Routine gynecolog ical examinati on;Practi ce ID: 0001 Mari Angelo [facility] 2 13:05:29 Vaginiti s and vulvovag initis Completed 201404/18/2022 Vaginitis and vulvovagi nitis, unspecifi ed;Practi ce ID: 0001 Mari Angelo [facility] 2 13:05:29 Menopaus al symptom [id number] Completed 201404/18/2022 Menopausa l or female climacter ic states;Pr actice ID: 0001 Mariharinder betancourt, [facility] 2 13:05:29 Spasm [id number] Completed 201404/18/2022 Spasm of muscle;Pr actice ID: 0001 Mari betancourt, [facility] 2 13:05:29 Carbuncl e of groin [id number] Completed 201504/18/2022 Carbuncle of groin;Pra ctice ID: 0001 Mari betancourt, [facility] 2 13:05:[address] Concept Completed 201504/18/2022 Well woman check w/ abnormal finding;R ecorded Elsewhere : No Locati on: [facility] So urce: EHR Chron ic: N Practic e ID: 0001 Bill able Time: 01:00:00 PM [facility] 2 13:05:29 Carbuncl e [id number] Completed 201504/18/2022 Carbuncle ;Recorded Elsewhere : No Locati on: [facility] So urce: EHR Chron ic: N Practic e ID: 0001 Bill able Time: 01:00:00 PM Mari betancourt [facility] 2 13:05:29 Elevated blood-pr essure reading without diagnosi s of hyperten ruma [id number] Completed 201604/18/2022 Elevated blood-pre ssure reading, w/o diagnosis of htn;Pract ice ID: 0001 Mari betancourt, [facility] 2 13:05:29 Acute vaginiti s [id number] Completed 201604/18/2022 Acute vaginitis ;Practice ID: 0001 Mari betancourt [facility] 2 13:05:29 Vaginola bial hernia Completed 201604/18/2022 Other specified noninflam matory disorders of vagina;Pr actice ID: 0001 Mari betancourt, [facility] 2 13:05:[address] Concept Completed 201704/18/2022 Encntr for general adult medical exam w/o abnormal findings; Practice ID: 0001 Mari betancourt [facility] 2 13:05:29 Screenin g for malignan t neoplasm of rectum Completed 201804/18/2022 Encounter for screening for malignant neoplasm of rectum;Pr actice ID: 0001 Mari betancourt [facility] 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 2 13:05:29 Problem Notes None recorded. Procedures Surgical History Date Name Laterality Status Provider Name and Address Organization Details Recorded Time 022 Date of Last Mammogram completed Rosette [facility] 05/05/2023 12:20:47 018 Date of Last Pap Smear completed Rosette [facility] 05/05/2023 12:20:01 016 Colonoscopy completed [facility] 05/01/2022 14:51:41 010 Colonoscopy completed Riana Colon LAZ- [address], [place], [address], [facility] 05/05/2023 12:42:59 009 [facility] 05/01/2022 14:51:25 008 [facility] 05/01/2022 14:51:14 Imaging Results None recorded. Procedure Notes None recorded. Medical Equipment None Reported. Allergies Allergen ID Allergen Name Allergen Category Reaction Reaction Severity Criticality Documentation Date Start Date Code Code System Note Provider Name and Address Organization Details Recorded Time 26462 morphine medicatio n Not available Not available Not available 09/14/2020 7052 RxNorm Comme nt: [facility]; Not Available [facility] 0 14:14:53 Medications Name Sig Start Date Stop Date Status Note LastModified by Organization Details LastModified Time cyclobenz aprine 10 mg tablet TAKE 1 TABLET BY MOUTH THREE TIMES DAILY NEEDED FOR MUSCLE SPASM 05/05 completed Not Available Not Available Not Available ipratropi um 0.5 mg-albute rol 3 mg (2.5 mg base)/3 mL nebulizat ion soln USE 3 ML VIA NEBULIZE R EVERY 6 HOURS NEEDED FOR SHORTNES S OF BREATH active Not Available Not Available No t Available donepezil 5 mg tablet TAKE 1 TABLET BY MOUTH EVERY DAY AT BEDTIME active Not Available Not Available No t Available azithromy yosvany 250 mg tablet TAKE 2 TABLETS BY MOUTH FOR 1 DAY THEN TAKE 1 TABLET BY MOUTH DAILY FOR 4 DAYS 05/05 completed Not Available Not Available Not Available ibuprofen 800 mg tablet TAKE 1 TABLET BY MOUTH THREE TIMES DAILY NEEDED FOR PAIN active Not Available Not Available No t Available fluconazo le 150 mg tablet TAKE 1 TABLET BY MOUTH NOW. REPEAT IN 1 WEEK BY MOUTH 1 TIME A SINGLE DOSE 05/08 completed Not Available Not Available Not Available Claritin 10 mg tablet take 1 tablet by oral route every day 05/01 completed Prescrib ed Elsewher e: Yes Loca tion: Bernadette [facility] M odify By: amkuhl Crow ncounter DateTime : 04/13/20 01:30:00 PM Not Available Not Available Not Available meloxicam 15 mg tablet TAKE 1 TABLET BY MOUTH DAILY NEEDED FOR PAIN active Not Available Not Available No t Available prednison e 20 mg tablet TAKE 2 TABLETS BY MOUTH DAILY active Not Available Not Available No t Available amlodipin e 5 mg tablet active [...] Elsewher e: Yes Loca tion: Bernadette maria [facility] odify By: maritza bryan DateTime : 04/13/20 01:30:00 PM Not Available Not Available Not Available Vitamin B-12 50 mcg tablet 05/05 completed Prescrib ed Elsewher e: Yes Loca tion: Bernadette maria [facility] odify By: maritza chaconunter DateTime : 04/13/20 01:30:00 PM Not Available Not Available Not Available Metrogel Vaginal 0.75 % (37.5 mg/5 gram) insert 1 applicat orful by vaginal route every day at bedtime for 5 nights 06/24 completed Prescrib ed Elsewher e: No [facility] By: lani schuler DateTime : 10/23/19 09:01:39 AM Not Available Not Available Not Available Prilosec 10 mg capsule,d elayed release take 2 capsule by oral route every day before a meal 04/13 completed Prescrib ed Elsewher e: Yes Loca tion: [facility] odify By: maritza chaconuntjaleel DateTime : 06/24/20 17 03:30:00 PM Not Available Not Available Not Available betametha sone valerate 0.1 % topical cream apply by topical route every day a thin layer to the affected area(s) 05/30 completed Prescrib ed Elsewher e: No Locat ion: [facility] odify By: talisha Chaney ntjaleel DateTime : 12/03/19 18 01:00:00 PM Not Available Not Available Not Available benzonata te 100 mg capsule TAKE 2 CAPSULES BY MOUTH THREE TIMES DAILY 05/08 completed Not Available Not Available Not Available pantopraz ole 40 mg tablet,de layed release active Not Available Not Available Not Available Cipro 500 mg tablet take 1 tablet by oral route every 12 hours 10/21 completed Prescrib ed Elsewher e: No Locat ion: Bernadette maria [facility] odify By: machelley Sarah schuler DateTime : 11/19/19 16 01:00:00 PM Not Available Not Available Not Available Neurontin 100 mg capsule take 1 capsule by oral route 3 times every day 11/19 completed Prescrib ed Elsewher e: No Locat ion: [facility] crow [facility] odify By: abeba Maria ncounter DateTime : 05/24/20 15 11:15:00 AM Not Available Not Available Not Available monteluka st 10 mg tablet active Not Available Not Available Not Available irbesarta n 150 mg tablet take 1 tablet by oral route every day 05/01 completed Prescrib ed Elsewher e: Yes Loca tion: Bernadette maria [facility] odify By: amjade Maria ncounter DateTime : 04/13/20 19 01:30:00 PM Not Available Not Available Not Available levofloxa yosvany 500 mg tablet TAKE 1 TABLET BY MOUTH DAILY 05/05 completed Not Available Not Available Not Available levofloxa yosvany 750 mg tablet TAKE 1 TABLET BY MOUTH DAILY 05/05 completed Not Available Not Available Not Available Vitamin D2 1,250 mcg (50,000 unit) capsule take 1 capsule (17429LJ ITS) by oral route every week 11/16 completed Prescrib ed Elsewher e: No Locat ion: [facility] odify By: emmett colunga DateTime : 06/07/20 13 03:47:17 PM Not Available Not Available Not Available cefdinir 300 mg capsule TAKE 1 CAPSULE BY MOUTH EVERY 12 HOURS 05/05 completed Not Available Not Available Not Available fluticaso ne propionat e 50 mcg/actua tion nasal spray,[place] pension SHAKE LIQUID AND USE 1 SPRAY IN EACH NOSTRIL DAILY active Not Available Not Available No t Available doxycycli ne hyclate 100 mg tablet TAKE 1 TABLET BY MOUTH TWICE DAILY 05/05 completed Not Available Not Available Not Available irbesarta n 300 mg tablet active Not Available Not Available Not Available amoxicill in 500 mg-potass ium clavulana te 125 mg tablet TAKE 1 TABLET BY MOUTH EVERY 12 HOURS 05/05 completed Not Available Not Available Not Available Bactrim DS 800 mg-160 mg tablet take 1 tablet by oral route every 12 hours 11/19 completed Prescrib ed Elsewher e: No Locat ion: Bernadette maria [facility] odify By: abeba chaconunter DateTime : 06/13/20 15 08:20:53 AM Not Available Not Available Not Available magnesium 200 mg tablet 05/05 completed Prescrib ed Elsewher e: Yes Loca tion: Bernadette maria [facility] odify By: maritza Maria ncounter DateTime : 04/13/20 19 01:30:00 PM Not Available Not Available Not Available Singulair 4 mg oral granules in packet 10/21 completed Prescrib ed Elsewher e: Yes Loca tion: Bernadette maria [facility] odify By: lani schuler DateTime : 05/11/20 13 01:30:00 PM Not Available Not Available Not Available nitrofura ntoin monohydra te/macroc rystals 100 mg capsule TAKE 1 CAPSULE BY MOUTH EVERY 12 HOURS WITH FOOD FOR 5 DAYS 05/05 completed Not Available Not Available Not Available duloxetin e 30 mg capsule,d elayed release active Not Available Not Available Not Available loperamid e active Not Available Not Available Not Available Acid Relief (cimetidi ne) 200 mg tablet take 1 tablet by oral route 2 times every day 30 minutes before meals 05/11 completed Prescrib ed Elsewher e: Yes Loca tion: Bernadette maria [facility] odify By: nicolás Maria ncounter DateTime : 02/11/20 12 03:00:00 PM Not Available Not Available Not Available Symbicort 160 mcg-4.5 mcg/actua tion HFA aerosol inhaler inhale 2 puff by inhalati on route 2 times every day in the morning and evening 2018 active Prescrib ed Elsewher e: Yes Loca tion: Bernadette maria [facility] odify By: maritza chaconunter DateTime : 04/13/20 19 01:30:00 PM Not Available Not Available Not Available ProChambe r USE FOUR TIMES DAILY WITH INHALER 05/05 completed Not Available Not Available Not Available sodium,po tassium,m ag sulfates 17.5 gram-3.13 gram-1.6 gram oral soln MIX AND DRINK DIRECTED 05/05 completed Not Available Not Available Not Available Vios Aerosol Delivery System DIRECTED active Not Available Not Available No t Available Diurex 162.5 mg-50 mg tablet Take [...] Available No t Available Vitals Date Recorded Systolic And Diastolic Provider Name and Address Organization Details Last Updated DateTime 05/01/2022 132/80 mm[Hg] Riana Colon, LAZ- [address], [place], [address], [facility] 05/01/2022 15:09:23 Date Recorded Body height Body mass index (BMI) Body weight Provider Name and Address Organization Details Last Updated DateTime 05/01/2022 157.48 cm 32.4 kg/m2 46964.85 g Mari Angelo [facility] 05/01/2022 14:44:53 Date Recorded Body height Body mass index (BMI) Body weight Systolic And Diastolic Provider Name and Address Organization Details Last Updated DateTime 05/05/2023 157.48 cm 33.8 kg/m2 74740.59 g 119/75 mm[Hg] Rosette Matute [facility] 05/05/2023 12:18:55 Date Recorded Body height Body mass index (BMI) Body weight Systolic And Diastolic Provider Name and Address Organization Details Last Updated DateTime 05/08/2025 157.48 cm 31.1 kg/m2 24749.7 g 143/78 mm[Hg] Lakeisha Martinez [facility] 05/08/2025 11:04:55 Social History Question Answer Notes LastModified by Organizat ion Details LastModified Time Tobacco Smoking Status Former Smoker Mari Angelo [facility] 05/01/2022 14:50:46 Are You Blind Or Do You Have [...] Yes Information not available 05/01/2022 Do You Use Sunscreen Routinely? Yes Information not available 05/01/2022 Do You Have Difficulty Walking Or Climbing Stairs? No Information not available 05/01/2022 Sex: Unknown Functional Status Question Answer Note LastModified by Organizat ion Details LastModified Time Do you use any illicit or recreational drugs? No Information not available 05/01/2022 What is your level of alcohol consumption? Occasional Information not available 05/01/2022 Are you able to walk independently without assistance or assistive devices? YESWOREST Information not available 05/01/2022 Are you able to care for yourself independently? Yes Information not available 05/01/2022 Do you have difficulty dressing, bathing, grooming, or toileting? No Information not available 05/01/2022 What is your exercise level? Occasional Information not available 05/01/2022 Mental Status Question Answer Note LastModified by Organization D etails LastModified Time Do you feel stressed (tense, restless, nervous, or anxious, or unable to sleep at night)? [id number] Information not available 05/01/2022 Family History Relationship Description Onset Age of this Age Resolved Age Notes LastModified by Organization Details LastModified Time Maternal Aunt Diabetes mellitus Not available 2021 14:49:09 Paternal Grandmother Malignant neoplasm of breast Not available 2021 14:49:18 Paternal [...] Reflux (GERD) Y Hypertension Y Asthma Y GI Problems Y Gynecological History Statement/Question Response Abnormal Pap [...] Diagnosis SNOMED-CT Code Diagnosis ICD10 Code Diagnosis IMO Codes Diagnosis Note [id number] Riana Colon LAZ-[facility] [address] [address] 05/01/2022 14:25:42 05/01/2022 15:13:55 Gynecologic examination 01064643 Z01.419 Take Calcium with Vitamin D 12-1500mg daily. Do monthly self breast exams. It is advised to get annual flu shot in the fall and she could obtain at [facility] or [facility]. If you haven't received the Tdap vaccine [...] Labs UTD PCPMammo ordered Postmenopa usal osteopenia 966833175 M85.80 Screening for malignant neoplasm of colon 968868997 Z12.11 [id number] Riana Colon , LAZ-[facility] [address] [address] 05/05/2023 11:48:09 05/05/2023 12:44:39 Gynecologic examination 89428938 Z01.419 Take Calcium with Vitamin D 12-1500mg daily. Do monthly self breast exams. It is advised to get annual flu shot in the fall and she could obtain at [facility] or [facility]. If you haven't received the Tdap vaccine [...] Labs UTD PCPMammo ordered Screening mammography 24 784709 Z12.31 Postmenopa usal osteopenia 397042553 M85.80 [id number] LILY Coreas [place] [address] [address] 05/08/2025 10:22:39 05/10/2025 11:51:51 Gynecologic examination 95779524 Z01.020 [id number] WWEpostmen opausalPap - not indicatedS TI screen - declinedMa mmogram - order givenColon cancer screening - referral to [facility] - order givenRouti ne labs - PCPBP precaution s discussed, encouraged PCP f/uRTC in 1 yr or sooner if needed Do monthly self breast exams.It is advised to get annual flu shot in the fall and she could obtain at local pharmacy. If you haven't received the Tdap vaccine in the last 10 years you should obtain one as well.Have mammogram yearly, bone density every 2-3 years and stay up to date on colon cancer screening. Engage in regular exercise. Avoid tobacco and illicit drugs. This lifestyle behavior pattern will lead to less health conditions and longer life span. If BMI greater than 25 dietary consult advised.Qu estions have been answered. Diarrhea 96472760 R19.7 [id number] Referral to GI placed, encouraged f/u with PCP as well, precaution s discussed Screening for malignant neoplasm of breast 681011691 Z12.39 [id number] Screening for osteoporosis 026220083 Z13.820 [id number] Health Concerns Section Related Observation LastModified by Organization Detai ls LastModified Time None Recorded Concern Status LastModified by Organization Details LastModified Time None Recorded Advance Directives Directive None Recorded Payers Insurance Date Sequence Insurance Name Policy Number Policy [place] Covered Member ID Small[place] Member ID Guarantor Name 05/08/2025 1 [facility] (MEDICARE REPLACEMENT/A DVANTAGE - HMO) [id number] Shefali Wyman [id number] Shefali Wyman Notes Date Note Type Note Provider Name and Address Organization Details Recorded Time 2 text/html Annual Gold Blower Post-MenopausalReported by PatientGenitourinary symptomsFor menopausal symptoms, patient reportsno menopausal symptomsandnormal vaginal lubrication. For vaginal bleeding, patient reportshistory of menopause having occurredandno history of post menopausal bleeding. For urinary symptoms, patient reportsno hematuria,no incontinence,no nocturia, andno urinary frequency. For vulva, patient reportsno genital lesionandno vulvar atrophy. For vagina, patient reportsnormal vaginal dischargeandno vaginal atrophy.Breast symptomsFor breast, patient reportsno breast lump,no nipple discharge, andno breast pain.Psychological symptomsFor sexual complaints, patient reportsno sexual complaints. For psychological symptoms, patient reportsno depressionandno anxiety.Preventative measuresFor preventive measures, patient reportsencourage regular mammograms starting age 40,encourage self breast examination,encourage regular exercise,encourage no tobacco use,needs to schedule mammogram,needs to schedule colonoscopy, andneeds to schedule bone density. Riana Colon, LAZ- [address], [place], [address], [facility] 05/01/2022 15:10:38 3 text/html Annual Gold Blower Post-MenopausalReported by PatientGenitourinary symptomsFor menopausal symptoms, patient reportsno menopausal symptomsandnormal vaginal lubrication. For vaginal bleeding, patient reportshistory of menopause having occurredandno history of post menopausal bleeding. For urinary symptoms, patient reportsno hematuria,no incontinence,no nocturia, andno urinary frequency. For vulva, patient reportsno genital lesionandno vulvar atrophy. For vagina, patient reportsnormal vaginal dischargeandno vaginal atrophy.Breast symptomsFor breast, patient reportsno breast lump,no nipple discharge, andno breast pain.Psychological symptomsFor sexual complaints, patient reportsno sexual complaints. For psychological symptoms, patient reportsno depressionandno anxiety.Preventative measuresFor preventive measures, patient reportsencourage regular mammograms starting age 40,encourage self breast examination,encourage regular exercise,encourage no tobacco use,needs to schedule mammogram,history of recent colonoscopy, andneeds to schedule bone density. LILY Gonzalez- [address], [place], [address], [facility] 05/05/2023 12:44:31 5 text/html Annual Gold Blower Post-MenopausalReported by PatientGenitourinary symptomsFor menopausal symptoms, patient reportsno menopausal symptomsandnormal vaginal lubrication. For vaginal bleeding, patient reportshistory of menopause having occurredandno history of post menopausal bleeding. For urinary symptoms, patient reportsno hematuria,no incontinence,no nocturia, andno urinary frequency. For vulva, patient reportsno genital lesionandno vulvar atrophy. For vagina, patient reportsnormal vaginal dischargeandno vaginal atrophy.Breast symptomsFor breast, patient reportsno breast lump,no nipple discharge, andno breast pain.Psychological symptomsFor sexual complaints, patient reportsno sexual complaints. For psychological symptoms, patient reportsno depressionandno anxiety.Preventative measuresFor preventive measures, patient reportsencourage regular mammograms starting age 40,encourage self breast examination,encourage regular exercise, andencourage no tobacco use.69yo wwepostmenopausalh/o hysterectomy (non-cancerous indications)mammogram last exa last 2012 frequent loose stools for the past 6 months. No colonoscopy hx LILY Coreas [address], [place], [address], [facility] 05/10/2025 11:44:03 OBGyn Episode Ob Episode Information Episode Created Date Number of Fetuses Patient Bloodtype Patient rh Status Prepregnancy Weight lbs Domestic Partner Domestic Partner Phone Father Name Wooden Fence Erector Status 05/01/20 22 1 CLOSED Fetus Data First Name Last Name Admitted to NICU Weight (g) Sex Living Outcome Pediatric Complications Fetus ID Race Codes Race Delivery Type F [id number] Vaginal Delivery Bipin Calculation Initial Bipin Date [...] Domestic Partner Domestic Partner Phone Father Name Wooden Fence Erector Status 05/01/20 22 1 CLOSED Fetus Data First Name Last Name Admitted to NICU Weight (g) Sex Living Outcome Pediatric Complications Fetus ID Race Codes Race Delivery Type M [id number] Vaginal Delivery Bipin Calculation Initial Bipin Date [...]
--- OUTSIDE RECORDS SUMMARY | 2025-08-31 00:44 | XMS_ITS | Clinical Summary ---
Author Organization [facility] Address [address] [place] [address] Care Team Providers Care Laboratory Administrative Director Name Role Phone En Muñiz MD Primary Care Provider [phone] Source Comments [facility],non-owned Affiliates and Associated Physician Practices is amultiple site organization consisting of ambulatory clinics and hospital sitesin [place], [place], [place] and [place]. This disclosure is being madepursuant to the Care Everywhere program and may not contain all information available regarding this patient. Last updated 18.[facility] Allergies Active Allergy Reactions Criticality Noted Date Comments Morphine Urticaria Medium 06/14/2019 Medications * Be aware that medications may not be up to date on this document. Alwaysverify current medications with the patient. irbesartan (AVAPRO) 150 MG tablet Take 150 mg by mouth once daily Active montelukast (SINGULAIR) 10 MG tablet Take 10 mg by mouth at bedtime Active pantoprazole EC (PROTONIX) 20 MG tablet Take 20 mg by mouth once daily Active Pyridoxine HCl (VITAMIN B-6 PO) Active Cyanocobalamin (VITAMIN B12) 100 MCG Active budesonide-form oterol (SYMBICORT) 160-4.5 MCG/ACT inhaler Inhale 2 puffs by mouth 2 times daily Active docusate sodium (COLACE) 100 MG capsule Take 100 mg by mouth once daily Active cetirizine (ZYRTEC) 10 MG tablet Take 10 mg by mouth once daily Active Phenylephrine-D M-GG-APAP (MUCINEX SINUS-MAX) [id number] MG Acti ve Social History Tobacco Use Types Packs/Day Years Used Date Smoking Tobacco: Former Cigarettes 0 Q uit: 2003 Smokeless Tobacco: Never Comments Unknown Sex and Gender Information Value Date Recorded Sex Assigned at Not on file 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
[2025-08-31 10:15] VITALS: BP 120/87; PULSE 102; RESP 16; TEMP 36.2; O2SAT 95
[2025-08-31] MEDS: LACTATED RINGERS 1,000 ML 150 ML IV CONT (10:22)
--- NOTE | 2025-08-31 10:32 | P.PNAN_ITS ---
Anes - Initial Pre Proc Eval Procedure: Operation Date: 08/31/25 13:00 Proposed Procedures p Diagnostic Colonoscopy - Pedro Pablo Mendenhall MD Date/Time: 08/31/25 10:32 Surgeon: Pedro Pablo Mendenhall MD Pre Op Diagnosis: Diarrhea, unspecified Patient Data Age: 70 Gender: F Height: 1.57 m Weight: 76.5 kg Last Vital Signs Temp 36.2 C L 08/31/25 10:15 Pulse 102 H 08/31/25 10:15 Resp 16 08/31/25 10:15 BP 120/87 08/31/25 10:15 Pulse Ox 95 08/31/25 10:15 O2 Del Method Room Air 08/31/25 10:15 Allergies Allergy/AdvReac Type Severity Reaction Status Date / Time morphine Allergy Unknown Itching Verified 08/31/25 10:13 poison ifeoma extract Allergy Unknown Rash Verified 08/31/25 10:13 doxycycline AdvReac Intermediate difficulty Verified 08/31/25 10:13 swallowing Home Medications ?Medication ?Instructions ?Recorded ?Confirmed ?Type nebulizer accessories #1 ea 10/23/24 08/21/25 Rx nebulizer and compressor #1 ea 10/23/24 08/21/25 Rx duloxetine 30 mg capsule,delayed 30 mg PO DAILY #100 c aps 12/21/24 08/21/25 Rx release (Cymbalta) meloxicam 15 mg tablet 15 mg PO DAILY PRN pain #30 tabs 12/21/24 08/31/25 Rx donepezil 5 mg tablet (Aricept) 5 mg PO QHS #30 tabs 0 02/16/25 08/31/25 Rx montelukast 10 mg tablet 10 mg PO DAILY #90 tabs 08/0 01/2008/31/25 Rx ipratropium 0.5 mg-albuterol 3 mg 3 ml inhalation Q6H PRN shortness 05/30/25 08/21/25 Rx (2.5 mg base)/3 mL nebulization of breath #90 mL soln pantoprazole 40 mg tablet,delayed 40 mg PO QAM #90 tab s 05/30/25 08/31/25 Rx release (Protonix) albuterol sulfate 90 mcg/actuation 2 inh inhalation QI D PRN shortness 08/21/25 08/21/25 Rx aerosol inhaler of breath or wheezing #8.5 g мария fluticasone propionate 50 1 spray intranasal DAILY #16 grams 08/21/25 08/31/25 Rx mcg/actuation nasal spray,suspension (Flonase Allergy Relief) budesonide-formoterol HFA 160 2 puff inhalation Q12H # 10.2 grams 08/23/25 08/31/25 Rx mcg-4.5 mcg/actuation aerosol inhaler (Symbicort) amlodipine 5 mg tablet 5 mg PO DAILY #100 tabs 01/2008/31/25 Rx irbesartan 300 mg tablet 300 mg PO DAILY #100 tabs 08/31/25 Rx Patient hx anesthesia problems: none Family hx anesthesia problems: none Results Review: All pre-operative results and documents have been reviewed as part of the pre- operative evaluation. [facility] Past Medical History Medical History BMI 31.0-31.9,adult Fecal incontinence Change in bowel habits Pneumonia Acute hypoxic respiratory failure Right lower lobe pneumonia Asthma exacerbation Confusion Chronic neck pain (~09/2024) COPD (chronic obstructive pulmonary disease) moderate emphysema on CT of the chest 10/13/2023. diagnostic CT of the chest on 10/12/2024 with moderate emphysema. Functional memory problem (~2023) Osteopenia after menopause T-score -2.1 at the spine, -2.0 left hip, -1.7 right hip on 07/17/2022. Coronary artery calcification seen on CAT scan (10/13/23) calcifications noted on CT of the chest 10/13/2023. Asthma Chronic bilateral thoracic back pain (07/07/17) MRI of the thoracic spine on 07/10/2023 with degenerative changes. Spondylosis of the thoracic spine on chest x-ray 07/04/2023. At low risk for fall Chronic cough CT of the chest on 10/13/2023 with moderate Emphysema, coronary artery calcifications, severe spondylosis of cervical thoracic spine. Acute thoracic back pain (~02/2023) spondylosis of the thoracic spine on chest x-ray 04/06/2023. BMI 34.0-34.9,adult Obesity (BMI 30.0-34.9) Encounter for HCV screening test for low risk patient (10/10/22) screening by house calls advanced business practices officer 10/10/2022 was negative for hepatitis C. UTI (urinary tract infection) BMI 32.0-32.9,adult Seasonal allergic rhinitis Chronic depression (~10/30/20) Breast cancer screening by mammogram mammogram normal on 07/17/2022. Colon cancer screening history of colon polyps 2002 with normal subsequent colonoscopies. Colonoscopy 12/09/2022 was normal with recheck in 10 years. Chronic left shoulder pain Lipoma of shoulder BMI 33.0-33.9,adult Chest pain Acute bronchitis chest x-ray on 10/14/2021 Was negative except for hyperinflation. chest x- ray 04/06/2023 with no active lung disease. Vitamin D insufficiency Level normal at 50 on 06/23/2023. Level normal at 71 on 12/22/2024. Vitamin B12 deficiency anemia 940 on 11/19/2021. Level normal at 562 with hemoglobin 15.4 on 06/23/2023. Level slightly low at 398 with hemoglobin 15.9 on 12/22/2024. Mixed hyperlipidemia total cholesterol 267, triglycerides 137, HDL 70, LDL 170 on 11/19/2021. Cholesterol 277, triglycerides 147, HDL excellent at 60, LDL 188 with ratio 4.6 on 06/23/2023. Cholesterol 236, triglycerides 154, HDL 54, LDL 140 on 01/21/2024. Cholesterol 161, triglycerides 289, HDL 62, LDL 86 on 03/25/2024. Cholesterol 236, triglycerides 137, HDL 59, LDL 132 on 12/22/2024. Gastro-esophageal reflux disease without esophagitis Essential (primary) hypertension Chronic bilateral low back pain with bilateral sciatica Chronic constipation Moderate persistent asthma, uncomplicated PFT on 07/31/2023 with moderate to severe obstructive defect with response to bronchodilator therapy. Acute sinusitis, unspecified Surgical History Surgical History H/O: hysterectomy History of cholecystectomy Family History Family History Mother Patient's mother is , Onset Age: 79 Father Acute myocardial infarction, Onset Age: 58 Sibling Acute myocardial infarction, Onset Age: 75 Grandparent Family history of malignant neoplasm Family history of malignant neoplasm of breast Social History Social History Smoking packs per day: 2 Smoking cigarettes per day: 40.0 Years smoked: 30 Smoking pack-years: 60.00 Smoking status: Former smoker Tobacco type: cigarettes Alcohol intake: never Substance use: never Substance use type: does not use Lack of Transportation: No Lack of Food: Never True Current Housing: I Have Housing Concerned About Future Housing: No Difficulty Paying Gas/Electric Bills: No Difficulty Paying for Meds: No Currently Unemployed: No Education: High School Diploma/GED Difficulty w/ Childcare or Family Care: No Living arrangements: with family Occupation/Education: retired Gender identity (if verbalized by the patient): Female Spiritual care concerns: No Anes - Eval Final PreProcedure Day of Procedure 08/31/25 10:32 Patient weight: obese Heart: regular rate and rhythm Lungs: clear to auscultation Airway: Mallampati scale class II Neurological: alert and oriented Last oral intake: >/= 8 hours ASA classification: III Emergent: no Anesthetic plan: proceed Anesthesia type and monitoring: general GIVS and standard monitoring Results Review: All pre-operative results and documents have been reviewed as part of the pre- operative evaluation. Informed Consent: The patient's anesthetic plan and its attendant risks and benefits were discussed with the patient/family/POA. Questions were solicited and answers provided to the satisfaction of the patient/family/POA.
--- NOTE | 2025-08-31 10:35 | P.HP_ITS ---
History of Present Illness History of Present Illness Consent: Risks, benefits, and alternatives have been discussed and questions answered. Patient agrees to proceed with procedure. Chief complaint: Diarrhea, unspecified Narrative: Shefali Wyman is a 70 year old female with diarrhea, ct scan no major findings, last colonoscopy 2022 Review of Systems Review of Systems: All systems reviewed & are unremarkable except as noted in HPI and below PMFSH Past Medical History Medical History BMI 31.0-31.9,adult Fecal incontinence Change in bowel habits Pneumonia Acute hypoxic respiratory failure Right lower lobe pneumonia Asthma exacerbation Confusion Chronic neck pain (~09/2024) COPD (chronic obstructive pulmonary disease) moderate emphysema on CT of the chest 10/13/2023. diagnostic CT of the chest on 10/12/2024 with moderate emphysema. Functional memory problem (~2023) Osteopenia after menopause T-score -2.1 at the spine, -2.0 left hip, -1.7 right hip on 07/17/2022. Coronary artery calcification seen on CAT scan (10/13/23) calcifications noted on CT of the chest 10/13/2023. Asthma Chronic bilateral thoracic back pain (07/07/17) MRI of the thoracic spine on 07/10/2023 with degenerative changes. Spondylosis of the thoracic spine on chest x-ray 07/04/2023. At low risk for fall Chronic cough CT of the chest on 10/13/2023 with moderate Emphysema, coronary artery calcifications, severe spondylosis of cervical thoracic spine. Acute thoracic back pain (~02/2023) spondylosis of the thoracic spine on chest x-ray 04/06/2023. BMI 34.0-34.9,adult Obesity (BMI 30.0-34.9) Encounter for HCV screening test for low risk patient (10/10/22) screening by house calls advanced veterinary practice manager 10/10/2022 was negative for hepatitis C. UTI (urinary tract infection) BMI 32.0-32.9,adult Seasonal allergic rhinitis Chronic depression (~10/30/20) Breast cancer screening by mammogram mammogram normal on 07/17/2022. Colon cancer screening history of colon polyps 2002 with normal subsequent colonoscopies. Colonoscopy 12/09/2022 was normal with recheck in 10 years. Chronic left shoulder pain Lipoma of shoulder BMI 33.0-33.9,adult Chest pain Acute bronchitis chest x-ray on 10/14/2021 Was negative except for hyperinflation. chest x- ray 04/06/2023 with no active lung disease. Vitamin D insufficiency Level normal at 50 on 06/23/2023. Level normal at 71 on 12/22/2024. Vitamin B12 deficiency anemia 940 on 11/19/2021. Level normal at 562 with hemoglobin 15.4 on 06/23/2023. Level slightly low at 398 with hemoglobin 15.9 on 12/22/2024. Mixed hyperlipidemia total cholesterol 267, triglycerides 137, HDL 70, LDL 170 on 11/19/2021. Cholesterol 277, triglycerides 147, HDL excellent at 60, LDL 188 with ratio 4.6 on 06/23/2023. Cholesterol 236, triglycerides 154, HDL 54, LDL 140 on 01/21/2024. Cholesterol 161, triglycerides 289, HDL 62, LDL 86 on 03/25/2024. Cholesterol 236, triglycerides 137, HDL 59, LDL 132 on 12/22/2024. Gastro-esophageal reflux disease without esophagitis Essential (primary) hypertension Chronic bilateral low back pain with bilateral sciatica Chronic constipation Moderate persistent asthma, uncomplicated PFT on 07/31/2023 with moderate to severe obstructive defect with response to bronchodilator therapy. Acute sinusitis, unspecified Surgical History Surgical History H/O: hysterectomy History of cholecystectomy Family History Family History Mother Patient's mother is , Onset Age: 79 Father Acute myocardial infarction, Onset Age: 58 Sibling Acute myocardial infarction, Onset Age: 75 Grandparent Family history of malignant neoplasm Family history of malignant neoplasm of breast Social History Social History Smoking packs per day: 2 Smoking cigarettes per day: 40.0 Years smoked: 30 Smoking pack-years: 60.00 Smoking status: Former smoker Tobacco type: cigarettes Alcohol intake: never Substance use: never Substance use type: does not use Lack of Transportation: No Lack of Food: Never True Current Housing: I Have Housing Concerned About Future Housing: No Difficulty Paying Gas/Electric Bills: No Difficulty Paying for Meds: No Currently Unemployed: No Education: High School Diploma/GED Difficulty w/ Childcare or Family Care: No Living arrangements: with family Occupation/Education: retired Gender identity (if verbalized by the patient): Female Spiritual care concerns: No Meds Home Medications and Allergies Home Medications ?Medication ?Instructions ?Recorded ?Confirmed ?Type nebulizer accessories #1 ea 10/23/24 08/21/25 Rx nebulizer and compressor #1 ea 10/23/24 08/21/25 Rx duloxetine 30 mg capsule,delayed 30 mg PO DAILY #100 c aps 12/21/24 08/21/25 Rx release (Cymbalta) meloxicam 15 mg tablet 15 mg PO DAILY PRN pain #30 tabs 12/21/24 08/31/25 Rx donepezil 5 mg tablet (Aricept) 5 mg PO QHS #30 tabs 0 02/16/25 08/31/25 Rx montelukast 10 mg tablet 10 mg PO DAILY #90 tabs 08/0 01/2008/31/25 Rx ipratropium 0.5 mg-albuterol 3 mg 3 ml inhalation Q6H PRN shortness 05/30/25 08/21/25 Rx (2.5 mg base)/3 mL nebulization of breath #90 mL soln pantoprazole 40 mg tablet,delayed 40 mg PO QAM #90 tab s 05/30/25 08/31/25 Rx release (Protonix) albuterol sulfate 90 mcg/actuation 2 inh inhalation QI D PRN shortness 08/21/25 08/21/25 Rx aerosol inhaler of breath or wheezing #8.5 g мария fluticasone propionate 50 1 spray intranasal DAILY #16 grams 08/21/25 08/31/25 Rx mcg/actuation nasal spray,suspension (Flonase Allergy Relief) budesonide-formoterol HFA 160 2 puff inhalation Q12H # 10.2 grams 08/23/25 08/31/25 Rx mcg-4.5 mcg/actuation aerosol inhaler (Symbicort) amlodipine 5 mg tablet 5 mg PO DAILY #100 tabs 120 01/2008/31/25 Rx irbesartan 300 mg tablet 300 mg PO DAILY #100 tabs 08/31/25 Rx Allergies Allergy/AdvReac Type Severity Reaction Status Date / Time morphine Allergy Unknown Itching Verified 08/31/25 10:13 poison ifeoma extract Allergy Unknown Rash Verified 08/31/25 10:13 doxycycline AdvReac Intermediate difficulty Verified 08/31/25 10:13 swallowing Vital Signs Vital Signs - 24 hr 08/31/25 10:15 Temperature 97.2 F L Pulse Rate 102 H Respiratory Rate 16 Blood Pressure 120/87 Pulse Oximetry 95 Oxygen Delivery Room Air Exam Const: General: comfortable and no acute distress HENMT: Face/Nose/Sinus: Normal nares present Eyes: General: appearance normal, both eyes and all related structures Resp: Auscultation: clear to auscultation bilaterally Cardio: Rate: regular rate Rhythm: regular rhythm GI: Inspection: non-distended GI Palp: Yes Soft to palpation Skin: General skin exam: normal color Extrem: General: normal to inspection Psych: Mental Status: mental status grossly normal Assessment and Plan Assessment and plan (1) Diarrhea: Qualifiers: Diarrhea type: unspecified type Qualified Code(s): R19.7 - Diarrhea, unspecified Code(s): R19.7 - Diarrhea, unspecified Status: Acute Assessment and Plan: colonoscopy with bx
--- NOTE | 2025-08-31 10:48 | S_PTH ---
PATIENT: Shefali Wyman LOC: [facility]#:[id number] AGE/SX: 70/F ROOM: RE08/31/[address]: Pedro Pablo Mendenhall MD : [id number] BED: DIS: 08/31/2025 SPEC #: [id number] RECD: 08/31/25 11:28 STATUS: MARK REVilma #: [id number] DONNA: 08/31/25 10:[address]: Pedro Pablo Mendenhall DEPT: [facility] Surgical RECD BY: Ros Ambrocio ENTERED: 08/31/25 11:29 SP TYPE: Surgical OTHR DR: En Muñiz MD Tissues: A - Colon Polypectomy Procedures: Hematoxylin and Eosin Stain Gross and Microscopic Level 4
[2025-08-31 10:49] VITALS: BP 126/63; PULSE 83; RESP 25; O2SAT 94
[2025-08-31 10:59] VITALS: BP 122/67; PULSE 71; RESP 20; O2SAT 98
[2025-08-31 11:09] VITALS: BP 136/68; PULSE 72; RESP 18; O2SAT 100
== END 2025-08-31 11:16 | disposition home or self-care (01) ==
PROVIDERS: PCP Family Medicine; Referring Provider Nurse Practitioner Family; Visit Provider Internal Medicine Gastroenterology
PROC: 0DJD8ZZ Inspection of Lower Intestinal Tract, Via Natural or Artificial Opening Endoscopic (ICD-10-PCS; CPT 45378; principal; 2025-08-31 13:00)
DX: R19.7 Diarrhea, unspecified (principal); K63.89 Other specified diseases of intestine; K57.30 Diverticulosis of large intestine without perforation or abscess without bleeding; K64.8 Other hemorrhoids; K64.4 Residual hemorrhoidal skin tags; Z87.891 Personal history of nicotine dependence; E66.9 Obesity, unspecified; Z68.30 Body mass index [BMI] 30.0-30.9, adult
CPT/HCPCS: 45380; 88305; J2704; J7120